=== PATIENT | female | born 1990 | race Hispanic/Latino ===

== ENCOUNTER 2022-08-09 07:15 | Outpatient (CLI) | payer OTHER, SELFPAY ==
[2022-08-09 07:44] VITALS: BP 117/74; PULSE 68; O2SAT 98
[2022-08-09 07:45] VITALS: TEMP 36.6; O2SAT 100
[2022-08-09 07:46] VITALS: O2SAT 82
[2022-08-09 08:20] VITALS: BMI 25.5
--- NOTE | 2022-08-13 15:00 | OB.TRI.HP_ITS ---
HPI - General General Date of Service: 08/09/22 HPI Narrative ROSENDO NOYOLA, is a 32 F who presents with decreased movement PFSH PFSH Home Medications Levothroid 08/09/22 [History Last Taken 08/08/22] 08/09/22 [History Last Taken 08/08/22] Allergy/AdvReac Type Severity Reaction Status Date / Time No Known Allergies Allergy Verified 08/09/22 08:24 NST FHR Rate Baby A Baseline: 120 Variability:: Moderate Accelerations:: 15 x 15 Decelerations:: None NST Reactive:: Yes Uterine Activity:: Few contractions Assessment & Plan (1) : PLAN: Called by nursing patient with care at [facility] [place] [place] with decreased movement. NST reactive. Okay to discharge home and follow-up at scheduled appointments
== END 2022-08-09 08:25 | disposition home or self-care (01) ==
LOC: WPOUT 07:35 → WP 07:36
PROVIDERS: Visit Provider Obstetrics & Gynecology
DX: O36.8190 Decreased fetal movements, unspecified trimester, not applicable or unspecified (principal); Z3A.00 Weeks of gestation of pregnancy not specified
CPT/HCPCS: 59025; 59050

== ENCOUNTER 2024-04-22 07:31 | Inpatient (IN) | payer OTHER, SELFPAY ==
[2024-04-22] VITALS (32 sets, daily range): BP systolic 91–126; BP diastolic 49–77; PULSE 62–84; RESP 14–16; TEMP 36.2–37.4; O2SAT 88–100; BMI 24.1
[2024-04-22] MEDS: Lactated Ringers 1,000 ML 999 ML IV (05:40)
[2024-04-22] MEDS: Ondansetron 4 MG/2 ML Vial IV (05:59)
[2024-04-22 06:12] LABS: Absolute Lymphocyte Count 1.47 X10^3/uL (0.83-4.51); Absolute Neutrophil Count 8.6 X10^3/uL (2.0-7.7); Basophil# 0.08 X10^3/uL; Basophil% 0.7 % (0-1); Eosinophil# 0.12 X10^3/uL; Eosinophils% 1.1 % (0-5); Hematocrit 33.9 % (37-47); Hemoglobin 12.5 g/dL (12.0-15.0); Lymphocyte # 1.47 X10^3/ul (0.83-4.51); Lymphocyte % 13.4 % (19-41); Mean Corp Hgb Conc 36.9 g/dL (32-36); Mean Corpuscular Hgb 33.2 pg (27.0-32.0); Mean Corpuscular Volume 89.9 fL (81-99); Mean Platelet Vol. 9.9 fl (6.2-12.0); Monocyte# 0.59 X10^3/uL; Monocyte% 5.4 % (0-10); NRBC Flagged by Analyzer 0 % (0-5); Neutrophil # 8.61 X10^3/uL (2.7-7.7); Neutrophil % 78.7 % (47-70); Platelet Count 231 K/mm3 (150-450); RBC Distribution Width SD 39.5 fl (35.1-43.9); Red Blood Count 3.77 M/mm3 (4.2-5.4)
[2024-04-22 06:48] LABS: ALB/GLOB Ratio 1.3 RATIO (0.9-2.4); AST(SGOT) 17 U/L (<=31); Alanine Aminotransfer ALT/SGPT 8 U/L (<=34); Albumin, Serum 3.6 g/dL (3.5-5.0); Alkaline Phosphatase 111 U/L (35-104); Anion Gap 10 (5-15); BUN 8 mg/dL (4-19); BUN/Creat Ratio 14.3 RATIO (10-20); Calcium 8.6 mg/dL (7.6-11.0); Carbon Dioxide 21.6 mmol/L (22.0-29.0); Chloride 106 mmol/L (96-108); Creatinine, Serum 0.54 mg/dL (0.70-1.20); EST Glomerular Filtration Rate 125 (>60); Estimated Creatinine Clearance 150.88 ml/min; Globulin 2.7 g/dL (2.2-4.2); Glucose 87 mg/dL (70-99); Potassium 3.2 mmol/L (3.3-5.1); Protein, Total 6.3 g/dL (5.9-8.4); Sodium Level 137 mmol/L (133-145); Syphilis Antibodies Nonreactive (Nonreactive); Total Bilirubin 0.31 mg/dL (0.00-1.30)
[2024-04-22 06:51] LABS: Record Kit Lot#, fFN D4035
[2024-04-22 06:52] LABS: Fetal Fibronectin POSITIVE
[2024-04-22] MEDS: Magnesium Sulfate 4gm/100mL 4 GM/100 ML IV.SOLN. IV (06:54)
[2024-04-22] MEDS: Betamethasone/Betamethasone 30 MG/5 ML Vial 12 MG IM (07:02)
--- NOTE | 2024-04-22 07:03 | HP.PCM.OB_ITS ---
HPI - General General Date of Admission: 04/22/24 Date of Service: 04/22/24 Chief Complaint: labor HPI Narrative ROSENDO NOYOLA, is a 33 F who presents with contractions. No vb or lof. Good FM. She has had nausea and vomiting as well. PFSH PFSH Home Medications ?Medication ?Instructions ?Recorded ?Last Taken ?Type levothyroxine 50 mcg tablet 50 mcg PO DAILY 04/22/24 0 04/21/24 History (Euthyrox) vits,calcium 91-iron 28 pkg PO DAILY pregnanc y 04/22/24 04/21/24 History mg-folic 975 mcg-dha 200 mg oral pack ( + DHA) sertraline 25 mg tablet (Zoloft) 25 mg PO DAILY 04/21/24 History Allergy/AdvReac Type Severity Reaction Status Date / Time No Known Allergies Allergy Verified 04/22/24 06:03 History Addt'l History: History 3rd degree laceration with first . This has been complicated by single umbilical artery, velamentous cord insertion and double bubble appearance on ultrasound of the abdomen. She was referred to the care center and was planning delivery at tertiary care center. NST FHR Rate Baby A Baseline: 130 Variability:: Moderate Vital Signs Vital Signs Vital Signs: 04/22/24 05:10 04/22/24 05:10 04/22/24 05:14 Pulse Rate 80 Blood Pressure 111/71 BP Systolic 111 BP Diastolic 71 Pulse Ox 100 04/22/24 05:14 Pulse Rate 77 Blood Pressure BP Systolic BP Diastolic Pulse Ox Weight Weight: 159 lb Body Mass Index (BMI) 24.1 Labs Labs Labs: Blood Type Pending Hct 33.9 % (37-47) L Hgb 12.5 g/dL (12.0-15.0) Syphilis Total Ab Nonreactive (Nonreactive) Assessment & Plan (1) 30 weeks gestation of : (2) labor: PLAN: Patient made cervical change from 1.5/50/-3 to 5/80/-3 with BBOW in 1 hour after IVF hydration. GBS and FFN were collected on admission. Mag gtt and PCN started. BMZ x 1 given. Bedside TAUS performed confirming baby is vertex. Vertex on exam as well. Epidural PRN pain control. (3) Single umbilical artery: (4) Velamentous insertion of umbilical cord: (5) Abnormal ultrasound: PLAN: Prominent CSP and double bubble sign. Patient was planning delivery at tertiary care center. Unable to safely transport patient given fast progression of labor. Telecommunications Officer aware and planning transport. (6) History of third degree perineal laceration:
[2024-04-22] MEDS: Magnesium Sulfate 4gm/100mL 2 GM/50 ML IV.SOLN. IV (07:15)
[2024-04-22 07:18] LABS: Color, Urine Yellow (Yellow); Glucose, Dipstick Normal (Normal); Ketone-Dipstick Negative (Negative); Leukocyte Esterase-Dipstick 25 /ul (Negative); Nitrite-Dipstick Negative (Negative); Occult Blood-Urine 25 /ul (Negative); Protein-Dipstick 30 mg/dl (Negative); Urine Bilirubin Dipstick Negative (Negative); Urine Clarity Sl. Cloudy (Clear); Urine Urobilinogen Normal (Normal); Urine pH 6.5 (5.0 - 8.0)
[2024-04-22] MEDS: Penicillin G Pot 5,000,000 UNITS in 0.9% Normal Saline (100mL MB+) 100 ML 150 UNITS IV (07:21)
--- NOTE | 2024-04-22 07:26 | PCM.PN.BLA ---
Progress Note Patient still uncomfortable with contractions. Assessment & Plan Assessment/Plan (1) History of third degree perineal laceration: (2) Abnormal ultrasound: (3) Velamentous insertion of umbilical cord: (4) Single umbilical artery: (5) labor: PLAN: Cervix re examined and /-3 BBOW, vertex presentation. Discussed with patient baby is not engaged in the pelvis. Vertex presentation. There is no funic presentation at this time. However encouraged patient to get an epidural for pain control in case there is an emergency such as a prolapsed cord with rupture of membranes, or baby turns to a non vertex presentation. Will deliver in OR. Discussed possible section but since still vertex planning vaginal delivery at this time. (6) 30 weeks gestation of :
[2024-04-22] MEDS: Lactated Ringers 1,000 ML 200 ML IV (07:30)
[2024-04-22 07:31] LABS: Bacteria 1+ /hpf (None Seen); Mucous, Urine 2+ /hpf (<or=2+); Red Blood Cells-Urine 0-5 SEEN /hpf (0-5); Squamous Epithelial Cells - UA 0-5 SEEN /hpf (5-10); White Blood Cells 0-5 SEEN /hpf (0-5)
[2024-04-22] MEDS: Magnesium Sulfate 20 GM/500 ML BAG 50 GM CONT INF (07:34)
--- NOTE | 2024-04-22 08:04 | PCM.PN.BLA ---
Progress Note Patient sitting up for epidural and I was called to bedside as RN concern for SROM. Assessment & Plan Assessment/Plan (1) History of third degree perineal laceration: (2) Abnormal ultrasound: (3) Velamentous insertion of umbilical cord: (4) Single umbilical artery: (5) labor: PLAN: Cvx difficult to exam given BBOW. head still palpated/vertex presentation. Intact membranes or a Forebag present. Cvx palpated anterior and along left and right sides. Patient will get epidural and then we will move to OR. (6) 30 weeks gestation of :
[2024-04-22] MEDS: fentaNYL-bupivacaine (epidural) 100 ML BAG EPIDURAL (08:15)
[2024-04-22] MEDS: Oxytocin 15 Units/NS 250ml 15 UNITS/250 ML IV.SOLN 999 UNITS IV (09:00)
[2024-04-22] MEDS: miSOPROStol 200 MCG Tablet 1000 MCG RC (09:35)
--- NOTE | 2024-04-22 09:57 | EX.PCM.OBVAG ---
Assessment & Plan (1) History of third degree perineal laceration: (2) Abnormal ultrasound: (3) Velamentous insertion of umbilical cord: (4) Single umbilical artery: (5) labor: (6) 30 weeks gestation of : Vaginal Delivery Maternal Presentation Maternal Presentation: Active Labor Type of Induction: Amniotomy Vaginal Delivery Information Procedure Performed: Spontaneous Vaginal Delivery Surgeon/Practitioner: Corinna Pichardo Date of Procedure: 04/22/24 Pre-Procedure Diagnosis: 30 week gestation, labor, anomaly on ultrasound, velamentous cord insertion, single umbilical artery Post-Procedure Diagnosis: As above Type of anesthesia: Epidural Special Medications: None Estimated Blood Loss: 75 mL Fluids Replaced: N/A Findings Description of procedure: Once the patient received her epidural she was taken back to the OR. Cvx 890/-2, vertex with a BBOW. Bedside TAUS performed showing vertex presentation as well and no funic presentation. Mint Wafer Depositor had requested to wait for rupture until transport team had arrived. However on bedside ultrasound FHT 40-50 bpm. Patient placed back on monitoring and FHT 50's bpm. Given this, AROM was performed for mostly clear fluid with some blood present. Cervix re examined and 990/-1. FHT was still in the 50's. The decision was made to start preparing the patient for a section. The FHT then started to recover to 90 bpm and the patient felt pressure. Cvx 10/100/0 station. Patient was placed in dorsal lithotomy position for a vaginal delivery. With one contraction and maternal pushing, the head and body delivered without traction, force or delay. The cord was clamped and cut immediately and the infant was handed off to the awaiting nursery staff. The placenta delivered spontaneously and was noted to be intact. There was a velamentous cord insertion and a 2 VC. The placenta was sent to pathology for review. A periurethral tear was noted to be bleeding. Pressure was applied for several minutes, however it continued to bleeding. The urethra was cleaned with betadine, and a straight catheter was inserted. The bladder was drained for 200 mL urine. The catheter was left in place during the repair. Two interrupted stitches were placed using 3-0 Vicryl to achieve hemostasis of the periurethral tear. No other lacerations were noted upon inspection. The catheter was removed. The patient then had several gushes of blood. The uterus was explored and no retained POC's were noted. The fundus was then firm and bleeding scant. Pitocin and rectal cytotec were given. A vaginal sweep was performed. Sponge and needle counts were correct. Procedure findings: VMI in vertex presentation. Clear - bloody fluid. Velamentous cord insertion of placenta with 2 VC Presentation: Vertex Amniotic Membrane Rupture Type: Artificial Amniotic Fluid Description: Clear and Bloody Placental Delivery Description: Spontaneous Placenta Disposition: Sent to Pathology Specimen collected: Yes Description of specimen(s) removed: Placenta Cord Vessel Description: 2 Vessels Cord Entanglement: None Cord Gases: ABG (RN attempted) and VBG (RN attempted) Infant A Gender: Male Delayed Cord Clamping: No Student Finance Advisor cushion assembler: No Post Vaginal Deli Medications given after delivery: IV Pitocin and Other (Cytotec) Laceration: Periurethral Extnsion/lac Complication Complications: No
[2024-04-22] MEDS: Sertraline 50 MG Tablet 25 MG PO (13:29)
[2024-04-22] MEDS: Levothyroxine 50 MCG Tablet PO (16:38)
== END 2024-04-22 16:45 | disposition home or self-care (01) | DRG 807 ==
PROVIDERS: Admitting Provider Obstetrics & Gynecology; Referring Provider Obstetrics & Gynecology; Visit Provider Obstetrics & Gynecology
DX: O60.14X0 Preterm labor third trimester with preterm delivery third trimester, not applicable or unspecified (principal); Z37.0 Single live birth; Z3A.30 30 weeks gestation of pregnancy; O43.123 Velamentous insertion of umbilical cord, third trimester; O71.82 Other specified trauma to perineum and vulva
CPT/HCPCS: 59025; 59050; 80053; 81001; 82731; 85025; 86780; 86850; 86900; 86901; 87081; 87653; J0702; J2405

== ENCOUNTER 2025-02-03 19:06 | Emergency (ER) | payer OTHER, SELFPAY ==
[2025-02-03 19:06] VITALS: BP 124/73; PULSE 91; RESP 18; TEMP 36.1; O2SAT 97; BMI 22.9
--- NOTE | 2025-02-03 19:23 | ED.VIS.GI ---
HPI HPI - GI History of Present Illness Chief Complaint: Abd Pain Informant: patient and spouse/S.O. Narrative Narrative: 34-year-old female presenting to the emergency room with a chief complaint of vomiting diarrhea. Patient states that this morning around 11:00 she began to experience vomiting. She states it has persisted throughout the day and is now included diarrhea. No fever. She notes abdominal cramping. She states that last night she felt well she was out with her sister who is feeling well. She does not believe she had any bad food. No rashes. No prior abdominal surgeries. No one else sick at home. She states she had a viral URI last week that she has basically recovered from. Patient states that she had spoke with phone nurse for her doctor's office. She states that it was recommended that if she had continued symptoms past 8 hours to come to emergency. She states that she was diagnosed with IBS in her 20s but states that she does not take any medicines for that and has been doing well from an IBS standpoint [facility] Medical History Depression Anxiety IBS (irritable bowel syndrome) Asthma depression Hypothyroid Home Medications ?Medication ?Instructions ?Recorded ?Last Taken ?Type sertraline 25 mg tablet (Zoloft) 50 mg PO DAILY depression 04/22/24 04/21/24 History levothyroxine 88 mcg tablet 88 mcg PO DAILY 02/03/25 Unknown History norethindrone (contraceptive) 0.35 0.35 mg PO DAILY 02/03/25 Unknown History mg tablet (Incassia) ondansetron 4 mg disintegrating 4 mg PO Q6H PRN PRN Nausea #15 tabs 02/03/25 Unknown Rx tablet Allergy/AdvReac Type Severity Reaction Status Date / Time No Known Allergies Allergy Verified 02/03/25 19:09 Family History Brother Heart murmur Mother Heart murmur Surgical History H/O breast augmentation History of tonsillectomy and adenoidectomy Social History Smoking Status: Never smoker ROS ROS ED Constitutional Constitutional ED: Reports sweats; Denies chills, fever(s) or weight loss Eyes Eyes: Denies change in vision or diplopia ENT ENT ED: Denies ear pain, rhinorrhea or sore throat Cardiovascular Cardiovascular: Denies chest pain, orthopnea, palpitations or racing heartbeat Respiratory/Chest Respiratory/Chest: Denies cough, dyspnea or orthopnea Gastrointestinal Gastrointestinal: Reports abdominal pain, diarrhea, nausea and vomiting Genitourinary Genitourinary ED: Denies dysuria, hematuria or urinary frequency Musculoskeletal Musculoskeletal: Denies arthralgias or myalgias Integumentary Denies abscess or rash Neurologic Neurologic: Denies headache(s) or weakness Psychiatric Psychiatric: Denies anxiety, depression, suicidal ideation or suicidal thoughts Endocrine Endocrinology: Denies polydipsia, polyphagia or polyuria Allergic/Immunologic Allergic/Immunologic ED: Denies mouth swelling, tongue swelling or urticaria EXAM Physical Exam Const Vital Signs: 02/03/25 19:06 Temperature 97 F L Temperature Source Temporal Pulse Rate 91 Respiratory Rate 18 Blood Pressure 124/73 H Blood Pressure Mean 90 Pulse Ox 97 Oxygen Delivery Method Room Air Positive well nourished and well developed General Appearance ED: well developed and NAD HEENT Reports normocephalic, head/scalp atraumatic and dry mucous membranes HEENT Narrative: Dry lips Mouth ED: Yes dry mucous membranes Mouth: dry mucous membranes Eyes PERRL and EOMs intact bilaterally Neck no lymphadenopathy, supple and no JVD Resp normal respiratory effort and clear to auscultation bilaterally Cardio regular rate, regular rhythm and no murmurs GI no masses Inspection: Negative for abdominal distention Auscultation: normoactive bowel sounds Palpation: soft and tender RLQ; Negative for guarding or rebound tenderness present Back/Spine no CVA tenderness and normal ROM Extremity normal to inspection General Extremety ED: Negative for edema General Extremity: Negative for edema Neuro oriented x3 and CN's II-XII intact bilaterally Sensorium / Orientation: alert Motor Exam: strength 5/5 throughout Psych mental status grossly normal Mood & Affect: Negative for depressed or tearful Skin no rashes or lesions noted and no wounds MDM MDM MDM Narrative Medical decision making narrative: Differential diagnosis includes but not limited to gastroenteritis colitis appendicitis mesenteric adenitis epiploic appendagitis dehydration electrolyte abnormalities Basic blood work obtained shows white count 12.9 there is 94.6 neutrophils lymphocytes 1.7. BMP shows a glucose of 112 normal creatinine CO2 of 21.4 anion gap is 12. Liver enzymes are normal lipase is normal at 14 test is negative. Patient received IV fluids as well as Zofran. She has been able to tolerate p.o. She states that she is feeling better. She continues to have some mild tenderness in the right lower quadrant. I spoke with her and her regarding the above results and whether or not to perform CT imaging. They are comfortable getting a CT. CT returned with no evidence of appendicitis. There is changes consistent with more of a diarrheal illness. I will write for the patient of Zofran at home. Imodium as needed. Monitor for changes return if worsening or concerns. Patient is comfortable with this plan History & Record Review Discussion w/independent historian: Patient and Significant other Additional record(s) reviewed:: Prior labs Lab Data Attestation: I reviewed the patient's lab results. Labs: Laboratory Results - last 24 hr 02/03/25 19:31 WBC 12.9 H RBC 4.52 Hgb 14.4 Hct 41.7 MCV 92.3 MCH 31.9 MCHC 34.5 RDW Std Deviation 38.9 RDW Coeff of Sanjay 11.5 L Plt Count 226 MPV 9.6 Immature Gran % (Auto) 0.300 Neut % (Auto) 94.6 H Lymph % (Auto) 1.7 L Dare % (Auto) 2.8 Eos % (Auto) 0.4 Baso % (Auto) 0.2 Absolute Neuts (auto) 12.2 H Absolute Lymphs (auto) 0.22 L Nucleated RBC % 0 Sodium 139 Potassium 3.9 Chloride 106 Carbon Dioxide 21.4 Anion Gap 12 BUN 15 Creatinine 0.66 L Estim Creat Clear Calc 122.30 Est GFR (MDRD) Non-Af 119 BUN/Creatinine Ratio 22.4 H Glucose 112 H Calcium 8.9 Total Bilirubin 0.87 Direct Bilirubin 0.36 H AST 18 ALT 13 Alkaline Phosphatase 57 Total Protein 7.1 Albumin 4.3 Globulin 2.8 Lipase 14 Serum , Qual NEGATIVE Radiography Diagnostic Testing: Clinical Impression(s) from Imaging Studies Abdomen/Pelvis CT 02/03/25 20:13 IMPRESSION: Mildly thickened loops of jejunum within the left upper quadrant, suggestive of mild jejunitis. Fluid within the endocervical canal. Please correlate with the patient's menstrual cycle. Reading Location: [id number] Discharge Plan Triage Chief Complaint: Abd Pain ED Provider: Kenneth Pepper Dx/Rx/DC Orders Clinical Impression: Vomiting and diarrhea, Abdominal pain Instructions: ED Gastroenteritis, Viral (Adult) Prescriptions: New ondansetron 4 mg tablet,disintegrating 4 mg PO Q6H PRN PRN (Reason: Nausea) Qty: 15 0RF No Action sertraline [Zoloft] 25 mg tablet 50 mg PO DAILY levothyroxine 88 mcg tablet 88 mcg PO DAILY norethindrone (contraceptive) [Incassia] 0.35 mg tablet 0.35 mg PO DAILY Primary Care Provider: Joseph Sotelo Referrals: Care Physician,No Primary [Non-Staff, Medical] Print Language: Danish Disposition Disposition: Home, Self Care
[2025-02-03] MEDS: 0.9% Normal Saline (1000mL) 1,000 ML 999 ML IV (19:29)
--- OUTSIDE RECORDS SUMMARY | 2025-02-03 19:34 | XMS RPT_ITS | CCD ---
Author Organization [facility] Care Team Providers Care Casing Builder Name Role Phone Mariaelena Lr Unavailable Unavailable Unknown, Referring Provider Unavailable Unav ailable John Barrett Unavailable Unavailable Unavailable Unavailable Unavailable Unavailable Unavailable Unavailable Bridget Abdul Unavailable Bridget Abdul Unavailable Ashlyn Grajeda Unavailable Unavailable Melissa Fang Unavailable Unavailable Unavailable Unavailable Unavailable Unavailable MD MELISSA FANG Attending Elizabeth MD MELISSA Espinoza Referring Elizabeth vaNamita Jara Attending Unavailable Dr. Bridget Abdul Primary Care Unavailable Osmin MsAilin Mohra Malik Attending MD MELISSA Sarabia Attending Elizabeth Dr. Bridget Ruff Primary Care Unavailable MD MELISSA FANG Attending Elizabeth Dr. Bridget Ruff Primary Care Unavailable MD MELISSA FANG Attending Elizabeth verónicailaDr. Bridget Burleson Primary Care Unavailable MD MELISSA FANG Referring Elizabeth MD MELISSA Espinoza Attending Elizabeth MD MELISSA Espinoza Referring Elizabeth MD MELISSA Espinoza Attending Elizabeth vailable Markell Phillip Attending Unavailable MD MELISSA FANG Attending Elizabeth vailable Cindy Deal Attending Unavailable Dr. Bridget Abdul Primary Care Unavailable MD MELISSA FANG Attending Elizabeth verónicailaDr. Bridget Burleson Primary Care Unavailable LEONCIO, MD MELISSA RAYMUNDO Referring Elizabeth vailable LEONCIO, MD MELISSA RAYMUNDO Referring Elizabeth vailable LEONCIO, MD MELISSA RAYMUNDO Attending Elizabeth vailable LEONCIO, MD MELISSA RAYMUNDO Referring Elizabeth vailable LEONCIO, MD MELISSA RAYMUNDO Attending Elizabeth vailable LEONCIO, MD MELISSA RAYMUNDO Referring Elizabeth vailable LEONCIO, MD MELISSA RAYMUNDO Attending Elizabeth vailable LEONCIO, MD MELISSA RAYMUNDO Attending Elizabeth vailable Carroccio, Dr. Gill Primary Care Unavailable LEONCIO, MD MELISSA RAYMUNDO Referring Elizabeth vailable LEONCIO, MD MELISSA RAYMUNDO Referring Elizabeth vailable LEONCIO, MD MELISSA RAYMUNDO Attending Elizabeth vailable Spoden, Ailin Susannahlia Khan Attending Unavai lable Spoden, Ms. Susannah Khan Referring Unavai labsantana FANG, MD MELISSA RAYMUNDO Referring Elizabeth vailable LEONCIO, MD MELISSA RAYMUNDO Attending Elizabeth vailable LEONCIO, MD MELISSA RAYMUNDO Attending Elizabeth vailable Giraud, Dr. Jayro Pulido Referring Unavailable LEONCIO, MD MELISSA RAYMUNDO Attending Elizabeth vailable LEONCIO, MD MELISSA RAYMUNDO Attending Elizabeth vailable BETTIEMARIAA SAUCEDO Attending Unavailable Chantell, Dr. Gill Primary Care Unavailable MD MELISSA FANG Referring Elizabeth vailable Sandra Courtney Attending Unavailabl e Sandra Courtney Admitting Unavailrahul e MD MELISSA FANG Referring Elizabeth vailable LEONCIO, MD MELISSA RAYMUNDO Attending Elizabeth vailable MD MELISSA FANG Attending Elizabeth vailable Chantell, Dr. Gill Primary Care Unavailable MD MELISSA FANG Referring Elizabeth vailable Carolyn, Dr. Namita Bishop Attending Unava ilable Chantell, Dr. Gill Primary Care Unavailable Chantell, Dr. Gill Referring Unavailable Bridget Adbul DO Primary Care Provider NAMITA DYE Attending Unavailable NAMITA DYE Referring Unavailable BRIDGET ABDUL Primary Care Unavailable BRIDGET ABDUL Attending Unavailable BRIDGET ABDUL Primary Care Unavailable Lena COFFEY, Tomas Gan Primary Care Provider Unavailable Primary Care Provider Unavailrahul Candelaria MD, Joseph Mckinney Primary Care Provider Carline RN, Esmer Unavailable Unavailable SAULO PANIAGUA Attending Unavailable CORDELL, CORDELL Referring Unavailable Carline RN, Esmer Unavailable Unavailable Care Physician, No Primary Primary Care Unava ilable WisDarek holliday Referring Unavailable WisDarek holliday Attending Unavailable Wiswell, Darek Admitting Unavailable Bridenthal CLIENT CONSULTANT - COSMETICIAN, Rosette Unavailable Bridenthal CLIENT CONSULTANT - COSMETICIAN, Rosette Unavailable ARLEN DURAN Referring Unavailable Center Comment on above: Performed By: #### C BCDF ####[id number] [place] [address] Monocytes (Bld) [#/Vol] 0.40 10*3/uL Normal 0.10 - 1.00 [facility] Comment on above: Performed By: #### C BCDF ####[id number] [place] [address] Monocytes/100 WBC (Bld) 7.9 % Normal 2.0 - 10.0 [facility] Comment on above: Performed By: #### C BCDF ####[id number] [place] [address] Neutrophils (Bld) [#/Vol] 2.19 10*3/uL Normal 1.20 - 7.70 [facility] Comment on above: Performed By: #### C BCDF ####[id number] [place] [address] Neutrophils/100 WBC (Bld) 43.1 % Normal 40.0 - 80.0 [facility] Comment on above: Performed By: #### C BCDF ####[id number] [place] [address] NUCLEATED RBC 0.0 /100 WBC Normal 0.0-0.0 [facility] Comment on above: Performed By: #### C BCDF ####[id number] [place] [address] Platelets (Bld) [#/Vol] 251 10*3/uL Normal 150 - 450 [facility] Comment on above: Performed By: #### C BCDF ####[id number] [place] [address] RBC 4.02 x10E12/L Normal 4.00 - 5.20 [facility] Comment on above: Performed By: #### C BCDF ####[id number] [place] [address] WBC (Bld) [#/Vol] 5.1 10*3/uL Normal 4.4 - 11.3 [facility] Comment on above: Performed By: #### C BCDF ####[id number] [place] [address] COMPREHENSIVE PANELon 2021 Albumin [Mass/Vol] 4.0 g/dL Normal 3.4 - 5.0 [facility] Comment on above: Performed By: #### G CCHA #### [facility] [address] [place] [address] ALP [Catalytic activity/Vol] 46 U/L Normal 33 - 110 [facility] Comment on above: Performed By: #### G CCHA #### [facility] [address] [place] [address] ALT [Catalytic activity/Vol] 13 U/L Normal 7 - 45 [facility] Comment on above: Result Comment: Hyacinth ents treated with Sulfasalazine may generate falsely decreased results for ALT. Performed By: #### G CCHA #### [facility] [address] [place] [address] Anion gap [Moles/Vol] 10 mmol/L Normal 10 - 20 [facility] Comment on above: Performed By: #### G CCHA #### [facility] [address] [place] [address] AST [Catalytic activity/Vol] 14 U/L Normal 9 - 39 [facility] Comment on above: Performed By: #### G CCHA #### [facility] [address] [place] [address] Bilirubin [Mass/Vol] 0.6 mg/dL Normal 0.0 - 1.2 [facility] Comment on above: Performed By: #### G [facility] #### [facility] [address] [place] [address] Calcium [Mass/Vol] 9.2 mg/dL Normal 8.6 - 10.6 [facility] Comment on above: Performed By: #### G [facility] #### [facility] [address] [place] [address] Chloride [Moles/Vol] 108 mmol/L High 98 - 107 [facility] Comment on above: Performed By: #### G [facility] #### [facility] [address] [place] [address] Creatinine [Mass/Vol] 0.81 mg/dL Normal 0.50 - 1.05 [facility] Comment on above: Performed By: #### G [facility] #### [facility] [address] [place] [address] eGFR FEMALE >90 Normal >90 [facility] Comment on above: Result Comment: CALC ULATIONS OF ESTIMATED GFR ARE PERFORMED USING THE 2020 CKD-EPI STUDY REFIT EQUATION WITHOUT THE RACE VARIABLE FOR THE IDMS-TRACEABLE CREATININE METHODS. https://jasn.asnjournals.org/content//ASN.442802985 8 Performed By: #### G [facility] #### [facility] [address] [place] [address] Glucose [Mass/Vol] 82 mg/dL Normal 74 - 99 [facility] Comment on above: Performed By: #### G [facility] #### [facility] [address] [place] [address] HCO3 (Bld) [Moles/Vol] 27 mmol/L Normal 21 - 32 [facility] Comment on above: Performed By: #### G [facility] #### [facility] [address] [place] [address] Potassium [Moles/Vol] 4.3 mmol/L Normal 3.5 - 5.3 [facility] Comment on above: Performed By: #### G CCHA #### [facility] [address] [place] [address] Protein [Mass/Vol] 6.4 g/dL Normal 6.4 - 8.2 [facility] Comment on above: Performed By: #### G CCHA #### [facility] [address] [place] [address] Sodium [Moles/Vol] 141 mmol/L Normal 136 - 145 [facility] Comment on above: Performed By: #### G CCHA #### [facility] [address] [place] [address] Urea nitrogen [Mass/Vol] 10 mg/dL Normal 6 - 23 [facility] Comment on above: Performed By: #### G CCHA #### [facility] [address] [place] [address] Complete Blood Count + Diffe rentialon 10-10-2021 Basophils/100 WBC (Bld) 2.4 % 0.0 - 2.0 [place] [address] Work Phone: Erythrocyte distribution width (RBC) [Ratio] 12.3 % See Below [place] [address] Work Phone: Comment on above: Reference Range: 11. 5 - 14.5 Hematocrit (Bld) [Volume fraction] 38.6 % See Below [place] [address] Work Phone: Comment on above: Reference Range: 36. 0 - 46.0 Hemoglobin (Bld) [Mass/Vol] 13.4 g/dL See Below [place] [address] Work Phone: Comment on above: Reference Range: 12. 0 - 16.0 Lymphocytes/100 WBC (Bld) 37.5 % See Below [place] [address] Work Phone: Comment on above: Reference Range: 13. 0 - 44.0 MCHC (RBC) [Mass/Vol] 34.7 g/dL See Below [place] [id number] Work Phone: Comment on above: Reference Range: 32. 0 - 36.0 MCV (RBC) [Entitic vol] 96 fL 80 - 100 [place] [address] Work Phone: Monocytes/100 WBC (Bld) 7.9 % 2.0 - 10.0 [place] [address] Work Phone: Neutrophils/100 WBC (Bld) 43.1 % See Below [place] [address] Work Phone: Comment on above: Reference Range: 40. 0 - 80.0 Platelets (Bld) [#/Vol] 251 10*3/uL 150 - 450 [place] [address] Work Phone: RBC (Bld) [#/Vol] 4.02 {x10E12/L} See Below [place] [address] Work Phone: Comment on above: Reference Range: 4.0 0 - 5.20 WBC (Bld) [#/Vol] 5.1 10*3/uL 4.4 - 11.3 [place] [address] Work Phone: Complete Blood Count + Differential 0.12 {x10E9/L} above high threshold See Below [place] [address] Work Phone: Comment on above: Reference Range: 0.0 0 - 0.10 Complete Blood Count + Differential 0.45 {x10E9/L} See Below [place] [address] Work Phone: Comment on above: Reference Range: 0.0 0 - 0.70 Complete Blood Count + Differential 0.40 {x10E9/L} See Below [place] [address] Work Phone: Comment on above: Reference Range: 0.1 0 - 1.00 Complete Blood Count + Differential 1.90 {x10E9/L} See Below [place] [address] Work Phone: Comment on above: Reference Range: 1.2 0 - 4.80 Complete Blood Count + Differential 2.19 {x10E9/L} See Below [place] [address] Work Phone: Comment on above: Reference Range: 1.2 0 - 7.70 Complete Blood Count + Differential 8.9 % 0.0 - 6.0 [place] [address] Work Phone: Complete Blood Count + Differential 0.2 % 0.0 - 0.9 [place] [address] Work Phone: Comment on above: Immature Granulocyte Count (IG) includes promyelocytes, myelocytes and metamyelocytes but does not include bands. Percent differential counts (%) should be interpreted in the context of the absolute cell counts (cells/L). Complete Blood Count + Differential 0.0 {/100_WBC} 0.0-0.0 [place] [address] Work Phone: LIPID PANEL (CORONARY RISK 2 )on 10-10-2021 Cholesterol [Mass/Vol] 143 mg/dL Normal 0 - 199 [facility] Comment on above: Result Comment: . AGE DESIRABLE BORDERLINE HIGH HIGH 0-19 Y 0 - 169 170 - 199 >/= 200 20-24 Y 0 - 189 190 - 224 >/= 225 >24 Y 0 - 199 200 - 239 >/= 240 All ranges are based on fasting samples. Specific therapeutic targets will vary based on patient-specific cardiac risk. . Pediatric guidelines reference:Pediatrics 2011, 128(S5). Adult guidelines reference: NCEP ATPIII Guidelines, [place] 2001, 258:2486-97 . Venipuncture immediately after or during the administration of Metamizole may lead to falsely low results. Testing should be performed immediately prior to Metamizole dosing. Performed By: #### L IPID ####[id number] [place] [address] Cholesterol in HDL [Mass/Vol] 63.4 mg/dL Normal [facility] Comment on above: Result Comment: . AGE VERY LOW LOW NORMAL HIGH 0-19 Y < 35 < 40 40-45 ---- 20-24 Y ---- < 40 >45 ---- >24 Y ---- < 40 40-60 >60 . Performed By: #### L IPID ####[id number] [place] [address] Cholesterol in LDL [Mass/Vol] 69 mg/dL Normal 0 - 99 [facility] Comment on above: Result Comment: . NEAR BORD AGE DESIRABLE OPTIMAL HIGH HIGH VERY HIGH 0-19 Y 0 - 109 --- 110-129 >/= 130 ---- 20-24 Y 0 - 119 --- 120-159 >/= 160 ---- >24 Y 0 - 99 100-129 130-159 160-189 >/=190 . Performed By: #### L IPID ####[id number] [place] [address] Cholesterol in VLDL [Mass/Vol] 11 mg/dL Normal 0 - 40 [facility] Comment on above: Performed By: #### L IPID ####[id number] [place] [address] Cholesterol.total/ Cholesterol in HDL [Mass ratio] 2.3 {ratio} Normal [facility] Comment on above: Result Comment: REF VALUES DESIRABLE < 3.4 HIGH RISK > 5.0 Performed By: #### L IPID ####[id number] [place] [address] Triglyceride [Mass/Vol] 54 mg/dL Normal 0 - 149 [facility] Comment on above: Result Comment: . AGE DESIRABLE BORDERLINE HIGH HIGH VERY HIGH 0 D-90 D 19 - 174 ---- ---- ---- 91 D- 9 Y 0 - 74 75 - 99 >/= 100 ---- 10-19 Y 0 - 89 90 - 129 >/= 130 ---- 20-24 Y 0 - 114 115 - 149 >/= 150 ---- >24 Y 0 - 149 150 - 199 200- 499 >/= 500 . Venipuncture immediately after or during the administration of Metamizole may lead to falsely low results. Testing should be performed immediately prior to Metamizole dosing. Performed By: #### L IPID ####[id number] [place] [address] Laboratory - Chemistry and C hemistry - challengeon 10-10-2021 Albumin BCP dye [Mass/Vol] 4.0 g/dL 3.4 - 5.0 [place] [address] Work Phone: [phone] ALP [Catalytic activity/Vol] 46 U/L 33 - 110 [place] [address] Work Phone: [phone] ALT With P-5'-P [Catalytic activity/Vol] 13 U/L 7 - 45 [place] [address] Work Phone: Comment on above: Patients treated wit h Sulfasalazine may generate falsely decreased results for ALT. Anion gap [Moles/Vol] 10 mmol/L 10 - 20 [place] [address] Work Phone: [phone] AST With P-5'-P [Catalytic activity/Vol] 14 U/L 9 - 39 [place] [address] Work Phone: Bilirubin [Mass/Vol] 0.6 mg/dL 0.0 - 1.2 [place] [address] Work Phone: [phone] Calcium [Mass/Vol] 9.2 mg/dL 8.6 - 10.6 [place] [address] Work Phone: [phone] Chloride [Moles/Vol] 108 mmol/L above high threshold 98 - 107 [place] [address] Work Phone: [phone] CO2 [Moles/Vol] 27 mmol/L 21 - 32 [place] [address] Work Phone: [phone] Creatinine [Mass/Vol] 0.81 mg/dL See Below [place] [address] Work Phone: Comment on above: Reference Range: 0.5 0 - 1.05 Glucose [Mass/Vol] 82 mg/dL 74 - 99 [place] [address] Work Phone: Potassium [Moles/Vol] 4.3 mmol/L 3.5 - 5.3 [place] [address] Work Phone: Protein [Mass/Vol] 6.4 g/dL 6.4 - 8.2 [place] [address] Work Phone: Sodium [Moles/Vol] 141 mmol/L 136 - 145 [place] [address] Work Phone: TSH Qn 5.81 m[IU]/L above high threshold See Below [place] [address] Work Phone: Comment on above: Reference Range: 0.4 4 - 3.98 TSH testing is performed using different testing methodology at [facility] than at other [facility]. Direct result comparisons should only be made within the same method. Urea nitrogen [Mass/Vol] 10 mg/dL 6 - 23 [place] [address] Work Phone: Lipid Panelon 10-10-2021 Cholesterol [Mass/Vol] 143 mg/dL 0 - 199 [place] [address] Work Phone: Comment on above: . AGE DESIRABLE BORD DONG HIGH HIGH 0-19 Y 0 - 169 170 - 199 >/= 200 20-24 Y 0 - 189 190 - 224 >/= 225 >24 Y 0 - 199 200 - 239 >/= 240 All ranges are based on fasting samples. Specific therapeutic targets will vary based on patient-specific cardiac risk.. Pediatric guidelines reference:Pediatrics 2011, 128(S5). Adult guidelines reference: NCEP ATPIII Guidelines, [place] 2001, 258:2486-97. Venipuncture immediately after or during the administration of Metamizole may lead to falsely low results. Testing should be performed immediately prior to Metamizole dosing. Cholesterol in HDL [Mass/Vol] 63.4 mg/dL [place] [address] Work Phone: Comment on above: . AGE VERY LOW LOW N ORMAL HIGH 0-19 Y < 35 < 40 40-45 ---- 20- 24 Y ---- < 40 >45 ---- >24 Y ---- < 40 40-60 >60. Cholesterol in LDL [Mass/Vol] 69 mg/dL 0 - 99 [place] [address] Work Phone: Comment on above: . NEAR BORD AGE MANDO RABLE OPTIMAL HIGH HIGH VERY HIGH 0-19 Y 0 - 109 --- 110-129 >/= 130 ---- 20-24 Y 0 - 119 --- 120-159 >/= 160 ---- >24 Y 0 - 99 100-129 130-159 160-189 >/=190. Cholesterol.total/ Cholesterol in HDL [Mass ratio] 2.3 {ratio} [place] [address] Work Phone: Comment on above: REF VALUESDESIRABLE < 3.4HIGH RISK > 5.0 Triglyceride [Mass/Vol] 54 mg/dL 0 - 149 [place] [address] Work Phone: Comment on above: . AGE DESIRABLE BORD DONG HIGH HIGH VERY HIGH 0 D-90 D 19 - 174 ---- ---- ----91 D- 9 Y 0 - 74 75 - 99 >/= 100 ---- 10-19 Y 0 - 89 90 - 129 >/= 130 ---- 20-24 Y 0 - 114 115 - 149 >/= 150 ---- >24 Y 0 - 149 150 - 199 200- 499 >/= 500. Venipuncture immediately after or during the administration of Metamizole may lead to falsely low results. Testing should be performed immediately prior to Metamizole dosing. Lipid Panel 11 mg/dL 0 - 40 [place] [address] Work Phone: No Panel Informationon 10-10 >90 >90 [place] [address] Work Phone: Comment on above: CALCULATIONS OF DARIANA MATED GFR ARE PERFORMED USING THE 2020 CKD-EPI STUDY REFIT EQUATION WITHOUT THE RACE VARIABLE FOR THE IDMS-TRACEABLE CREATININE METHODS.https://jasn.asnjournals.org/content//ASN.2 396832189 T4 - Free Thyroxine, Serumon 10-10-2021 Free T4 [Mass/Vol] 1.01 ng/dL See Below -[facility] [place] [address] Work Phone: Comment on above: Reference Range: 0.7 8 - 1.48 Thyroxine Free testing is performed using different testing methodology at [facility] than at other [facility]. Direct result comparisons should only be made within the same method. THYROXINE,FREEon 10-10-2021 THYROXINE,FREE 1.01 ng/dL Normal 0.78 - 1.48 [facility] Comment on above: Result Comment: Thyr oxine Free testing is performed using different testing methodology at [facility] than at other [facility]. Direct result comparisons should only be made within the same method. Performed By: #### T 4FRE #### [facility] [address] [place] [address] TSH WITH REFLEX TO FREE T4 I F ABNORMALon 10-10-2021 TSH Qn 5.81 m[IU]/L High 0.44 - 3.98 [facility] Comment on above: Result Comment: TSH testing is performed using different testing methodology at [facility] than at other [facility]. Direct result comparisons should only be made within the same method. Performed By: #### T HYDS ####[id number] [place] [address] Cult, Urineon 02-17-2021 Bacteria identified Cx Nom (U) PATIENT: ROSENDO ROTH LOCATION: [facility] BILL#: [id number] : 89 AGE: SEX: F ORDERED BY: JOHN BARRETT SOURCE: URINE Abnormal [facility] Work Phone: IO UA (automated w/o microsc opy)on 02-17-2021 Protein (U) [Mass/Vol] Negative [facility] Work Phone: IO UA (automated w/o microscopy) (+)small - 15 [facility] Work Phone: IO UA (automated w/o microscopy) Negative [facility] Work Phone: IO UA (automated w/o microscopy) Normal (0.2-1.0 mg/dl) [facility] Work Phone: IO UA (automated w/o microscopy) 6.0 1 [facility] Work Phone: IO UA (automated w/o microscopy) 1.005 1 [facility] Work Phone: IO UA (automated w/o microscopy) Hazy [facility] Work Phone: IO UA (automated w/o microscopy) Yellow [facility] Work Phone: LMPon 02-17-2021 Last menstrual period start date [id number] [facility] Work Phone: IO Rapid Strepon 07-01-2018 S. pyogenes Ag Ql (Throat) Negative Negative [facility] Work Phone: IO Vision Screeningon 2018 IO Vision Screening 20/20-1 [facility] Work Phone: IO Vision Screening 20/20 [facility] Work Phone: Vital Signs Date Time Vital Sign Value Performing Clinician Facility 11-28-2024 11:02-0400 Body height 172.7 cm Joseph Candelaria MD Work Phone: [facility] 11-28-2024 11:02-0400 Body mass index (BMI) [Ratio] 23.39 kg/m2 Joseph Candelaria MD Work Phone: [facility] 11-28-2024 11:02-0400 Body weight 69.76 kg Joseph Candelaria MD Work Phone: [facility] 11-28-2024 11:02-0400 Diastolic blood pressure 59 mm[Hg] Joseph Candelaria MD Work Phone: [facility] 11-28-2024 11:02-0400 Heart rate 74 /min Joseph Candelaria MD Work Phone: [facility] 11-28-2024 11:02-0400 SaO2% (BldA) [Mass fraction] 96 % Joseph Candelaria MD Work Phone: [facility] 11-28-2024 11:02-0400 Systolic blood pressure 94 mm[Hg] Joseph Candelaria MD Work Phone: [facility] 11-07-2024 14:31-0400 Body mass index (BMI) [Ratio] 24.04 kg/m2 Arlene Forkland CLIENT CONSULTANT.COSMETICIAN Work Phone: [facility] 11-07-2024 14:31-0400 Body weight 70.67 kg Arlene Samy CLIENT CONSULTANT.COSMETICIAN Work Phone: [facility] 11-07-2024 14:31-0400 Diastolic blood pressure 68 mm[Hg] Arlene Forkland CLIENT CONSULTANT.COSMETICIAN Work Phone: [facility] 11-07-2024 14:31-0400 Systolic blood pressure 120 mm[Hg] Arlene Samy CLIENT CONSULTANT.COSMETICIAN Work Phone: [facility] 05-22-2024 08:56-0400 Body mass index (BMI) [Ratio] 23.61 kg/m2 David Melton MD Work Phone: [facility] 05-22-2024 08:56-0400 Body weight 69.4 kg David Melton MD Work Phone: [facility] 05-22-2024 08:56-0400 Diastolic blood pressure 62 mm[Hg] David Melton MD Work Phone: [facility] 05-22-2024 08:56-0400 Systolic blood pressure 114 mm[Hg] David Melton MD Work Phone: [facility] 04-17-2024 13:43-0500 Body mass index (BMI) [Ratio] 23.61 kg/m2 Darek Pichardo MD Work Phone: [facility] 04-17-2024 13:43-0500 Body weight 69.4 kg Darek Pichardo MD Work Phone: [facility] 04-17-2024 13:43-0500 Diastolic blood pressure 77 mm[Hg] Darek Pichardo MD Work Phone: [facility] 04-17-2024 13:43-0500 Systolic blood pressure 117 mm[Hg] Darek Pichardo MD Work Phone: [facility] 04-11-2024 14:28-0500 Body mass index (BMI) [Ratio] 24.75 kg/m2 Yajaira Serrano MD Work Phone: [facility] 04-11-2024 14:28-0500 Body weight 72.76 kg Yajaira Serrano MD Work Phone: [facility] 04-11-2024 14:28-0500 Diastolic blood pressure 60 mm[Hg] Yajaira Serrano MD Work Phone: [facility] 04-11-2024 14:28-0500 Systolic blood pressure 100 mm[Hg] Yajaira Serrano MD Work Phone: [facility] 03-17-2024 10:33-0500 Body mass index (BMI) [Ratio] 23.81 kg/m2 Cordell Landa MD Work Phone: [facility] 03-17-2024 10:33-0500 Body weight 70 kg Cordell Landa MD Work Phone: [facility] 03-17-2024 10:33-0500 Diastolic blood pressure 58 mm[Hg] Cordell Landa MD Work Phone: [facility] 03-17-2024 10:33-0500 Heart rate 83 /min Cordell Landa MD Work Phone: [facility] 03-17-2024 10:33-0500 Respiratory rate 18 /min Cordell Landa MD Work Phone: [facility] 03-17-2024 10:33-0500 SaO2% (BldA) [Mass fraction] 99 % Cordell Landa MD Work Phone: [facility] 03-17-2024 10:33-0500 Systolic blood pressure 96 mm[Hg] Crodell Landa MD Work Phone: [facility] 03-14-2024 10:53-0500 Body mass index (BMI) [Ratio] 23.46 kg/m2 Jameel Gill MD Work Phone: [facility] 03-14-2024 10:53-0500 Body weight 68.95 kg Jameel Gill MD Work Phone: [facility] 03-14-2024 10:53-0500 Diastolic blood pressure 60 mm[Hg] Jameel Gill MD Work Phone: [facility] 03-14-2024 10:53-0500 Systolic blood pressure 100 mm[Hg] Jameel Gill MD Work Phone: [facility] 02-15-2024 11:03-0500 Body mass index (BMI) [Ratio] 22.68 kg/m2 Eliana Simpson CLIENT CONSULTANT.CNM Work Phone: [facility] 02-15-2024 11:03-0500 Body weight 66.68 kg Eliana Simpson CLIENT CONSULTANT.CNM Work Phone: [facility] 02-15-2024 11:03-0500 Diastolic blood pressure 60 mm[Hg] Eliana Simpson CLIENT CONSULTANT.CNM Work Phone: [facility] 02-15-2024 11:03-0500 Systolic blood pressure 104 mm[Hg] Eliana Simpson CLIENT CONSULTANT.CNM Work Phone: [facility] 01-07-2024 13:35-0500 Body mass index (BMI) [Ratio] 21.6 kg/m2 Priscila Haury CLIENT CONSULTANT.COSMETICIAN Work Phone: [facility] 01-07-2024 13:35-0500 Body weight 63.5 kg Priscila Castro CLIENT CONSULTANT.COSMETICIAN Work Phone: [facility] 01-07-2024 13:35-0500 Diastolic blood pressure 60 mm[Hg] Priscila Castro CLIENT CONSULTANT.COSMETICIAN Work Phone: [facility] 01-07-2024 13:35-0500 Systolic blood pressure 100 mm[Hg] Priscila Castro CLIENT CONSULTANT.COSMETICIAN Work Phone: [facility] 12-10-2023 13:33-0400 Body mass index (BMI) [Ratio] 22.22 kg/m2 Yajaira Serrano MD Work Phone: [facility] 12-10-2023 13:33-0400 Body weight 65.32 kg Yajaira Serrano MD Work Phone: [facility] 12-10-2023 13:33-0400 Diastolic blood pressure 62 mm[Hg] Yajaira Serrano MD Work Phone: [facility] 12-10-2023 13:33-0400 Systolic blood pressure 100 mm[Hg] Yajaira Serrano MD Work Phone: [facility] 11-29-2023 10:01-0400 Body height 172.7 cm Rosette Bridenthal CLIENT CONSULTANT - COSMETICIAN Work Phone: [facility] [employer] 11-29-2023 10:01-0400 Body mass index (BMI) [Ratio] 22.11 kg/m2 Rosette Bridenthal CLIENT CONSULTANT - COSMETICIAN Work Phone: [facility] [employer] 11-29-2023 10:01-0400 Body temperature 98.49 [degF] Rosette Bridenthal CLIENT CONSULTANT - COSMETICIAN Work Phone: [facility] [employer] 11-29-2023 10:01-0400 Body weight 65.95 kg Rosette Bridenthal CLIENT CONSULTANT - COSMETICIAN Work Phone: [facility] [employer] 11-29-2023 10:01-0400 Diastolic blood pressure 65 mm[Hg] Rosette Bridenthal CLIENT CONSULTANT - COSMETICIAN Work Phone: [facility] [employer] 11-29-2023 10:01-0400 Heart rate 72 /min Rosette Bridenthal CLIENT CONSULTANT - COSMETICIAN Work Phone: [facility] [employer] 11-29-2023 10:01-0400 Respiratory rate 20 /min Rosette Bridenthal CLIENT CONSULTANT - COSMETICIAN Work Phone: [facility] [employer] 11-29-2023 10:01-0400 SaO2% (BldA) [Mass fraction] 98 % Rosette Bridenthal CLIENT CONSULTANT - COSMETICIAN Work Phone: [facility] [employer] 11-29-2023 10:01-0400 Systolic blood pressure 98 mm[Hg] Rosette Bridenthal CLIENT CONSULTANT - COSMETICIAN Work Phone: [facility] [employer] 11-12-2023 08:13-0400 Body height 171.5 cm Arlene Samy CLIENT CONSULTANT.COSMETICIAN Work Phone: [facility] 11-12-2023 08:13-0400 Body mass index (BMI) [Ratio] 22.07 kg/m2 Arlene Forkland CLIENT CONSULTANT.COSMETICIAN Work Phone: [facility] 11-12-2023 08:13-0400 Body weight 64.86 kg Arlene Forkland CLIENT CONSULTANT.COSMETICIAN Work Phone: [facility] 11-12-2023 08:13-0400 Diastolic blood pressure 62 mm[Hg] Arlene Samy CLIENT CONSULTANT.COSMETICIAN Work Phone: [facility] 11-12-2023 08:13-0400 Systolic blood pressure 108 mm[Hg] Arlene Samy CLIENT CONSULTANT.COSMETICIAN Work Phone: [facility] 03-11-2023 07:35-0500 Body height 172.7 cm Bridget Abdul DO Work Phone: [facility] 03-11-2023 07:35-0500 Body mass index (BMI) [Ratio] 23.72 kg/m2 Bridget Abdul DO Work Phone: [facility] 03-11-2023 07:35-0500 Body temperature 98.91 [degF] Bridget Abdul DO Work Phone: [facility] 03-11-2023 07:35-0500 Body weight 70.76 kg Bridget Abdul DO Work Phone: [facility] 03-11-2023 07:35-0500 Diastolic blood pressure 64 mm[Hg] Bridget Abdul DO Work Phone: [facility] 03-11-2023 07:35-0500 Heart rate 65 /min Bridget Abdul DO Work Phone: [facility] 03-11-2023 07:35-0500 Systolic blood pressure 110 mm[Hg] Bridget Abdul DO Work Phone: [facility] 02-04-2023 11:27-0500 Body height 162.6 cm Namita Dye MD MPH Work Phone: [facility] 02-04-2023 11:27-0500 Body mass index (BMI) [Ratio] 22.13 kg/m2 Namita Dye MD MPH Work Phone: [facility] 02-04-2023 11:27-0500 Body weight 58.51 kg Namita Dye MD MPH Work Phone: [facility] 02-04-2023 11:27-0500 Diastolic blood pressure 71 mm[Hg] Namita Dye MD MPH Work Phone: [facility] 02-04-2023 11:27-0500 Heart rate 65 /min Namita Dye MD MPH Work Phone: [facility] 02-04-2023 11:27-0500 Respiratory rate 18 /min Namita Dye MD MPH Work Phone: [facility] 02-04-2023 11:27-0500 Systolic blood pressure 113 mm[Hg] Namita Dye MD MPH Work Phone: [facility] 10-01-2022 13:31-0400 Body mass index (BMI) [Ratio] 23.57 kg/m2 Bridget Abdul Work Phone: [facility] Work Phone: 10-01-2022 13:31-0400 Body surface area Derived from formula 1.83 m2 Bridget Abdul Work Phone: RE[facility]NMJMA[facility]Kxpnvzuth Work Phone: 10-01-2022 13:31-0400 Body weight 70.31 kg Bridget Abdul Work Phone: SA[facility]VAIYU-Telqxpwax Work Phone: 10-01-2022 13:31-0400 Diastolic blood pressure 70 mm[Hg] Bridget Abdul Work Phone: OO[facility]VKVOG-Pifmbwhys Work Phone: 10-01-2022 13:31-0400 Heart rate 64 /min Bridget Abdul Work Phone: MT[facility]FNBYC-Uygsecveh Work Phone: 10-01-2022 13:31-0400 Respiratory rate 16 /min Bridget Abdul Work Phone: VX-GWERH-Oweyicalh Work Phone: 10-01-2022 13:31-0400 SaO2% (BldA) [Mass fraction] 97 % Bridget Abdul Work Phone: JF-QPAHP-Cinzfnyos Work Phone: 10-01-2022 13:31-0400 Systolic blood pressure 114 mm[Hg] Bridget Abdul Work Phone: SD-HZHNM-Jwwbvmnan Work Phone: 09-23-2022 15:45-0400 10 1 Bridget Abdul Work Phone: [facility] Work Phone: Comment on above: [employer] 09-21-2022 10:00-0400 Body height 172.72 cm Bridget Abdul Work Phone: [facility] DO Work Phone: 09-21-2022 10:00-0400 Body mass index (BMI) [Ratio] 23.61 kg/m2 Bridget Abdul Work Phone: [facility] DO Work Phone: 09-21-2022 10:00-0400 Body surface area Derived from formula 1.84 m2 Bridget Abdul Work Phone: [facility] DO Work Phone: 09-21-2022 10:00-0400 Body weight 70.42 kg Bridget Abdul Work Phone: [facility] DO Work Phone: 09-21-2022 10:00-0400 Diastolic blood pressure 62 mm[Hg] Bridget Abdul Work Phone: [facility] DO Work Phone: 09-21-2022 10:00-0400 Systolic blood pressure 112 mm[Hg] Bridget Abdul Work Phone: [facility] DO Work Phone: 09-21-2022 10:00-0400 0 1 Bridget Abdul Work Phone: [facility] DO Work Phone: Comment on above: [facility] 09-14-2022 13:44-0400 9 1 Bridget Abdul Work Phone: [facility] Work Phone: Comment on above: [employer] 09-10-2022 10:18-0400 Body mass index (BMI) [Ratio] 23.26 kg/m2 Bridget Abdul Work Phone: LT-KMNIM-Cnnirgo 2nd Fl Work Phone: 09-10-2022 10:18-0400 Body surface area Derived from formula 1.82 m2 Bridget Abdul Work Phone: VC-NZLFD-Eplbmgb 2nd Fl Work Phone: 09-10-2022 10:18-0400 Body weight 69.4 kg Bridget Abdul Work Phone: UI-EUCXN-Nhgvjcs 2nd Fl Work Phone: 09-10-2022 10:18-0400 Diastolic blood pressure 72 mm[Hg] Bridget Abdlu Work Phone: ZG-NEDLY-Jcyaycj 2nd Fl Work Phone: 09-10-2022 10:18-0400 Heart rate 67 /min Bridget Abdul Work Phone: RU-HKJPN-Ydsrsex 2nd Fl Work Phone: 09-10-2022 10:18-0400 Systolic blood pressure 104 mm[Hg] Bridget Abdul Work Phone: BU-FVJQP-Lywezqc 2nd Fl Work Phone: 09-10-2022 10:18-0400 0 1 Bridget Abdul Work Phone: MX-ACEIY-Jtxvryq 2nd Fl Work Phone: Comment on above: [facility] 09-08-2022 15:50-0400 9 1 Bridget Abdul Work Phone: [facility] Work Phone: Comment on above: [employer] 08-14-2022 10:08-0400 Body temperature 97.34 [degF] Bridget Abdul Other Phone: [facility] 08-14-2022 10:08-0400 Diastolic blood pressure 69 mm[Hg] Bridget Abdul Other Phone: [facility] 08-14-2022 10:08-0400 Heart rate 66 /min Bridget Abdul Other Phone: [facility] 08-14-2022 10:08-0400 Respiratory rate 18 /min Bridget Abdul Other Phone: [facility] 08-14-2022 10:08-0400 SaO2% (BldA) [Mass fraction] 97 % Bridget Abdul Other Phone: [facility] 08-14-2022 10:08-0400 Systolic blood pressure 109 mm[Hg] Bridget Abdul Other Phone: [facility] 08-10-2022 10:34-0400 Body height 172.72 cm Bridget Abdul Work Phone: QW-CUETM-Muwckbz 2nd Fl M[facility] Work Phone: 08-10-2022 10:34-0400 Body mass index (BMI) [Ratio] 25.87 kg/m2 Bridget Abdul Work Phone: ZY-JTYKM-Agfgigl 2nd Fl [facility] Work Phone: 08-10-2022 10:34-0400 Body surface area Derived from formula 1.91 m2 Bridget Abdul Work Phone: QD-NSVSD-Ljlbcwa 2nd Fl [facility] Work Phone: 08-10-2022 10:34-0400 Body weight 77.17 kg Bridget Abdul Work Phone: WR-LGVSI-Djuycbo 2nd Fl [facility] Work Phone: 08-10-2022 10:34-0400 Diastolic blood pressure 62 mm[Hg] Bridget Abdul Work Phone: LJ-SRPZN-Epivbxf 2nd Fl [facility] Work Phone: 08-10-2022 10:34-0400 Systolic blood pressure 108 mm[Hg] Bridget Abdul Work Phone: TE-ORYKO-Xoxsnfx 2nd Fl [facility] Work Phone: 08-10-2022 10:34-0400 0 1 Bridget Abdul Work Phone: QF-ROJPM-Mzisnnq 2nd Fl [facility] Work Phone: Comment on above: [facility] 08-09-2022 08:20-0400 Body height 172.72 cm [facility] 08-09-2022 08:20-0400 Body mass index (BMI) [Ratio] 25.5 kg/m2 [facility] 08-09-2022 08:20-0400 Body weight 76.2 kg [facility] 08-09-2022 07:46-0400 SaO2% (BldA) [Mass fraction] 82 % [facility] 08-09-2022 07:44-0400 Diastolic blood pressure 74 mm[Hg] [facility] 08-09-2022 07:44-0400 Heart rate 68 /min [facility] 08-09-2022 07:44-0400 Systolic blood pressure 117 mm[Hg] [facility] 07-31-2022 10:11-0400 Body mass index (BMI) [Ratio] 25.38 kg/m2 Bridget Abdul Work Phone: QN-XKIHZ-Metdqmq 2nd Fl [facility] Work Phone: 07-31-2022 10:11-0400 Body surface area Derived from formula 1.89 m2 Bridget Abdul Work Phone: PF-TSYOA-Ajneclq 2nd Fl [facility] Work Phone: 07-31-2022 10:11-0400 Body weight 75.71 kg Bridget Moodyarmida Work Phone: NT-LIKIY-Kvshezn 2nd Fl [facility] Work Phone: 07-31-2022 10:11-0400 Diastolic blood pressure 68 mm[Hg] Bridget Abdul Work Phone: AR-LDCHU-Kzgzmiy 2nd Fl [facility] Work Phone: 07-31-2022 10:11-0400 Heart rate 74 /min Bridget Abdul Work Phone: JZ-MWBFP-Snqcert 2nd Fl [facility] Work Phone: 07-31-2022 10:11-0400 Systolic blood pressure 114 mm[Hg] Bridget Abdul Work Phone: ZW-CQNUN-Qklywbm 2nd Fl [facility] Work Phone: 07-31-2022 10:11-0400 0 1 Bridget Abdul Work Phone: TN-MZUHF-Qtzvknl 2nd Fl [facility] Work Phone: Comment on above: [facility] 07-24-2022 11:08-0400 Body height 172.72 cm Melissa Fang MD Work Phone: [facility] DO Work Phone: 07-24-2022 11:08-0400 Body mass index (BMI) [Ratio] 25.24 kg/m2 Melissa Fang MD Work Phone: [facility] DO Work Phone: 07-24-2022 11:08-0400 Body surface area Derived from formula 1.89 m2 Melissa Fang MD Work Phone: [facility] DO Work Phone: 07-24-2022 11:08-0400 Body weight 75.3 kg Melissa Fang MD Work Phone: [facility] DO Work Phone: 07-24-2022 11:08-0400 Diastolic blood pressure 70 mm[Hg] Melissa Fang MD Work Phone: [facility] DO Work Phone: 07-24-2022 11:08-0400 Systolic blood pressure 118 mm[Hg] Melissa Fang MD Work Phone: [facility] DO Work Phone: 07-08-2022 11:11-0400 Body height 172.72 cm Melissa Fang MD Work Phone: [facility] DO Work Phone: 07-08-2022 11:11-0400 Body mass index (BMI) [Ratio] 24.94 kg/m2 Melissa Fang MD Work Phone: [facility] DO Work Phone: 07-08-2022 11:11-0400 Body surface area Derived from formula 1.88 m2 Melissa Fang MD Work Phone: [facility] DO Work Phone: 07-08-2022 11:11-0400 Body weight 74.39 kg Melissa Fang MD Work Phone: [facility] DO Work Phone: 07-08-2022 11:11-0400 Diastolic blood pressure 70 mm[Hg] Melissa Fang MD Work Phone: [facility] DO Work Phone: 07-08-2022 11:11-0400 Systolic blood pressure 110 mm[Hg] Melissa Fang MD Work Phone: [facility] DO Work Phone: 07-08-2022 11:11-0400 0 1 Melissa Fang MD Work Phone: [facility] DO Work Phone: Comment on above: [facility] 06-26-2022 15:31-0400 Body height 172.72 cm Melissa Fang MD Work Phone: [facility] DO Work Phone: 06-26-2022 15:31-0400 Body mass index (BMI) [Ratio] 25.24 kg/m2 Melissa Fang MD Work Phone: [facility] DO Work Phone: 06-26-2022 15:31-0400 Body surface area Derived from formula 1.89 m2 Melissa Fang MD Work Phone: [facility] DO Work Phone: 06-26-2022 15:31-0400 Body weight 75.3 kg Melissa Fang MD Work Phone: [facility] DO Work Phone: 06-26-2022 15:31-0400 Diastolic blood pressure 62 mm[Hg] Melissa Fang MD Work Phone: [facility] DO Work Phone: 06-26-2022 15:31-0400 Systolic blood pressure 106 mm[Hg] Melissa Fang MD Work Phone: [facility] DO Work Phone: 06-26-2022 15:31-0400 0 1 Melissa Fang MD Work Phone: [facility] DO Work Phone: Comment on above: [facility] 2022 14:59-0400 Body height 172.72 cm Melissa Fang MD Work Phone: [facility] DO Work Phone: 2022 14:59-0400 Body mass index (BMI) [Ratio] 24.78 kg/m2 Melissa Fang MD Work Phone: [facility] DO Work Phone: 2022 14:59-0400 Body surface area Derived from formula 1.87 m2 Melissa Fang MD Work Phone: [facility] DO Work Phone: 2022 14:59-0400 Body weight 73.94 kg Melissa Fang MD Work Phone: [facility] DO Work Phone: 2022 14:59-0400 Diastolic blood pressure 60 mm[Hg] Melissa Fang MD Work Phone: [facility] DO Work Phone: 2022 14:59-0400 Systolic blood pressure 118 mm[Hg] Melissa Fang MD Work Phone: [facility] DO Work Phone: 05-26-2022 15:26-0400 Body height 172.72 cm Melissa Fang MD Work Phone: [facility] DO Work Phone: 05-26-2022 15:26-0400 Body mass index (BMI) [Ratio] 24.18 kg/m2 Melissa Fang MD Work Phone: [facility] DO Work Phone: 05-26-2022 15:26-0400 Body surface area Derived from formula 1.85 m2 Melissa Fang MD Work Phone: [facility] DO Work Phone: 05-26-2022 15:26-0400 Body weight 72.12 kg Melissa Fang MD Work Phone: [facility] DO Work Phone: 05-26-2022 15:26-0400 Diastolic blood pressure 58 mm[Hg] Melissa Fang MD Work Phone: [facility] DO Work Phone: 05-26-2022 15:26-0400 Systolic blood pressure 116 mm[Hg] Melissa Fang MD Work Phone: [facility] DO Work Phone: 04-28-2022 14:50-0500 Body height 172.72 cm Melissa Fang MD Work Phone: [facility] DO Work Phone: 04-28-2022 14:50-0500 Body mass index (BMI) [Ratio] 24.02 kg/m2 Melissa Fang MD Work Phone: [facility] DO Work Phone: 04-28-2022 14:50-0500 Body surface area Derived from formula 1.85 m2 Melissa Fang MD Work Phone: [facility] DO Work Phone: 04-28-2022 14:50-0500 Body weight 71.67 kg Melissa Fang MD Work Phone: [facility] DO Work Phone: 04-28-2022 14:50-0500 Diastolic blood pressure 78 mm[Hg] Melissa Fang MD Work Phone: [facility] DO Work Phone: 04-28-2022 14:50-0500 Systolic blood pressure 110 mm[Hg] Melissa Fang MD Work Phone: [facility] DO Work Phone: 03-31-2022 15:32-0500 Body height 172.72 cm Melissa Fang MD Work Phone: [facility] DO Work Phone: 03-31-2022 15:32-0500 Body mass index (BMI) [Ratio] 23.11 kg/m2 Melissa Fang MD Work Phone: [facility] DO Work Phone: 03-31-2022 15:32-0500 Body surface area Derived from formula 1.82 m2 Melissa Fang MD Work Phone: [facility] DO Work Phone: 03-31-2022 15:32-0500 Body weight 68.95 kg Melissa Fang MD Work Phone: [facility] DO Work Phone: 03-31-2022 15:32-0500 Diastolic blood pressure 60 mm[Hg] Melissa Fang MD Work Phone: [facility] DO Work Phone: 03-31-2022 15:32-0500 Systolic blood pressure 108 mm[Hg] Melissa Fang MD Work Phone: [facility] DO Work Phone: 03-31-2022 15:32-0500 0 1 Melissa Fang MD Work Phone: [facility] DO Work Phone: Comment on above: [facility] 01-23-2022 15:17-0500 Body height 172.72 cm Melissa Fang MD Work Phone: [facility] DO Work Phone: 01-23-2022 15:17-0500 Body mass index (BMI) [Ratio] 22.2 kg/m2 Melissa Fang MD Work Phone: [facility] DO Work Phone: 01-23-2022 15:17-0500 Body surface area Derived from formula 1.79 m2 Melissa Fang MD Work Phone: [facility] DO Work Phone: 01-23-2022 15:17-0500 Body weight 66.23 kg Melissa Fang MD Work Phone: [facility] DO Work Phone: 01-23-2022 15:17-0500 Diastolic blood pressure 62 mm[Hg] Melissa Fang MD Work Phone: [facility] DO Work Phone: 01-23-2022 15:17-0500 Systolic blood pressure 110 mm[Hg] Melissa Fang MD Work Phone: [facility] DO Work Phone: 01-14-2022 08:30-0500 Body height 172.72 cm Melissa Fang MD Work Phone: [facility] DO Work Phone: 01-14-2022 08:30-0500 Body mass index (BMI) [Ratio] 22.28 kg/m2 Melissa Fang MD Work Phone: [facility] DO Work Phone: 01-14-2022 08:30-0500 Body surface area Derived from formula 1.79 m2 Melissa Fang MD Work Phone: [facility] DO Work Phone: 01-14-2022 08:30-0500 Body temperature 98.5 [degF] Melissa Fang MD Work Phone: [facility] DO Work Phone: 01-14-2022 08:30-0500 Body weight 66.45 kg Melissa Fang MD Work Phone: [facility] DO Work Phone: 01-14-2022 08:30-0500 Diastolic blood pressure 60 mm[Hg] Melissa Fang MD Work Phone: [facility] DO Work Phone: 01-14-2022 08:30-0500 Heart rate 72 /min Melissa Fang MD Work Phone: [facility] DO Work Phone: 01-14-2022 08:30-0500 SaO2% (BldA) [Mass fraction] 98 % Melissa Fang MD Work Phone: [facility] DO Work Phone: 01-14-2022 08:30-0500 Systolic blood pressure 112 mm[Hg] Melissa Fang MD Work Phone: [facility] DO Work Phone: 02-17-2021 12:25-0500 Body height 172.72 cm John Barrett MD Work Phone: [facility] Work Phone: 02-17-2021 12:25-0500 Body mass index (BMI) [Ratio] 21.29 kg/m2 John Barrett MD Work Phone: [facility] Work Phone: 02-17-2021 12:25-0500 Body surface area Derived from formula 1.76 m2 John Barrett MD Work Phone: [facility] Work Phone: 02-17-2021 12:25-0500 Body temperature 97.8 [degF] John Barrett MD Work Phone: [facility] Work Phone: 02-17-2021 12:25-0500 Body weight 63.5 kg John Barrett MD Work Phone: [facility] Work Phone: 02-17-2021 12:25-0500 Diastolic blood pressure 84 mm[Hg] John Barrett MD Work Phone: [facility] Work Phone: 02-17-2021 12:25-0500 Heart rate 57 /min John Barrett MD Work Phone: [facility] Work Phone: 02-17-2021 12:25-0500 Respiratory rate 15 /min John Barrett MD Work Phone: [facility] Work Phone: 02-17-2021 12:25-0500 SaO2% (BldA) [Mass fraction] 98 % John Barrett MD Work Phone: [facility] Work Phone: 02-17-2021 12:25-0500 Systolic blood pressure 125 mm[Hg] John Barrett MD Work Phone: [facility] Work Phone: 02-17-2021 12:25-0500 3 1 John Barrett MD Work Phone: [facility] Work Phone: Comment on above: [facility] 07-01-2018 11:35-0400 Body Temperature 98.5 [degF] John Barrett [facility] Work Phone: 07-01-2018 11:35-0400 BP Diastolic 68 mm[Hg] John Barrett [facility] Work Phone: 07-01-2018 11:35-0400 BP Systolic 116 mm[Hg] John Barrett [facility] Work Phone: 07-01-2018 11:35-0400 Pulse (Heart Rate) 72 /min John Barrett [facility] Work Phone: 07-01-2018 11:35-0400 Pulse Oximetry 97 % John Barrett [facility] Work Phone: 07-01-2018 11:35-0400 Respiratory Rate 16 /min John Barrett [facility] Work Phone: 07-01-2018 11:35-0400 1.125 1 John Barrett [facility] Work Phone: Comment on above: Pain Scale 06-28-2018 19:04-0400 Body Temperature 98.1 [degF] Mariaelena Lr [facility] Work Phone: Comment on above: Method: Oral 06-28-2018 19:04-0400 BP Diastolic 69 mm[Hg] Mariaelena Lr [facility] Work Phone: 06-28-2018 19:04-0400 BP Systolic 103 mm[Hg] Mariaelena Lr [facility] Work Phone: 06-28-2018 19:04-0400 Pulse (Heart Rate) 79 /min Mariaelena Lr [facility] Work Phone: 06-28-2018 19:04-0400 Pulse Oximetry 97 % Mariaelena Lr [facility] Work Phone: Comment on above: Source: RA 06-28-2018 19:04-0400 Respiratory Rate 16 /min Mariaelena Lr [facility] Work Phone: 06-28-2018 19:04-0400 1 1 Mariaelena Lr [facility] Work Phone: Comment on above: Pain Scale Encounters Encounter Date Encounter Type Care Provider Facility Start: 01-01-2025 End: 01-01-2025 ambulatory JOSEPH CANDELARIA [facility] Start: 11-29-2024 End: 11-29-2024 Follow-up encounter Joseph Candelaria MD Work Phone: [facility] Comment on above: TSH Start: 11-28-2024 End: 11-28-2024 Patient encounter procedure Joseph Candelaria MD Work Phone: [facility] Work Phone: Start: 11-28-2024 End: 11-28-2024 Periodic preventive med est patient 18-39 yrs Joseph Candelaria MD Work Phone: [facility] Comment on above: Annual physical exam (Primary Dx); Acquired hypothyroidism; Anxiety and depression; Screening for lipid disorders; Screening for diabetes mellitus; Influenza vaccine refused Start: 11-28-2024 End: 11-28-2024 ambulatory JOSEPH CANDELARIA [facility] Start: 11-28-2024 End: 11-28-2024 Encounter for general adult medical examination without abnormal findings JOSEPH CANDELARIA [facility] Start: 11-07-2024 End: 11-07-2024 Patient encounter procedure Arlene Pablo APRN.COSMETICIAN Work Phone: OB/Gynecology Comment on above: Irregular intermenst rual bleeding (Primary Dx) Start: 11-07-2024 End: 11-07-2024 ambulatory SELF Facility:[facility] Start: 11-06-2024 End: 11-06-2024 ambulatory [facility] Start: 10-27-2024 End: 10-27-2024 ambulatory David Melton MD Work Phone: OB/Gynecology Comment on above: Bleeding during the middle of my control pack Start: 09-14-2024 End: 09-14-2024 Refill Rosette Bridenthal CLIENT CONSULTANT - COSMETICIAN [facility] Comment on above: Hypothyroidism, unsp ecified type Start: 07-15-2024 End: 07-18-2024 Refill Rosette Bridenthal CLIENT CONSULTANT - COSMETICIAN [facility] Phone: [facility] [facility] Comment on above: Hypothyroidism, unsp ecified type Start: 06-23-2024 End: 06-23-2024 ambulatory [facility] Start: 06-21-2024 End: 06-26-2024 Telephone encounter Rosette Bridenthal CLIENT CONSULTANT - COSMETICIAN Work Phone: [facility] Comment on above: Results; Lab Orders (TSH due beginning december) Start: 06-20-2024 End: 06-20-2024 ambulatory [facility] Start: 05-31-2024 End: 07-31-2024 Follow-up encounter David Melotn MD Work Phone: OB/Gynecology Start: 05-23-2024 End: 05-23-2024 ambulatory [facility] Start: 05-22-2024 End: 05-22-2024 ambulatory DAVID MELTON Facility:[facility] Start: 05-22-2024 End: 05-22-2024 Patient encounter procedure David Melton MD Work Phone: OB/Gynecology Comment on above: care and examination (Primary Dx); Screening for cervical cancer; Encounter for screening for human papillomavirus (HPV) Start: 04-23-2024 End: 04-26-2024 Nurse Triage Yoon Lyles RN [facility] Clinical Communication Comment on above: CHRISTOPHER (generalized anx iety disorder); Recurrent major depressive disorder, in full remission (HCC) Start: 04-22-2024 End: 04-24-2024 Orders Only Nilda Waters APRN.COSMETICIAN Work Phone: Pediatrics [facility] Comment on above: Need for observation and evaluation of for sepsis (Primary Dx) Ob Delivery Note Start: 04-22-2024 End: 04-22-2024 Evaluation and management of inpatient No Primary Care Physician Facility:[facility] Start: 04-17-2024 End: 04-17-2024 ambulatory [facility] Facility:[facility] Start: 04-17-2024 End: 04-17-2024 Patient encounter procedure Darek Pichardo MD Work Phone: OB/Gynecology Comment on above: High-risk in third trimester (Primary Dx); Hypothyroidism, unspecified type; Abnormal ultrasonic finding on screening of mother; 30 weeks gestation of Start: 04-13-2024 End: 06-13-2024 Follow-up encounter Priscila Castro APRN.COSMETICIAN Work Phone: OB/Gynecology Start: 04-11-2024 End: 04-11-2024 Patient encounter procedure Yajaira Serrano MD Work Phone: OB/Gynecology Comment on above: 29 weeks gestation o f (Primary Dx); Supervision of high risk in second trimester; Need for vaccination Start: 04-11-2024 End: 04-11-2024 ambulatory YAJAIRA SERRANO Facility:[facility] Start: 04-10-2024 End: 04-10-2024 Patient encounter procedure Us [facility] Director Ag Mfm Work Phone: [facility] [place] General Maternal [facility] Comment on above: Abnormal ultra sound (Primary Dx); Supervision of high risk in third trimester Start: 04-10-2024 End: 04-10-2024 ambulatory CORDELL LANDA Facility:[facility] Comment on above: Supervision of high risk in third trimester (Primary Dx) Start: 03-21-2024 End: 03-22-2024 [facility] Comment on above: Hypothyroidism, unsp ecified type Start: 03-17-2024 End: 03-17-2024 Patient encounter procedure Marcelo Cervantes MD Work Phone: Pediatric Surgery Comment on above: abnormality in antepartum , single or unspecified fetus (Primary Dx) Care Plan (Car e Coordination) Suspected anom mia, antepartum, single or unspecified fetus (Primary Dx) Start: 03-17-2024 End: 03-17-2024 ambulatory Esmer Crowley RN [facility] General Maternal Medicine Start: 03-14-2024 End: 03-14-2024 ambulatory JAMEEL GILL Facility:[facility] Start: 03-14-2024 End: 03-14-2024 Patient encounter procedure Jameel Gill MD Work Phone: OB/Gynecology Comment on above: Supervision of high risk in second trimester (Primary Dx); Screening for diabetes mellitus; 25 weeks gestation of Start: 03-02-2024 End: 03-02-2024 [facility] Start: 03-01-2024 End: 03-01-2024 ambulatory Kelsy Ochoa [facility] Work Phone: [facility] Comment on above: Maternal care for ot her (suspected) abnormality and damage, fetus 1 (Primary Dx) Start: 03-01-2024 End: 03-01-2024 Telemedicine consultation with patient Kelsy Ochoa [facility] Work Phone: [facility] Start: 02-29-2024 End: 02-29-2024 Patient encounter procedure Saulo Paniagua MD Work Phone: Pediatric Cardiology Start: 02-29-2024 End: 02-29-2024 ambulatory Saulo Paniagua MD Work Phone: Pediatric Cardiology Start: 02-22-2024 End: 02-22-2024 E-mail encounter from caregiver Esmer Crowley RN [facility] General Maternal Medicine Start: 02-22-2024 End: 02-22-2024 Patient encounter procedure Esmer Crowley RN [facility]aternal [facility] Comment on above: Directions Start: 02-22-2024 End: 02-22-2024 Telephone encounter Esmer Crowley RN [facility] on General Maternal Medicine Comment on above: Results Start: 02-21-2024 End: 02-21-2024 ambulatory [facility] Start: 02-18-2024 End: 02-18-2024 Refill Rosette Joe CLIENT CONSULTANT - COSMETICIAN Work Phone: [facility] Comment on above: Hypothyroidism, unsp ecified type Start: 02-17-2024 End: 02-17-2024 Telephone encounter Esmer Crowley RN [facility] on General Maternal Medicine Comment on above: Pastrycook'S Assistant - O ther ( Care) Start: 02-15-2024 End: 02-15-2024 ambulatory ELIANA SIMPSON Facility:[facility] Start: 02-15-2024 End: 02-15-2024 Patient encounter procedure Eliana Simpson CLIENT CONSULTANT.CNM Work Phone: OB/Gynecology Comment on above: 21 weeks gestation o f (Primary Dx); Supervision of high risk in second trimester; Hypothyroidism, unspecified type Encounter for anatomic survey (Primary Dx); Suspected anomaly, antepartum, single or unspecified fetus; 21 weeks gestation of ; Single umbilical artery Start: 02-14-2024 End: 02-14-2024 Refill Joseph Candelaria MD Work Phone: [facility] Comment on above: Hypothyroidism, unsp ecified type Start: 01-07-2024 End: 01-07-2024 ambulatory LASHAE RICHARD Facility:[facility] Start: 01-07-2024 End: 01-07-2024 Patient encounter procedure Priscila Castro APRN.COSMETICIAN Work Phone: OB/Gynecology Comment on above: Supervision of high risk in second trimester (Primary Dx); 16 weeks gestation of ; Third degree perineal laceration; Hypothyroidism, unspecified type; Nausea and vomiting during Start: 12-31-2023 End: 12-31-2023 Telephone encounter Josehp Candelaria MD Work Phone: [facility] Comment on above: Results Start: 12-13-2023 End: 12-13-2023 Telephone encounter Darek Pichardo MD Work Phone: OB/Gynecology Comment on above: Orders Start: 12-10-2023 End: 12-10-2023 ambulatory ARLENE SAMY Facility:[facility] Start: 12-10-2023 End: 12-10-2023 Patient encounter procedure Yajaira Serrano MD Work Phone: OB/Gynecology Comment on above: 11 weeks gestation o f (Primary Dx); Encounter for supervision of normal in multigravida in first trimester Start: 11-30-2023 End: 12-01-2023 Telephone encounter Rosette Joe CLIENT CONSULTANT - COSMETICIAN Work Phone: [facility] Comment on above: Results Start: 11-29-2023 End: 11-29-2023 Office outpatient new 45 minutes Rosette Joe CLIENT CONSULTANT - COSMETICIAN Work Phone: [facility] Comment on above: Hypothyroidism, unsp ecified type (Primary Dx); Less than 8 weeks gestation of ; Exercise-induced asthma; Anxiety and depression; Screening for cholesterol level Start: 11-12-2023 End: 11-12-2023 ambulatory ARLENE PABLO Facility:[facility] Start: 11-12-2023 End: 11-12-2023 Patient encounter procedure Arlene Samy CLIENT CONSULTANT.COSMETICIAN Work Phone: OB/Gynecology Comment on above: Encounter for superv ision of normal in multigravida in first trimester (Primary Dx); Hypothyroidism, unspecified type; Third degree perineal laceration; History of depression; 7 weeks gestation of Start: 11-05-2023 End: 11-11-2023 Telephone encounter Arlene Pablo APRN.COSMETICIAN Work Phone: OB/Gynecology Comment on above: Appointment Start: 10-26-2023 End: 10-26-2023 Telephone encounter Rosette Joe CLIENT CONSULTANT - COSMETICIAN Work Phone: [facility] Family Medicine Comment on above: New Patient Start: 03-11-2023 End: 03-11-2023 ambulatory [facility] Start: 03-11-2023 End: 03-11-2023 Encounter for general adult medical examination without abnormal findings [facility] Start: 03-10-2023 End: 03-10-2023 Periodic preventive med est patient 18-39 yrs Bridget Abdul DO Work Phone: [facility] Family Medicine Comment on above: Routine general medi lottie examination at a health care facility (Primary Dx); Subclinical hypothyroidism; Rash; Tinea Start: 03-10-2023 End: 03-10-2023 Patient encounter status Bridget Abdul DO Work Phone: [facility] Work Phone: Start: 03-10-2023 Encounter for genera l adult medical examination without abnormal findings [facility] Start: 02-04-2023 End: 02-04-2023 ambulatory NAMITA G [facility] Start: 02-04-2023 End: 02-04-2023 Office outpatient visit 15 minutes Namita Dye MD MPH Work Phone: [facility] Comment on above: Type 3a perineal lac eration (Primary Dx) Start: 10-01-[address] Namita Dye Facility:[id number] Start: 10-01-2022 Office outpatient vi sit 15 minutes Bridget Abdul Work Phone: [facility] Work Phone: Start: 09-28-2022 Telephone encounter Bridget corona Work Phone: -[facility] Work Phone: Start: 09-25-2022 Telephone encounter Bridget corona Work Phone: -[facility] Work Phone: Start: 09-23-2022 COUNSELING, Provider : JOHNNIE RAMIREZ NURSE, Status: Pen, Time: 3:00 PM Bridget Abdul Work Phone: [facility] [facility] DO Work Phone: Start: 09-23-2022 ambulatory MD MELISSA FANG Facility:[id number] Start: 09-22-2022 Chart Update Bridget mike Work Phone: [facility] DO Work Phone: Start: 09-21-2022 Patient encounter procedure Bridget Abdul Work Phone: [facility] DO Work Phone: Start: 09-21-2022 ambulatory MD MELISSA FANG Facility:[id number] Start: 09-16-2022 Telephone encounter Bridget corona Work Phone: -[facility] Work Phone: Start: 09-14-2022 ambulatory MD MELISSA FANG Facility:[id number] Start: 09-10-2022 ambulatory Namita Dye Facility: [id number] Start: 09-10-2022 Current tobacco non- user cad cap copd pv dm Bridget Abdul Work Phone: EE-MKROF-[facility] 2nd Fl Work Phone: Start: 09-10-2022 FUV, Provider: Namita Dye, Status: Pen, Time: 10:00 AM Bridget Abdul Work Phone: -[facility] Work Phone: Start: 09-09-2022 Telephone encounter Bridget corona Work Phone: -[facility] Work Phone: Start: 09-08-2022 ambulatory MD MELISSA HOFFMANNOWELL Facility:[id number] Start: 08-20-2022 AUDIT Bridget Uriosteguii o Work Phone: [facility] [facility] DO Work Phone: Start: 08-18-2022 [facility], Provider: Jesse Redd, Status: Pen, Time: 9:00 AM Bridget Abdul Work Phone: LT-IAUCA-Hqiottz 2nd Fl MFM Work Phone: Start: 08-17-2022 [facility], Provider: Alissa Lucio, Status: Pen, Time: 9:00 AM Bridget Abdul Work Phone: KV-AXZZP-Dvxsdwi 2nd Fl MFM Work Phone: Start: 08-16-2022 Telephone encounter Bridget corona Work Phone: TF-OJFOB-Fixulsl 2nd Fl MFM Work Phone: Start: 08-12-2022 End: 08-14-2022 Evaluation and management of inpatient Dr. Bridget Abdul Facility:[facility] Start: 08-12-2022 End: 08-14-2022 Evaluation and management of inpatient Ashlyn Grajeda [facility] [place]m [id number] Start: 08-10-2022 ambulatory MD MELISSA FANG Facility: Start: 08-09-2022 End: 08-09-2022 ambulatory [facility] Work Phone: Start: 08-09-2022 End: 08-09-2022 Patient encounter procedure [facility] Start: 07-31-2022 ambulatory MD MELISSA FANG Facility:[id number] Start: 07-29-2022 ULTRASDFUV, Provider : [facility]IA[facility] ROOM [facility], Status: Pen, Time: 3:30 PM Bridget Abdul Work Phone: [facility] [facility] DO Work Phone: Start: 07-29-2022 ambulatory Cindy Deal Facility:1 [id number] Start: 07-27-2022 Chart Update Bridget mike Work Phone: [facility] [facility] DO Work Phone: Start: 07-24-2022 AUDIT Melissa holliday MD Work Phone: [facility] DO Work Phone: Start: 07-24-2022 ambulatory MD MELISSA FANG Facility: Start: 07-08-2022 ambulatory MD MELISSA FANG Facility: Start: 06-26-2022 ambulatory MD MELISSA FANG Facility: Start: 06-26-2022 Office outpatient vi sit 15 minutes Melissa Fang MD Work Phone: [facility] DO Work Phone: Start: 2022 ambulatory MD MELISSA FANG Facility: Start: 2022 Office outpatient vi sit 15 minutes Melissa Fang MD Work Phone: [facility] DO Work Phone: Start: 05-27-2022 Chart Update Melissa holliday MD Work Phone: [facility] DO Work Phone: Start: 05-26-2022 Office outpatient vi sit 15 minutes Melissa Fang MD Work Phone: [facility] DO Work Phone: Start: 05-26-2022 ambulatory MD MELISSA FANG Facility: Start: 04-28-2022 ambulatory MD MELISSA FANG Facility: Start: 04-28-2022 Office outpatient vi sit 15 minutes Melissa Fang MD Work Phone: [facility] DO Work Phone: Start: 04-16-2022 Chart Update Susannah Jorge CLIENT CONSULTANT-COSMETICIAN Work Phone: [facility] [place] [address] Work Phone: Start: 04-13-2022 Chart Update Melissa holliday MD Work Phone: [facility] DO Work Phone: Start: 04-13-2022 ambulatory Ms. Caterina Solorio Facility:[id number] Start: 03-31-2022 ambulatory MD MELISSA FANG Facility:[id number] Start: 03-31-2022 Chart Update Melissa holliday MD Work Phone: [facility] DO Work Phone: Start: 03-30-2022 ambulatory MD MELISSA FANG Facility:[id number] Start: 03-02-2022 ambulatory MD MELISSA FANG Facility:[id number] Start: 12-19-2022 Chart Update Melissa holliday MD Work Phone: [facility] DO Work Phone: Start: 02-09-2022 ambulatory Markell Phillip Facility: [id number] Start: 01-23-2022 Office outpatient vi sit 15 minutes Melissa Fang MD Work Phone: [facility] DO Work Phone: Start: 01-23-2022 ambulatory MD MELISSA FANG Facility:[id number] Start: 01-14-2022 ambulatory Ms. Davalos Ad ams Dariuszmarga Facility:[id number] Start: 01-14-2022 FUV, Provider: Susannah Patel, Status: Pen, Time: 8:00 AM Melissa Fang MD Work Phone: [facility] DO Work Phone: Start: 01-12-2022 Chart Update Melissa holliday MD Work Phone: [facility] DO Work Phone: Start: 01-06-2022 Chart Update Melissa holliday MD Work Phone: [facility] DO Work Phone: Start: 01-05-2022 ambulatory MARIAA ALEXANDRE Facility[facility] Start: 01-02-2022 Chart Update Melissa holliday MD Work Phone: [facility] DO Work Phone: Start: 12-31-2021 Chart Update Melissa holliday MD Work Phone: [facility] DO Work Phone: Start: 12-31-2021 ambulatory MD MELISSA FANG Facility:[id number] Start: 12-26-2021 Office outpatient ne w 45 minutes Melissa Fang MD Work Phone: [facility] [facility] DO Work Phone: Start: 12-26-2021 ambulatory MD MELISSA FANG Facility:[facility] Start: 11-10-2021 Rx Renewal Susannah Patel CLIENT CONSULTANT-COSMETICIAN Work Phone: [facility] 6163 Work Phone: Start: 10-13-2021 Chart Update Susannah Patel CLIENT CONSULTANT-COSMETICIAN Work Phone: [facility] 6115 Work Phone: Start: 07-23-2021 AUDIT Susannah Patel CLIENT CONSULTANT-COSMETICIAN Work Phone: [facility] 6129 Work Phone: Start: 07-15-2021 Initial preventive medicine new pt age 18-39yrs Susannah Patel CLIENT CONSULTANT-COSMETICIAN Work Phone: [facility] 6143 Work Phone: Start: 02-20-2021 Chart Update Johnna Singletary CLIENT CONSULTANT-COSMETICIAN Work Phone: [facility] Work Phone: Start: 02-17-2021 Office outpatient vi sit 15 minutes John Barrett MD Work Phone: [facility] Work Phone: Start: 07-01-2018 Patient encounter procedure John Barrett [facility] Work Phone: Start: 06-28-2018 Patient encounter procedure Mariaelena Lr [facility] Work Phone: Start: 05-20-2017 Patient encounter procedure Mariaelena Adeline [facility] Work Phone: Patient encounter status Bridget herring Work Phone: ZT-HHMKS-Rryeaxl 2nd Fl MF Work Phone: Procedures Date Procedure Procedure Detail Performing Clinician Start: 11-28-2024 Thyrotropin [Units/v olume] in Serum or Plasma Joseph Candelaria MD Work Phone: Start: 06-20-2024 Thyrotropin [Units/v olume] in Serum or Plasma Rosette Joe CLIENT CONSULTANT - COSMETICIAN Work Phone: Start: 05-22-2024 Microscopic observat ion [Identifier] in Cervix by Cyto stain Rosette Joe CLIENT CONSULTANT - COSMETICIAN Work Phone: Start: 04-10-2024 Us preg uterus after 1st trimest 02/22 gestation Cordell Landa MD Work Phone: Start: 03-21-2024 Thyrotropin [Units/v olume] in Serum or Plasma Prachi D'Arabella Start: 03-17-2024 Us preg uterus after 1st trimest 02/22 gestation Arlen Duran MD Work Phone: Start: 02-15-2024 Us preg uterus after 1st trimest 02/22 gestation Priscila Castro CLIENT CONSULTANT.COSMETICIAN Work Phone: Start: 12-30-2023 Thyrotropin [Units/v olume] in Serum or Plasma Joseph Candelaria MD Work Phone: Start: 12-10-2023 Antibody screen ARLEN STEVENS Comment on above: Order Comment: Speci men Type: BLOOD SPECIMENOrdering Facility: [facility] Address: [address] [place] [address] Performed By: #### T SPN ####CC [facility] BLOOD BANKCLIA [id number] [place] [address] [place] Start: 11-29-2023 Assay of free thyroxine Rosette Joe CLIENT CONSULTANT - COSMETICIAN Work Phone: Start: 11-29-2023 Lipid panel Rosette ramírez CLIENT CONSULTANT - COSMETICIAN Work Phone: Start: 11-29-2023 End: 11-29-2023 Thyrotropin [Units/volume] in Serum or Plasma Rosette Joe CLIENT CONSULTANT - COSMETICIAN Work Phone: Start: 11-12-2023 Us uterus l imited 1/> fetuses Arlene Pablo CLIENT CONSULTANT.COSMETICIAN Work Phone: Start: 09-21-2022 Thyrotropin [Units/v olume] in Serum or Plasma Namita Dye MD MPH Work Phone: Start: 08-12-2022 Antibody screen MD YOBANI FANG Comment on above: Performed By: #### G CCHA #### [facility] [address] [place] [address] Start: 01-05-2022 Antibody screen MD YOBANI FANG Comment on above: Performed By: #### T +S ####[id number] [place] [address] Start: 12-26-2021 Microscopic observat ion [Identifier] in Cervix by Cyto stain Namita Dye MD MPH Work Phone: Start: 10-10-2021 Lipid 1996 panel - S lola or Plasma Namita Dye MD MPH Work Phone: Plan of Treatment Date Care Activity Detail Author Start: 06-11-2066 RSV Immunization for Adults (1 - 1-dose 75+ series) RSV Immunization for Adults (1 - 1-dose 75+ series) [facility] Start: 2051 RSV Immunization age d 60 or older (1 - 1-dose 60+ series) RSV Immunization aged 60 or older (1 - 1-dose 60+ series) [facility] Start: 2051 RSV Vaccine (1 - 1-d ose 60+ series) RSV Vaccine (1 - 1-dose 60+ series) [facility] Start: 06-11-2041 Zoster Vaccines (1 o f 2) Zoster Vaccines (1 of 2) [facility] Start: 04-11-2034 DTaP/Tdap/Td Vaccine s (3 - Td or Tdap) DTaP/Tdap/Td Vaccines (3 - Td or Tdap) [facility] Start: 04-11-2034 Urine microalbumin profile DTaP,Tdap,Td Vaccine (3 - Td or Tdap) [facility] Start: 05-26-2032 DTaP/Tdap/Td Vaccine s (2 - Td or Tdap) DTaP/Tdap/Td Vaccines (2 - Td or Tdap) [facility] Start: 05-26-2032 Urine microalbumin profile DTaP,Tdap,Td Vaccine (2 - Td or Tdap) [facility] Start: 05-22-2029 Screening for malign ant neoplasm of cervix Cervical Cancer Screening [facility] Start: 05-23-2027 Screening for malign ant neoplasm of cervix [facility] Start: 10-10-2026 Lipid panel Lipid Panel [facility] Start: 11-28-2025 Thyroid stimulating hormone measurement TSH Level [facility] Start: 08-21-2025 Influenza vaccination Influenza Vacc ine (#1) [facility] Comment on above: Postponed from 10/23 (Patient Refused) Start: 06-20-2025 Thyroid stimulating hormone measurement TSH Level [facility] Start: 06-06-2025 End: 06-06-2025 Patient encounter procedure 06/06/2025 9:30 AM EDT Office Visit [facility] [address] [place] [address] Joseph Candelaria MD [address] [place] [address] [facility] Start: 05-29-2025 Depression Monitoring Depression [facility] Start: 05-28-2025 End: 05-28-2025 Patient encounter procedure 05/28/2025 9:30 AM EDT Office Visit OB/Gynecology [address] [place] [id number] David Melton MD [address] [place] [address] annual OB/Gynecology Comment on above: annual Start: 03-21-2025 Thyroid stimulating hormone measurement TSH Level [facility] Start: 12-29-2024 Thyroid stimulating hormone measurement TSH Level [facility] Start: 12-26-2024 Screening for malign ant neoplasm of [facility] Start: 12-25-2024 End: 10-24-2025 Thyrotropin [Units/volume] in Serum or Plasma TSH Lab Routine Hypothyroidism, unspecified type Expected: 12/25/2024 (Approximate), Expires: 10/24/2025 [facility] Work Phone: Comment on above: Expected: 12/25/2024 (Approximate), Expires: 10/24/2025 Start: 11-28-2024 End: 11-28-2025 Comprehensive metabolic 1998 panel - Serum or Plasma Comprehensive metabolic panel Lab Routine Screening for diabetes mellitus Expected: 11/28/2024 (Approximate), Expires: 11/28/2025 [facility] Work Phone: Comment on above: Expected: 11/28/2024 (Approximate), Expires: 11/28/2025 Start: 11-28-2024 End: 11-28-2025 Lipid 1996 panel - Serum or Plasma Lipid panel Lab Routine Screening for lipid disorders Expected: 11/28/2024 (Approximate), Expires: 11/28/2025 [facility] Comment on above: Expected: 11/28/2024 (Approximate), Expires: 11/28/2025 Start: 11-28-2024 Thyroid stimulating hormone measurement TSH Level [facility] Start: 11-28-2024 End: 11-28-2024 Patient encounter procedure 11/28/2024 11:00 AM EDT Office Visit [place] [address] [facility] [place] [address] Joseph Candelaria [place] [address] [facility] Start: 11-02-2024 End: 11-02-2024 Patient encounter procedure 11/02/2024 11:00 AM EDT Office Visit OB/Gynecology [address] [place] [address] Lashae Petersen MD [address] [place] [place] [address] break through bleeding OB/Gynecology Comment on above: break through bleedi ng Start: 10-23-2024 Influenza vaccination [facility] Start: 08-21-2024 Influenza vaccination Influenza Vacc ine (#1) [facility] Comment on above: Postponed from 10/23 (Patient Refused) Start: 05-29-2024 Depression Monitoring Depression [facility] Start: 05-12-2024 End: 05-12-2024 Patient encounter procedure 05/12/2024 2:00 PM EDT Routine Office Visit [facility] Maternal Medicine [address] [place] [address] GROWTH, pt requests this day [facility] Maternal Medicine Comment on above: GROWTH, pt requests this day Start: 05-10-2024 End: 05-10-2024 ambulatory 05/10/2024 11:00 AM EDT [facility] [address] [place] [address] Nilda Waters APRN.COSMETICIAN [address] [place] [address] [facility] Comment on above: Care Start: 04-25-2024 End: 04-25-2024 Patient encounter procedure OB/Gynecology Comment on above: OB NST NST/OB Start: 04-24-2024 End: 04-24-2024 Clinical Support 04/24/2024 8:30 AM EST Clinical Support [facility] [address] [place] [address] [place] [address] [facility] Start: 04-11-2024 End: 04-11-2024 Patient encounter procedure 04/11/2024 2:30 PM EST Routine Office Visit OB/Gynecology [address] [place], [place] [id number] Yajaira Serrano MD [address] [place] [address] OB OB/Gynecology Comment on above: OB Start: 04-11-2024 End: 04-11-2024 ambulatory 04/11/2024 2:15 PM EST Results Only [place] [facility] [address] [place] [address] Glucose Test [facility] Comment on above: Glucose Test Start: 04-10-2024 End: 04-10-2024 Patient encounter procedure 04/10/2024 3:00 PM EST Routine Office Visit [facility] Maternal Medicine [address] [facility] [address] [place], [place] [id number] Growth [facility]aternal Medicine Comment on above: Growth Start: 04-10-2024 End: 04-10-2025 OBSTETRIC ULTRASOUND WHI OBSTETRIC ULTRASOUND WHI Anc Imaging Routine Supervision of high risk in third trimester Expected: 04/10/2024, Expires: 04/10/2025 [facility] Work Phone: Comment on above: Expected: 04/10/2024 , Expires: 04/10/2025 Start: 04-04-2024 End: 07-04-2024 ANEMIA REFLEX PANEL ANEMIA REFLEX PANEL Lab Routine 25 weeks gestation of Supervision of high risk in second trimester Expected: 04/04/2024 (Approximate), Expires: 07/04/2024 [facility] Comment on above: Expected: 04/04/2024 (Approximate), Expires: 07/04/2024 Start: 04-04-2024 End: 03-14-2025 GESTATIONAL GLUCOSE SCREEN, 1-HOUR, 50 GRAM, NON-FASTING GESTATIONAL GLUCOSE SCREEN, 1-HOUR, 50 GRAM, NON-FASTING Lab Routine Screening for diabetes mellitus Supervision of high risk in second trimester Expected: 04/04/2024 (Approximate), Expires: 03/14/2025 [facility] Work Phone: Comment on above: Expected: 04/04/2024 (Approximate), Expires: 03/14/2025 Start: 04-04-2024 End: 01-21-2026 SYPHILIS TREPONEMAL W/REFLEX SYPHILIS TREPONEMAL W/REFLEX Lab Routine Supervision of high risk in second trimester Expected: 04/04/2024 (Approximate), Expires: 03/14/2025 [facility] Comment on above: Expected: 04/04/2024 (Approximate), Expires: 03/14/2025 Start: 03-17-2024 End: 03-17-2024 Patient encounter procedure Maternal Medicine Comment on above: growth est mfm new consult Start: 03-14-2024 End: 03-14-2024 Patient encounter procedure 03/14/2024 10:50 AM EST Routine Office Visit OB/Gynecology [address] [place], [place] [id number] Jameel Gill MD [address] [place], [place] [address] OB OB/Gynecology Comment on above: OB Start: 03-01-2024 End: 03-01-2024 Patient encounter procedure 03/01/2024 12:00 PM EST [facility] [address] [facility] [address] [place] [address] Kelsy Ochoa, [facility] [address] [place] [address] consult, double [facility] Comment on above: consult, double ubbl e Start: 02-29-2024 End: 02-29-2024 ambulatory 02/29/2024 3:00 PM EST Procedure Pediatric Cardiology 1 [place] [address] Saulo Paniagua MD [address] [place], [place] [id number] suspected anormaly Pediatric Cardiology Comment on above: suspected anor dana Start: 02-29-2024 End: 02-29-2024 Patient encounter procedure 02/29/2024 3:00 PM EST Office Visit Pediatric Cardiology 1 [place] [address] suspected anormaly Pediatric Cardiology Comment on above: suspected anor dana Start: 02-21-2024 End: 02-17-2025 Thyrotropin [Units/volume] in Serum or Plasma TSH Lab Routine Hypothyroidism, unspecified type Expected: 02/21/2024 (Approximate), Expires: 02/17/2025 [facility] Work Phone: Comment on above: Expected: 02/21/2024 (Approximate), Expires: 02/17/2025 Start: 02-21-2024 End: 02-21-2024 Clinical Support 02/21/2024 8:30 AM EST Clinical Support [facility] [address] [facility] [place] [address] [facility] Start: 02-15-2024 End: 05-16-2024 Chromosome 21 trisomy [Presence] in Blood or Tissue by Cytogenetics [facility] Work Phone: Comment on above: Expected: 02/15/2024 , Expires: 05/16/2024 Start: 02-15-2024 End: 02-14-2025 OBSTETRIC ULTRASOUND WHI OBSTETRIC ULTRASOUND WHI Anc Imaging Routine Suspected anomaly, antepartum, single or unspecified fetus Expected: 02/15/2024, Expires: 02/14/2025 [facility] Comment on above: Expected: 02/15/2024 , Expires: 02/14/2025 Start: 02-15-2024 End: 02-15-2024 Patient encounter procedure Maternal Medicine Comment on above: Anatomy Scan OB Routine Start: 01-07-2024 End: 01-06-2025 OBSTETRIC ULTRASOUND WHI OBSTETRIC ULTRASOUND WHI Anc Imaging Routine Supervision of high risk in second trimester 16 weeks gestation of Expected: 01/07/2024, Expires: 01/06/2025 [facility] Work Phone: Comment on above: Expected: 01/07/2024 , Expires: 01/06/2025 Start: 01-07-2024 End: 01-07-2024 Patient encounter procedure 01/07/2024 1:40 PM EST Routine Office Visit OB/Gynecology [address] [place] [address] Lashae Petersen MD [address] [place] [address] OB Routine OB/Gynecology Comment on above: OB Routine Start: 01-01-2024 End: 11-30-2024 Thyrotropin [Units/volume] in Serum or Plasma TSH Lab Routine Hypothyroidism, unspecified type Expected: 01/01/2024 (Approximate), Expires: 11/30/2024 [facility] Work Phone: Comment on above: Expected: 01/01/2024 (Approximate), Expires: 11/30/2024 Start: 01-01-2024 End: 11-30-2024 Thyroxine (T4) free [Mass/volume] in Serum or Plasma T4, free Lab Routine Hypothyroidism, unspecified type Expected: 01/01/2024 (Approximate), Expires: 11/30/2024 [facility] Comment on above: Expected: 01/01/2024 (Approximate), Expires: 11/30/2024 Start: 12-30-2023 End: 12-30-2023 Clinical Support 12/30/2023 10:00 AM EST Clinical Support [address] [place] [address] [facility] Start: 12-13-2023 End: 03-13-2024 Thyrotropin [Units/volume] in Serum or Plasma THYROID STIMULATING HORMONE Lab Routine Hypothyroidism, unspecified type Expected: 12/13/2023, Expires: 03/13/2024 [facility] Work Phone: Comment on above: Expected: 12/13/2023 , Expires: 03/13/2024 Start: 12-10-2023 End: 12-10-2023 Patient encounter procedure 12/10/2023 1:30 PM EDT Routine Office Visit OB/Gynecology [address] [place] [id number] Yajaira Serrano MD [address] [place] [id number] OB Routine OB/Gynecology Comment on above: OB Routine Start: 11-29-2023 End: 11-28-2024 Lipid 1996 panel - Serum or Plasma Lipid panel Lab Routine Screening for cholesterol level Expected: 11/29/2023 (Approximate), Expires: 11/28/2024 [facility] Comment on above: Expected: 11/29/2023 (Approximate), Expires: 11/28/2024 Start: 11-29-2023 End: 11-28-2024 Thyrotropin [Units/volume] in Serum or Plasma TSH Lab Routine Hypothyroidism, unspecified type Expected: 11/29/2023 (Approximate), Expires: 11/28/2024 [facility] Work Phone: Comment on above: Expected: 11/29/2023 (Approximate), Expires: 11/28/2024 Start: 11-29-2023 End: 11-28-2024 Thyroxine (T4) free [Mass/volume] in Serum or Plasma T4, free Lab Routine Hypothyroidism, unspecified type Expected: 11/29/2023 (Approximate), Expires: 11/28/2024 [facility] Comment on above: Expected: 11/29/2023 (Approximate), Expires: 11/28/2024 Start: 11-29-2023 End: 11-29-2023 Patient encounter procedure 11/29/2023 10:20 AM EDT Office Visit [facility] [address] [place] [address] Rosette Joe, CLIENT CONSULTANT - COSMETICIAN [address] [place] [address] [facility] Start: 11-12-2023 End: 02-11-2024 CBC panel - Blood by Automated count COMPLETE BLOOD COUNT Lab Routine Encounter for supervision of normal in multigravida in first trimester Expected: 11/12/2023, Expires: 02/11/2024 [facility] Comment on above: Expected: 11/12/2023 , Expires: 02/11/2024 Start: 11-12-2023 End: 02-11-2024 Hemoglobin A1c in Blood HEMOGLOBIN A1C Lab Routine Encounter for supervision of normal in multigravida in first trimester Expected: 11/12/2023, Expires: 02/11/2024 [facility] Comment on above: Expected: 11/12/2023 , Expires: 02/11/2024 Start: 11-12-2023 End: 02-11-2024 Hepatitis B virus surface Ag [Presence] in Serum HEPATITIS B SURFACE ANTIGEN Lab Routine Encounter for supervision of normal in multigravida in first trimester Expected: 11/12/2023, Expires: 02/11/2024 [facility] Comment on above: Expected: 11/12/2023 , Expires: 02/11/2024 Start: 11-12-2023 End: 02-11-2024 Hepatitis C virus Ab [Presence] in Serum HEPATITIS C ANTIBODY IA WITH CONFIRMATION Lab Routine Encounter for supervision of normal in multigravida in first trimester Expected: 11/12/2023, Expires: 02/11/2024 [facility] Comment on above: Expected: 11/12/2023 , Expires: 02/11/2024 Start: 11-12-2023 End: 02-11-2024 HIV 1+2 Ab [Presence] in Serum or Plasma by Immunoassay HIV 1/2 COMBO WITH REFLEX TO DIFFERENTIATION Lab Routine Encounter for supervision of normal in multigravida in first trimester Expected: 11/12/2023, Expires: 02/11/2024 [facility] Comment on above: Expected: 11/12/2023 , Expires: 02/11/2024 Start: 11-12-2023 End: 02-11-2024 RUBELLA IGG ANTIBODY RUBELLA IGG ANTIBODY Lab Routine Encounter for supervision of normal in multigravida in first trimester Expected: 11/12/2023, Expires: 02/11/2024 [facility] Comment on above: Expected: 11/12/2023 , Expires: 02/11/2024 Start: 11-12-2023 End: 02-11-2024 SYPHILIS TOTAL W/REFLEX SYPHILIS TOTAL W/REFLEX Lab Routine Encounter for supervision of normal in multigravida in first trimester Expected: 11/12/2023, Expires: 02/11/2024 [facility] Comment on above: Expected: 11/12/2023 , Expires: 02/11/2024 Start: 11-12-2023 End: 02-11-2024 Thyrotropin [Units/volume] in Serum or Plasma THYROID STIMULATING HORMONE Lab Routine Encounter for supervision of normal in multigravida in first trimester Expected: 11/12/2023, Expires: 02/11/2024 [facility] Work Phone: Comment on above: Expected: 11/12/2023 , Expires: 02/11/2024 Start: 11-12-2023 End: 02-11-2024 TYPE + SCREEN TYPE + SCREEN Blood Bank Routine Encounter for supervision of normal in multigravida in first trimester Expected: 11/12/2023, Expires: 02/11/2024 [facility] Comment on above: Expected: 11/12/2023 , Expires: 02/11/2024 Start: 11-12-2023 End: 11-12-2023 Patient encounter procedure 11/12/2023 8:15 AM EDT Initial Office Visit OB/Gynecology [address] [place], [place] [id number] Arlene Pablo APRN.COSMETICIAN [address] [place] [address] OB/Gynecology Start: 10-24-2023 COVID-19 Vaccine ( season) COVID-19 Vaccine ( season) [facility] Start: 10-24-2023 Covid-19 Vaccine ( season) Covid-19 Vaccine ( season) [facility] Start: 10-24-2023 Influenza vaccination Influenza Vacc ine (#1) [facility] Start: 09-22-2023 Thyroid stimulating hormone measurement TSH Level [facility] Start: 09-20-2023 End: 09-20-2023 Patient encounter procedure [facility] Start: 02-04-2023 FUV, Provider: Namita Dye, Status: Pen, Time: 11:15 AM FUV, Provider: Namita Dye, Status: Pen, Time: 11:15 AM [id number] Work Phone: Start: 10-23-2022 Influenza vaccination Influenza Vacc ine (#1) [facility] Start: 10-01-2022 FUV, Provider: Namita Dye, Status: Pen, Time: 1:15 PM FUV, Provider: Namita Dye, Status: Pen, Time: 1:15 PM -[place] Work Phone: Start: 09-21-2022 COUNSELING, Provider : JOHNNIE RAMIREZ NURSE, Status: Pen, Time: 12:00 PM COUNSELING, Provider: JOHNNIE RAMIREZ NURSE, Status: Pen, Time: 12:00 PM -[place] Work Phone: Start: 09-21-2022 Patient encounter procedure [facility] [place] Start: 09-21-2022 PPV, Provider: Melissa Fang, Status: Pen, Time: 9:45 AM PPV, Provider: Melissa Fang, Status: Pen, Time: 9:45 AM [id number] 2nd Fl [facility] Work Phone: Start: 08-18-2022 Evaluation and management of inpatient [facility] Preadmit Start: 08-13-2022 End: 08-14-2023 Albuterol 90 micrograms/ Inhalation MDI 2 inhalation Every 6 Hours PRN ; (PROVENTIL, VENTOLIN)DOSE = 2 inhalation Every 6 Hours via MDI, PRN Shortness of BreathNotes from Pharmacy: JOHN Start: 13-Aug-2022 End: 13-Aug-2023 Ordered: 13-Aug-2022 Jeniffer Colvin Intent [facility] Start: 08-12-2022 End: 08-13-2023 [facility] Comment on above: Consult provider lakia or to administration. Push over more than 2 minutes. Systolic greater than or equal to 160 OR Diastolic greater than or equal to 110. Contraindications: active asthma, heart disease, heart failure, maternal bradycardia < 60. Consult provider lakia or to administration. Push over more than 2 minutes. Systolic greater than or equal to 160 OR Diastolic greater than or equal to 110. Contraindication: coronary artery disease (CAD); Caution in suspected CAD. Consult provider lakia or to administration. Systolic greater than or equal to 160 OR Diastolic greater than or equal to 110. Capsules administered orally and swallowed whole; Do not puncture or crush; Do not administer sublingually. administer if patien t screen is non- immune or equivocal After and PRN Before Discharge Consult provider lakia or to administration. Conditional order. C onsult Provider prior to administration. Max dose of 16mg / 2 4 hours Conditional order. 6 00 milliunits/min x 30 mins., then 60 milliunits/min for the remainder of the bag. Consult Provider prior to administration. Start: 08-12-2022 Oxytocin 30 un its/ NaCL 0.9% 500 mL Infusion with Bolus from Bag . ; IntraVenous (PITOCIN)INITIAL Bolus = 600 milliunits/min infused over 30 minutesDose Rate: 60 milliunits/minAdmin Rate = 60 mL/hrStop After 1 DosesClinician Notes: Conditional order. 600 milliunits/min x 30 mins., then 60 milliunits/min for the remainder of the bag. Consult Provider prior to administration.Notes from Pharmacy: DOSE Rate = 60 milliunits/min = 60 mL/hr. Start: 12-Aug-2022 Ordered: 12-Aug-2022 Francy Batres Intent Comments: Conditional order. 600 milliunits/min x 30 mins., then 60 milliunits/min for the remainder of the bag. Consult Provider prior to administration. [facility] Comment on above: Conditional order. 6 00 milliunits/min x 30 mins., then 60 milliunits/min for the remainder of the bag. Consult Provider prior to administration. Start: 08-09-2022 Nonstress test [facility] Start: 08-09-2022 Obstetric monitoring [facility] Start: 08-09-2022 [facility] Start: 08-09-2022 Patient discharge [facility] Start: 08-09-2022 Vital signs measurements [facility] Start: 07-31-2022 EPVOB, Provider: Melissa Fang, Status: Pen, Time: 10:00 AM EPVOB, Provider: Melissa Fang, Status: Pen, Time: 10:00 AM [facility] [address] DO Work Phone: Start: 07-29-2022 ULTRASDFUV, Provider : [facility], Status: Pen, Time: 3:30 PM ULTRASDFUV, Provider: [facility], Status: Pen, Time: 3:30 PM [facility] [address] DO Work Phone: Start: 07-08-2022 EPVOB, Provider: Melissa Fang, Status: Pen, Time: 11:00 AM EPVOB, Provider: Melissa Fang, Status: Pen, Time: 11:00 AM [facility] [address] DO Work Phone: Start: 06-26-2022 EPVOB, Provider: Melissa Fang, Status: Pen, Time: 3:15 PM EPVOB, Provider: Melissa Fang, Status: Pen, Time: 3:15 PM [facility] [address] DO Work Phone: Start: 2022 EPVOB, Provider: Melissa Fang, Status: Pen, Time: 2:45 PM EPVOB, Provider: Melissa Fang, Status: Pen, Time: 2:45 PM [facility] [address] DO Work Phone: Start: 05-26-2022 EPVOB, Provider: Melissa Fang, Status: Pen, Time: 3:30 PM EPVOB, Provider: Melissa Fang, Status: Pen, Time: 3:30 PM [facility] [address] DO Work Phone: Start: 04-28-2022 EPVOB, Provider: Melissa Fang, Status: Pen, Time: 2:30 PM EPVOB, Provider: Melissa Fang, Status: Pen, Time: 2:30 PM [facility] [address] DO Work Phone: Start: 04-13-2022 ULTRASDANT, Provider : [facility], Status: Pen, Time: 8:30 AM ULTRASDANT, Provider: [facility], Status: Pen, Time: 8:30 AM [facility] [address] DO Work Phone: Start: 03-30-2022 ULTRASDANT, Provider : [facility], Status: Pen, Time: 3:15 PM ULTRASDANT, Provider: [facility], Status: Pen, Time: 3:15 PM [facility] [address] DO Work Phone: Start: 03-02-2022 EPVOB, Provider: Melissa Fang, Status: Pen, Time: 3:45 PM EPVOB, Provider: Melissa Fang, Status: Pen, Time: 3:45 PM [facility] [address] DO Work Phone: Start: 01-23-2022 EPVOB, Provider: Melissa Fang, Status: Pen, Time: 3:15 PM EPVOB, Provider: Melissa Fang, Status: Pen, Time: 3:15 PM [facility] [address] DO Work Phone: Start: 01-14-2022 FUV, Provider: Susannah Patel, Status: Pen, Time: 8:00 AM FUV, Provider: Susannah Patel, Status: Pen, Time: 8:00 AM [facility] [id number] Work Phone: Start: 06-11-2021 Screening for malign ant neoplasm of cervix HPV/Cotest [facility] Start: 06-11-2018 HPV Vaccine (1 - 3-d ose SCDM series) HPV Vaccine (1 - 3-dose SCDM series) [facility] Start: 06-11-2012 Screening for malign ant neoplasm of cervix [facility] Start: 06-11-2010 Hepatitis B Vaccine (1 of 3 - 19+ 3-dose series) Hepatitis B Vaccine (1 of 3 - 19+ 3-dose series) [facility] Start: 06-11-2010 Hepatitis B Vaccines (1 of 3 - 19+ 3-dose series) Hepatitis B Vaccines (1 of 3 - 19+ 3-dose series) [facility] Start: 06-11-2009 Annual PCP Team [employer] kamilah Disease Visit Annual PCP Team Chronic Disease Visit [facility] Start: 06-11-2009 Anxiety Screening Anxiety Screening [facility] Start: 06-11-2009 Depression Screening Depression Scre [facility] Start: 06-11-2009 HIV screening HIV Screening [facility] Start: 06-11-2004 Varicella vaccination Varicell a Vaccines (1 of 2 - 13+ 2-dose series) [facility] Start: 2003 Depression Screening Depression Scre [facility] Start: 06-11-1997 Pneumococcal Vaccine : Pediatrics (0 to 5 Years) and At-Risk Patients (6 to 64 Years) (1 of 2 - PCV) Pneumococcal Vaccine: Pediatrics (0 to 5 Years) and At-Risk Patients (6 to 64 Years) (1 of 2 - PCV) [facility] Start: 06-11-1992 MMR Vaccines (1 of 1 - Standard series) MMR Vaccines (1 of 1 - Standard series) [facility] Start: 06-11-1992 Varicella vaccination Varicell a Vaccines (1 of 2 - 2-dose childhood series) [facility] Start: 1991 COVID-19 Vaccine (#1) COVID-19 Vacci ne (#1) [facility] Start: 1991 Hepatitis B Vaccines (1 of 3 - 3-dose series) Hepatitis B Vaccines (1 of 3 - 3-dose series) [facility] Start: 1991 Thyroid stimulating hormone measurement TSH Level [facility] Start: 1991 Yearly Adult Physical Yearly Adult P hysical [facility] Bacteria identified in Urine by Culture URINE CULTURE Microbiology Routine Encounter for supervision of normal in multigravida in first trimester 11/12/2023 9:10 AM EDT [facility] Chlamydia trachomatis+Neisseria gonorrhoeae DNA [Presence] in Unspecified specimen by JORDANA with probe detection GONORRHEA/CHLAMYDIA NAAT Lab Routine Encounter for supervision of normal in multigravida in first trimester 11/12/2023 9:10 AM EDT [facility] End: 02-14-2025 ECHO ECHO Cardiology Routine Suspected anomaly, antepartum, single or unspecified fetus 1 Occurrences starting 02/15/2024 until 02/14/2025 [facility] Work Phone: Comment on above: 1 Occurrences starti ng 02/15/2024 until 02/14/2025 PAP TEST PAP TEST Lab Lily mcintosh care and examination Screening for cervical cancer Encounter for screening for human papillomavirus (HPV) 05/22/2024 9:37 AM EDT [facility] Work Phone: Patient Education Kick Counts ED False Labor OB Triage: Return to Hospital or Notify Physician if you Experience: [facility] Work Phone: Patient referral [facility] Work Phone: Tissue Pathology bio psy report SURGICAL PATHOLOGY Lab Routine Need for observation and evaluation of for sepsis Ordered: 04/22/2024 [facility] Work Phone: Comment on above: Ordered: 04/22/2024 Immunizations Immunization Date Immunization Notes Care Provider [facility] 04-11-2024 tetanus toxoid, redu tang diphtheria toxoid, and acellular pertussis vaccine, adsorbed Yajaira Serrano MD Work Phone: [facility] 05-26-2022 tetanus toxoid, redu tang diphtheria toxoid, and acellular pertussis vaccine, adsorbed; Translations: [Tdap (Boostrix)] Melissa Fang MD Work Phone: [facility] DO Work Phone: Comment on above: Series: 01-14-2022 influenza, injectabl e, quadrivalent, preservative free; Translations: [Flulaval Quadrivalent 0.5 ML Intramuscular Suspension Prefilled Syringe] Melissa Fang MD Work Phone: [facility] Comment on above: Series: 01-14-2022 influenza virus vaccine, unspecified formulation Namita Dye MD MPH Work Phone: [facility] Work Phone: Payers Date Payer Category Payer Self-pay 2023 Commercial Managed C are - O [facility] [id number] 2023 Private Health Insurance [id number] 2023 Unknown [id number] 2022 Unknown 2022 Unknown [id number] 1991 Unknown [id number] 2.0.1.558750.3.579.2. 356 1991 Unknown [id number] 2.0.1.783202.3.579.2. 356 1991 Unknown [id number] 2.0.1.943408.3.579.2. 356 1991 Unknown [id number] 2.0.1.510919.3.579.2. 356 1991 Unknown [id number] 2.0.1.994542.3.579.2. 356 1991 Unknown [id number] 2.840.1.568563.3.579.2. 356 1991 Unknown [id number] 2.0.1.953634.3.579.2. 356 1991 Unknown [id number] 2.16.840.1.909385.3.579.2. 1991 Unknown [id number] 2.16840.1.084062.3.579.2. 1991 Unknown [id number] 2.16.840.1.897173.3.579.2. 1991 Unknown [id number] 2.840.1.702709.3.579.2. 1991 Unknown [id number] 2.840.1.190768.3.579.2. 1991 Unknown [id number] 2.840.1.701232.3.579.2. 1991 Unknown [id number] 2.840.1.561358.3.579.2. 1991 Unknown [id number] 2.840.1.964136.3.579.2. 1991 Unknown [id number] 2.840.1.118074.3.579.2. 1991 Unknown [id number] 2.840.1.364509.3.579.2. 1991 Unknown [id number] 2.840.1.910469.3.579.2. 1991 Unknown [id number] 2.840.1.146511.3.579.2. 1991 Unknown [id number] 2.840.1.928134.3.579.2. 1991 Unknown [id number] 2.840.1.082308.3.579.2. 1991 Unknown [id number] 2.840.1.165539.3.579.2. 1991 Unknown [id number] 2.840.1.090095.3.579.2. 1991 Unknown [id number] 2.16.840.1.128412.3.579.2. 356 1991 Unknown [id number] 2.16.840.1.384121.3.579.2. 356 1991 Unknown [id number] 2.16.840.1.925412.3.579.2. 356 1991 Unknown [id number] 2.16.840.1.157935.3.579.2. 1069 1991 Unknown [id number] 2.16.840.1.685939.3.579.2. 1243 1991 Unknown [id number] 2.16.840.1.349698.3.579.2. 1244 Unknown [id number] Unknown [id number] 2.16.840.1.268740.3.579.2. 462 Social History Date Type Detail Facility Start: 10-22-2023 End: 11-28-2024 Never smoker Never smoker [facility] Work Phone: Start: 1990 Sex Assigned At Female [facility] Tobacco smoking consumption unknown [facility] Start: 1990 Sex Assigned At Not on file [facility] Work Phone: Start: 10-22-2023 End: 11-28-2024 Gender identity Not on file [facility] Work Phone: Start: 01-25-2023 End: 02-04-2023 Exposure to SARS-CoV-2 (event) Not sure [facility] Start: 03-01-2023 End: 03-11-2023 Exposure to SARS-CoV-2 (event) Unable to assess [facility] Start: 11-11-2023 End: 03-17-2024 Tobacco smoking status ORIS Never smoked tobacco [facility] Start: 10-22-2023 End: 11-28-2024 Alcoholic beverage intake Current drinker of alcohol (finding) [facility] Start: 11-11-2023 End: 03-17-2024 Tobacco use and exposure Smokeless tobacco non-user [facility] Start: 11-12-2023 End: 11-07-2024 Alcoholic beverage intake Ex-drinker (finding) [facility] Start: 11-11-2023 End: 11-29-2023 Education 18 [facility] Start: 10-02-2023 [facility] Start: 01-03-2021 Adolescent depressio n screening assessment 3 [facility] Start: 09-22-2021 Sex Female (finding) [facility] How often do you nee d to have someone help you when you read instructions, pamphlets, or other written material from your doctor or pharmacy [SILS] Never [facility] Has the [employer], or [employer] threatened to shut off services in your home in past 12Mo No [facility] Do you belong to any clubs or organizations such as mandaeism groups, unions, fraternal or athletic groups, or school groups? Yes [facility] Are you now , , , , never or living with a partner? [facility] How often to you hav e a drink containing alcohol? 2-4 times a month [facility] How many standard drinks containing alcohol do you have on a typical day? 1 or 2 [facility] Do you feel stress - tense, restless, nervous, or anxious, or unable to sleep at night because your mind is troubled all the time - these days [OSQ] Only a little [facility] (I/We) worried wheth er (my/our) food would run out before (I/we) got money to buy more. Never true [facility] NEGATED: Highlighted row - Never smoker [facility] Work Phone: NEGATED: Highlighted rowStart: ENRIQUEF History of tobacco use Passive smoker [facility] Functional Status Date Assessment Result Facility 11-28-2024 Total score [AUDIT-C] 2 11/29/19 25 11:30 AM EDT Bert Galindo MA [facility] 11-28-2024 Patient Health Questionnaire 2 item (PHQ-2) [Reported] [facility] 11-28-2024 PHQ-9 quick depressi on assessment panel [Reported.PHQ] [facility] 11-28-2024 Generalized anxiety disorder 7 item (CHRISTOPHER-7) [facility] Functional observable [facility] NEGATED: Highlighted row Functional performance Functional status health issues are not documented Disease [facility] Work Phone: Mental Status Date Assessment Result Facility 08-12-2022 Cognitive functi ons [id number] [facility] NEGATED: Highlighted row Cognitive function [Interpretation] Cognitive status health issues are not documented Disease [facility] Work Phone: Clinical Notes 12-26-2021 to 12-01-2024 Addendum Note - Joseph Candelaria MD - 12/01/2024 8:10 AM EDTAddendum Note - Joseph Candelaria MD - 12/01/2024 8:10 AM EDTTelephone Encounter - Ronit Chavez - 11/29/2024 12:23 PM EDT Note Date & Type Note Facility 12-01-2024 Note Addended by: JOSEPH CANDELARIA on: 12/01/2024 08:10 AM Modules accepted: Orders [facility] 12-01-2024 Miscellaneous Notes Addended by: JOSEPH CANDELARIA on: 12/01/2024 08:10 AM Modules accepted: Orders Rx sent Message released to patient as written. Yes Patient's further questions if applicable: The patient is asking if a new prescription will be sent to her pharmacy for the 75 MCG daily as per the Te from Dr. Candelaria. Please advise. Were all questions from office addressed or relayed to the patient from encounter: Yes documented in this encounter [facility] 12-01-2024 Telephone encounter Note Rx sent [facility] 11-29-2024 Telephone encounter Note Message released to patient as written. Yes Patient's further questions if applicable: The patient is asking if a new prescription will be sent to her pharmacy for the 75 MCG daily as per the Te from Dr. Candelaria. Please advise. Were all questions from office addressed or relayed to the patient from encounter: Yes [facility] 11-29-2024 Miscellaneous Notes Message released to patient as written. Yes Patient's further questions if applicable: The patient is asking if a new prescription will be sent to her pharmacy for the 75 MCG daily as per the Te from Dr. Candelaria. Please advise. Were all questions from office addressed or relayed to the patient from encounter: Yes documented in this encounter [facility] 11-28-2024 Evaluation + Plan note Associated Problem(s): Anxiety and depression In remission, continue sertraline 50 mg daily [facility] 11-28-2024 Evaluation + Plan note Associated Problem(s): Hypothyroidism Controlled, continue levothyroxine 25 mcg twice a week and 50 mcg 5 days a week. [facility] 11-28-2024 Miscellaneous Notes Associated Problem(s): Anxiety and depression In remission, continue sertraline 50 mg daily Associated Problem(s): Hypothyroidism Controlled, continue levothyroxine 25 mcg twice a week and 50 mcg 5 days a week. documented in this encounter [facility] 11-28-2024 History of Presen t illness Narrative Patient verified by last name and date of . Images from the original note were not included. 11/28/2024 Rosendo Roth (: 1990) is a 34 y.o. female , Established patient, here for evaluation of the following chief complaint(s): Annual Exam, Blood Work, and Health Maintenance (Flu vaccine- refuse) ASSESSMENT/PLAN: 1. Annual physical exam 2. Acquired hypothyroidism Assessment & Plan: Controlled, continue levothyroxine 25 mcg twice a week and 50 mcg 5 days a week. 3. Anxiety and depression Assessment & Plan: In remission, continue sertraline 50 mg daily 4. Screening for lipid disorders - Lipid panel 5. Screening for diabetes mellitus - Comprehensive metabolic panel 6. Influenza vaccine refused Follow up in about 6 months (around 05/29/2025). SUBJECTIVE/OBJECTIVE: MARIVEL Osman comes in today for an annual exam, she sees CLIENT RENEWAL SPECIALIST for her Pap test. She has a history of atopic dermatitis and exercise-induced asthma which seems to be stable at this time. She also has hypothyroidism which seems to be stable. She does need fasting lab work Review of Systems Constitutional: Negative for chills and fever. Respiratory: Negative for shortness of breath. Cardiovascular: Negative for chest pain and palpitations. Gastrointestinal: Negative for abdominal pain, blood in stool, constipation and diarrhea. Genitourinary: Negative for dyspareunia, dysuria, frequency, hematuria and urgency. Neurological: Negative for weakness and numbness. Psychiatric/Behavioral: Negative for dysphoric mood. The patient is not nervous/anxious. Vitals: 11/28/24 1102 BP: 94/59 Pulse: 74 SpO2: 96% Weight: 153 lb 12.8 oz (69.8 kg) Height: 5' 8 (1.727 m) Physical Exam Vitals and nursing note reviewed. Constitutional: General: She is not in acute distress. Appearance: Normal appearance. HENT: Head: Normocephalic. Right Ear: Tympanic membrane, ear canal and external ear normal. Left Ear: Tympanic membrane, ear canal and external ear normal. Mouth/Throat: Mouth: Mucous membranes are moist. Pharynx: Oropharynx is clear. Eyes: Extraocular Movements: Extraocular movements intact. Pupils: Pupils are equal, round, and reactive to light. Neck: Thyroid: No thyromegaly. Cardiovascular: Rate and Rhythm: Normal rate and regular rhythm. Heart sounds: Normal heart sounds. No murmur heard. Pulmonary: Effort: Pulmonary effort is normal. Breath sounds: Normal breath sounds. Abdominal: General: Bowel sounds are normal. Palpations: Abdomen is soft. Musculoskeletal: General: Normal range of motion. Cervical back: Normal range of motion. Lymphadenopathy: Cervical: No cervical adenopathy. Skin: General: Skin is warm and dry. Neurological: General: No focal deficit present. Mental Status: She is alert and oriented to person, place, and time. Deep Tendon Reflexes: Reflexes normal. Psychiatric: Mood and Affect: Mood normal. An electronic signature was used to authenticate this note. Joseph Candelaria MD 11/28/2024 11:26 AM documented in this encounter [facility] 11-07-2024 Note HNO ID: [id number] Author: ARLENE PABLO APRN.COSMETICIAN Service: ? Author Type: Nurse Practitioner Type: Progress Notes Filed: 11/07/2024 14:55 Note Text: Obstetrics and Gynecology [place] CLIENT RENEWAL SPECIALIST Visit Subjective Recording using [employer] software for draft documentation of the visit was discussed with the patient/authorized patient registration representative; all questions welcomed and answered. Patient/authorized patient registration representative agreed to proceed CHIEF COMPLAINT: The patient is a 34-year-old female with hypothyroidism, presenting for evaluation of breakthrough bleeding on progestin-only oral contraceptive (Slynd). HPI: Menstrual History - Currently on Slynd, reports experiencing irregular bleeding since starting the medication post-delivery approximately 5-6 months ago. - Bleeding occurs consistently in the middle of the pack, replacing the expected period days. - During the last cycle, experienced bleeding for several days, followed by a period onset after starting placebo pills. - Denies significant cramping or abnormal pain associated with the bleeding. Contraception Counseling AND Management - Considering alternative contraceptive methods due to irregular bleeding on Slynd. - Expresses interest in having more children but not planning to start trying until her son is at least a year old, possibly longer. - Open to trying a lower dose progesterone pill, which she has used before without issues. Past Medical History - Hypothyroidism Current Medications and Supplements - Slynd - Levothyroxine: 25 mcg five days a week, 50 mcg two days a week. HISTORY: OB History Gravida2 Para2 Term1 Preterm1 AB0 Living2 SAB0 IAB0 Ectopic0 Multiple0 Live Births2 Unionmelt Operator History LMP: 09/11/2023 (Approximate), Unknown Age at Menarche: Age at First : Age at Menopause: Unionmelt Operator History Comments: Sexual Activity: Yes; Male Contraception: No contraception data on record PAST MEDICAL HISTORY Diagnosis Date anxiety/depression Exercise-induced asthma (HCC) has not used an inhaler since 2021 Hypothyroidism IBS (irritable bowel syndrome) no issues since 2018 depression Third degree perineal laceration (HCC) PAST SURGICAL HISTORY Procedure Laterality Date ENLARGE BREAST WITH IMPLANT PAST SURGICAL HISTORY OF wisdom teeth PAST SURGICAL HISTORY OF mole excision x 2 TONSILLECTOMY AND ADENOIDECTOMY FAMILY HISTORY Problem Relation Age of Onset No Known Problems Mother No Known Problems Father No Known Problems Sister No Known Problems Brother No Known Problems Maternal Grandmother Dementia Maternal Grandfather Lung Cancer Paternal Grandmother Dementia Paternal Grandfather No Known Problems Son SOCIAL HISTORY[1] Current Outpatient Medications Medication Sig levothyroxine (SYNTHROID) 50 mcg tablet Take 1 tablet by mouth two times a week. levothyroxine (SYNTHROID) 25 mcg tablet Take 25 mcg by mouth five times a week. VIT 49-IRON FUM-FOLIC ORAL Take by mouth. sertraline (ZOLOFT) 50 mg tablet Take 50 mg by mouth once daily. Norethindrone, Contraceptive, (DANYELL) 0.35 mg tablet Take 1 tablet by mouth once daily. No current facility-administered medications for this visit. ALLERGIES Allergen Reactions Animal Dander Other: See Comments Grass Pollen Other: See Comments House Dust Other: See Comments REVIEW OF SYSTEMS: Genitourinary: (+) breakthrough bleeding, (-) pelvic cramping Objective SENSITIVE EXAM: Sensitive exam not performed. PHYSICAL EXAM: BP 120/68 Wt 155 lb 12.8 oz (70.7kg) LMP 09/11/2023 GENERAL: Pleasant; in no apparent distress PULMONARY: normal inspiratory effort NEURO: alert and oriented x3 EXTREMITIES: normal Assessment AND Plan ASSESSMENT AND PLAN: 1. Irregular intermenstrual bleeding (N92.1) - Persistent irregular bleeding while on Slynd, occurring mid-pack and during placebo week; no significant cramping or abnormal pain. - Discussed that irregular bleeding may be related to the type and dose of progestin in Slynd. - Discontinue Slynd; start norethindrone 0.35 mg PO daily. - Advised use of condoms as backup contraception for the first two weeks after switching to norethindrone. - Discussed alternative options, including Mirena IUD and higher-dose norethindrone 5 mg daily; patient prefers to try lower-dose norethindrone first. - Educated on expected bleeding patterns with progestin-only pills and IUDs, including potential for amenorrhea with Mirena. - Advised to monitor bleeding patterns over the next 1-2 months; if irregular bleeding persists, will consider alternative options. - Follow-up as needed if irregular bleeding continues or if patient wishes to discuss other contraceptive options. Arlene Pablo APRN.MOUNA Medical Decision Making: Problems: Moderate: New problem with uncertain prognosis Risk: Moderate: Drug management Medical Decision Making Level: 4 - Moderate [1] S (more content not included)... [facility] 11-07-2024 History of Presen t illness Narrative Images from the original note were not included. Obstetrics and Gynecology [place] [facility] RENEWAL SPECIALIST Visit Subjective Recording using [employer] software for draft documentation of the visit was discussed with the patient/authorized patient registration representative; all questions welcomed and answered. Patient/authorized patient registration representative agreed to proceed CHIEF COMPLAINT: The patient is a 34-year-old female with hypothyroidism, presenting for evaluation of breakthrough bleeding on progestin-only oral contraceptive (Slynd). HPI: Menstrual History - Currently on Slynd, reports experiencing irregular bleeding since starting the medication post-delivery approximately 5-6 months ago. - Bleeding occurs consistently in the middle of the pack, replacing the expected period days. - During the last cycle, experienced bleeding for several days, followed by a period onset after starting placebo pills. - Denies significant cramping or abnormal pain associated with the bleeding. Contraception Counseling & Management - Considering alternative contraceptive methods due to irregular bleeding on Slynd. - Expresses interest in having more children but not planning to start trying until her son is at least a year old, possibly longer. - Open to trying a lower dose progesterone pill, which she has used before without issues. Past Medical History - Hypothyroidism Current Medications and Supplements - Slynd - Levothyroxine: 25 mcg five days a week, 50 mcg two days a week. HISTORY: OB History Gravida2 Para2 Term1 Preterm1 AB0 Living2 SAB0 IAB0 Ectopic0 Multiple0 Live Births2 Unionmelt Operator History LMP: 09/11/2023 (Approximate), Unknown Age at Menarche: Age at First : Age at Menopause: Unionmelt Operator History Comments: Sexual Activity: Yes; Male Contraception: No contraception data on record PAST MEDICAL HISTORY Diagnosis Date anxiety/depression Exercise-induced asthma (HCC) has not used an inhaler since 2021 Hypothyroidism IBS (irritable bowel syndrome) no issues since 2018 depression Third degree perineal laceration (HCC) PAST SURGICAL HISTORY Procedure Laterality Date ENLARGE BREAST WITH IMPLANT PAST SURGICAL HISTORY OF wisdom teeth PAST SURGICAL HISTORY OF mole excision x 2 TONSILLECTOMY & ADENOIDECTOMY <AGE 13 FAMILY HISTORY Problem Relation Age of Onset No Known Problems Mother No Known Problems Father No Known Problems Sister No Known Problems Brother No Known Problems Maternal Grandmother Dementia Maternal Grandfather Lung Cancer Paternal Grandmother Dementia Paternal Grandfather No Known Problems Son SOCIAL HISTORY[1] Current Outpatient Medications Medication Sig levothyroxine (SYNTHROID) 50 mcg tablet Take 1 tablet by mouth two times a week. levothyroxine (SYNTHROID) 25 mcg tablet Take 25 mcg by mouth five times a week. VIT 49-IRON FUM-FOLIC ORAL Take by mouth. sertraline (ZOLOFT) 50 mg tablet Take 50 mg by mouth once daily. Norethindrone, Contraceptive, (DANYELL) 0.35 mg tablet Take 1 tablet by mouth once daily. No current facility-administered medications for this visit. ALLERGIES Allergen Reactions Animal Dander Other: See Comments Grass Pollen Other: See Comments House Dust Other: See Comments REVIEW OF SYSTEMS: Genitourinary: (+) breakthrough bleeding, (-) pelvic cramping Objective SENSITIVE EXAM: Sensitive exam not performed. PHYSICAL EXAM: BP 120/68 Wt 155 lb 12.8 oz (70.7kg) LMP 09/11/2023 GENERAL: Pleasant; in no apparent distress PULMONARY: normal inspiratory effort NEURO: alert and oriented x3 EXTREMITIES: normal Assessment & Plan ASSESSMENT AND PLAN: 1. Irregular intermenstrual bleeding (N92.1) - Persistent irregular bleeding while on Slynd, occurring mid-pack and during placebo week; no significant cramping or abnormal pain. - Discussed that irregular bleeding may be related to the type and dose of progestin in Slynd. - Discontinue Slynd; start norethindrone 0.35 mg PO daily. - Advised use of condoms as backup contraception for the first two weeks after switching to norethindrone. - Discussed alternative options, including Mirena IUD and higher-dose norethindrone 5 mg daily; patient prefers to try lower-dose norethindrone first. - Educated on expected bleeding patterns with progestin-only pills and IUDs, including potential for amenorrhea with Mirena. - Advised to monitor bleeding patterns over the next 1-2 months; if irregular bleeding persists, will consider alternative options. - Follow-up as needed if irregular bleeding continues or if patient wishes to discuss other contraceptive options. Arlene Pablo APRN.CNP Medical Decision Making: Problems: Moderate: New problem with uncertain prognosis Risk: Moderate: Drug management Medical Decision Making Level: 4 - Moderate [1] Social History Tobacco Use Smoking status: Never Passive exposure: Never Smokeless tobacco: Never Vaping Use Vaping status: Never Used Substance Use Topics Alcohol use: Not Currently Drug use: Not Currently Types: Marijuana Comment: no use since 06/2023 documented in this encounter [facility] 10-24-2024 Note Addended by: ROSETTE ABDUL on: 10/24/2024 04:21 PM Modules accepted: Orders [facility] 10-24-2024 Note Addended by: ROSETTE ABDUL on: 10/24/2024 04:21 PM Modules accepted: Orders [facility] 10-24-2024 Note Addended by: ROSETTE ABDUL on: 10/24/2024 04:21 PM Modules accepted: Orders [facility] 10-24-2024 Miscellaneous Notes Addended by: ROSETTE JOE on: 10/24/2024 04:21 PM Modules accepted: Orders Addended by: BERT GALINDO on: 10/24/2024 03:05 PM Modules accepted: Orders Order pended - please sign Patient's further questions if applicable: Patient is due to have her thyroid levels checked in early December (6 months from last check/result discussion). Please place order in [facility] so patient can have [facility] draw the labs in December. Lm to return call- also sent [facility] msg ----- Message from RUSLAN Richards CNP sent at 06/21/2024 6:16 AM EDT ----- TSH- normal level, continue current dosing of levothyroxine. Recheck TSH in 6 months Left a message to return call. documented in this encounter [facility] 10-24-2024 Note Addended by: Herberth GALINDO on: 10/24/2024 03:05 PM Modules accepted: Orders [facility] 10-24-2024 Note Addended by: Herberth GALINDO on: 10/24/2024 03:05 PM Modules accepted: Orders [facility] 10-24-2024 Note Addended by: Herberth GALINDO on: 10/24/2024 03:05 PM Modules accepted: Orders [facility] 10-24-2024 Telephone encounter Note Order pended - please sign [facility] 10-24-2024 Telephone encounter Note Patient's further questions if applicable: Patient is due to have her thyroid levels checked in early December (6 months from last check/result discussion). Please place order in [facility] so patient can have [facility] draw the labs in December. [facility] 09-14-2024 Telephone encounter Note Reviewed chart. Refill appropriate. RX sent. [facility] 09-14-2024 Miscellaneous Notes Reviewed chart. Refill appropriate. RX sent. Prescription Request: LEVOTHYROXINE 50 MCG TABLET Last medication check: none Last physical exam: 11/29/23 ( PATIENT REGISTRATION REPRESENTATIVE appt) Next scheduled appointment: 11/28/24 Last date of refill on this medication 07/18/24 ( qty 24 refill 9) documented in this encounter [facility] 09-14-2024 Telephone encounter Note Prescription Request: LEVOTHYROXINE 50 MCG TABLET Last medication check: none Last physical exam: 11/29/23 ( PATIENT REGISTRATION REPRESENTATIVE appt) Next scheduled appointment: 11/28/24 Last date of refill on this medication 07/18/24 ( qty 24 refill 9) [facility] 07-18-2024 Telephone encounter Note Reviewed chart. Refill appropriate. RX sent. [facility] 07-18-2024 Miscellaneous Notes Reviewed chart. Refill appropriate. RX sent. Prescription Request: LEVOTHYROXINE 25 MCG TABLET Last medication check: none Last physical exam: none Next scheduled appointment: 11/28/24 Last date of refill on this medication 03/22/24 ( qty 24 refill 0) 11/29/23 - PATIENT REGISTRATION REPRESENTATIVE documented in this encounter [facility] 07-18-2024 Telephone encounter Note Prescription Request: LEVOTHYROXINE 25 MCG TABLET Last medication check: none Last physical exam: none Next scheduled appointment: 11/28/24 Last date of refill on this medication 03/22/24 ( qty 24 refill 0) 11/29/23 - PATIENT REGISTRATION REPRESENTATIVE [facility] 06-23-2024 Telephone encounter Note Lm to return call- also sent mychart msg [facility] 06-21-2024 Telephone encounter Note ----- Message from Rosette Joe APRN - COSMETICIAN sent at 06/21/2024 6:16 AM EDT ----- TSH- normal level, continue current dosing of levothyroxine. Recheck TSH in 6 months Left a message to return call. [facility] 05-22-2024 Note HNO ID: [id number] Author: DAVID MELTON MD Service: ? Author Type: Physician Type: Progress Notes Filed: 05/22/2024 09:30 Note Text: Tugboat Captain offered: Patient accepts, visit chaperoned by Neelam Vazquez MA. VISIT Rosendo Roth is a 33 year old year old here for visit. 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 OB Depression and Anxiety Screening- This Encounter (since 05/21/2024) Over the past 2 weeks have you felt down, depressed, or hopeless? Negative Over the past two weeks, have you felt little interest or pleasure in doing things?? Negative Feeling nervous, anxious or on edge 0-Not at all Not being able to stop or control worrying 0-Not al all Anxiety Pre-Screening Total (If >/= 3 additional questions will be reviewed) 0 Emotional support: Yes Bowel symptoms: No nausea, vomiting, or diarrhea, No heartburn or reflux symptoms, Negative for abdominal discomfort, blood in stools or black stools, and change in bowel habits Abdomen: N/A Bladder symptoms: No dysuria, gross hematuria, urinary frequency, urinary urgency, or incontinence Other issues: Wants to be put on control. Last Pap: 2021 normal HPV: negative PAST MEDICAL HISTORY Diagnosis Date anxiety/depression Exercise-induced asthma has not used an inhaler since 2021 Hypothyroidism IBS (irritable bowel syndrome) no issues since 2018 depression Third degree perineal laceration PAST SURGICAL HISTORY Procedure Laterality Date ENLARGE BREAST WITH IMPLANT PAST SURGICAL HISTORY OF wisdom teeth PAST SURGICAL HISTORY OF mole excision x 2 TONSILLECTOMY AND ADENOIDECTOMY FAMILY HISTORY Problem Relation Age of Onset No Known Problems Mother No Known Problems Father No Known Problems Sister No Known Problems Brother No Known Problems Maternal Grandmother Dementia Maternal Grandfather Lung Cancer Paternal Grandmother Dementia Paternal Grandfather No Known Problems Son Social History Tobacco Use Smoking status: Never Passive exposure: Never Smokeless tobacco: Never Vaping Use Vaping status: Never Used Substance Use Topics Alcohol use: Not Currently Drug use: Not Currently Types: Marijuana Comment: no use since 06/2023 PHYSICAL EXAMINATION: SENSITIVE EXAM: The sensitive examination was discussed with the Patient or Patient's Authorized Senior Storage Administrator. As applicable, any other physician, advance practice provider, medical student, or other health professional student that will be observing or involved in the sensitive examination for educational or training purposes was discussed with the Patient or Authorized Senior Storage Administrator. The Patient or Authorized Senior Storage Administrator has agreed to proceed with the sensitive examination. (Sensitive examination includes inspection and/or palpation of the breasts, pelvis, prostate and anorectal regions). BP 114/62 Wt 153 lb (69.4kg) LMP 09/11/2023 GENERAL: pleasant, female in no apparent distress HEENT: Normocephalic, atraumatic, mucus membranes moist, and no lesions NECK: Supple, full range of motion, no adenopathy, and thyroid normal DERMATOLOGY: Normal, without lesions, non-icteric, and non-hirsute BREAST: soft, non-tender, symmetric, no dominant mass, normal nipple-areolar complex, no lymphadenopathy, and no nipple discharge CHEST: Normal inspiratory effort ABDOMEN: soft, non-tender, and no masses. INCISION: N/A PELVIC: external genitalia normal, normal Bartholin's glands, urethra, [place]'s glands, no vulvar lesions, no cervical lesions, good vaginal support, physiologic discharge present, normal appearing perineal body and perianal region BIMANUAL: uterus normal size, shape and consistency, no adnexal masses, and non-tender NEURO: alert and oriented x3,exam grossly non-focal EXTREMITIES: normal ASSESSMENT AND PLAN: 33 year old status post with normal course. Contraception plan: Oral contraceptives and condoms Follow up: Depression: On Zoloft and followed by her mental health worker Rx Ward Melton MD [facility] 05-22-2024 History of Presen t illness Narrative Tugboat Captain offered: Patient accepts, visit chaperoned by Neelam Vazquez MA. VISIT Rosendo Roth is a 33 year old year old here for visit. 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 OB Depression and Anxiety Screening- This Encounter (since 05/21/2024) Over the past 2 weeks have you felt down, depressed, or hopeless? Negative Over the past two weeks, have you felt little interest or pleasure in doing things? Negative Feeling nervous, anxious or on edge 0-Not at all Not being able to stop or control worrying 0-Not al all Anxiety Pre-Screening Total (If >/= 3 additional questions will be reviewed) 0 Emotional support: Yes Bowel symptoms: No nausea, vomiting, or diarrhea, No heartburn or reflux symptoms, Negative for abdominal discomfort, blood in stools or black stools, and change in bowel habits Abdomen: N/A Bladder symptoms: No dysuria, gross hematuria, urinary frequency, urinary urgency, or incontinence Other issues: Wants to be put on control. Last Pap: 2021 normal HPV: negative PAST MEDICAL HISTORY Diagnosis Date anxiety/depression Exercise-induced asthma has not used an inhaler since 2021 Hypothyroidism IBS (irritable bowel syndrome) no issues since 2018 depression Third degree perineal laceration PAST SURGICAL HISTORY Procedure Laterality Date ENLARGE BREAST WITH IMPLANT PAST SURGICAL HISTORY OF wisdom teeth PAST SURGICAL HISTORY OF mole excision x 2 TONSILLECTOMY & ADENOIDECTOMY <AGE 13 FAMILY HISTORY Problem Relation Age of Onset No Known Problems Mother No Known Problems Father No Known Problems Sister No Known Problems Brother No Known Problems Maternal Grandmother Dementia Maternal Grandfather Lung Cancer Paternal Grandmother Dementia Paternal Grandfather No Known Problems Son Social History Tobacco Use Smoking status: Never Passive exposure: Never Smokeless tobacco: Never Vaping Use Vaping status: Never Used Substance Use Topics Alcohol use: Not Currently Drug use: Not Currently Types: Marijuana Comment: no use since 06/2023 PHYSICAL EXAMINATION: SENSITIVE EXAM: The sensitive examination was discussed with the Patient or Patient's Authorized Senior Storage Administrator. As applicable, any other physician, advance practice provider, medical student, or other health professional student that will be observing or involved in the sensitive examination for educational or training purposes was discussed with the Patient or Authorized Senior Storage Administrator. The Patient or Authorized Senior Storage Administrator has agreed to proceed with the sensitive examination. (Sensitive examination includes inspection and/or palpation of the breasts, pelvis, prostate and anorectal regions). BP 114/62 Wt 153 lb (69.4kg) LMP 09/11/2023 GENERAL: pleasant, female in no apparent distress HEENT: Normocephalic, atraumatic, mucus membranes moist, and no lesions NECK: Supple, full range of motion, no adenopathy, and thyroid normal DERMATOLOGY: Normal, without lesions, non-icteric, and non-hirsute BREAST: soft, non-tender, symmetric, no dominant mass, normal nipple-areolar complex, no lymphadenopathy, and no nipple discharge CHEST: Normal inspiratory effort ABDOMEN: soft, non-tender, and no masses. INCISION: N/A PELVIC: external genitalia normal, normal Bartholin's glands, urethra, [place]'s glands, no vulvar lesions, no cervical lesions, good vaginal support, physiologic discharge present, normal appearing perineal body and perianal region BIMANUAL: uterus normal size, shape and consistency, no adnexal masses, and non-tender NEURO: alert and oriented x3,exam grossly non-focal EXTREMITIES: normal ASSESSMENT AND PLAN: 33 year old status post with normal course. Contraception plan: Oral contraceptives and condoms Follow up: Depression: On Zoloft and followed by her mental health worker Rx Ward Melton MD documented in this encounter [facility] 04-24-2024 Telephone encounter Note 90 day supply sent 03/02/24 [facility] 04-24-2024 Miscellaneous Notes 90 day supply sent 03/02/24 Spoke w pnt. Advised that on 03/02/24 her RX was sent in for a 90 day supply and to check with the pharmacy S: Patient spoke with CAC nurse regarding refill B: Onset of symptoms/concern today A: Pt calling to request refill of Zoloft 50 mg tablet. States is out or may have 1 dose left. R: Allergies and pharmacy verified. Pt advised refill request will be sent to provider to address and the office would be back in contact to discuss plan of care. Patient understands care advice. No further needs at this time. Patient instructed to call back with new or worsening symptoms. Reason for Disposition [1] Prescription refill request for NON-ESSENTIAL medicine (i.e., no harm to patient if med not taken) AND [2] triager unable to refill per department policy Protocols used: Medication Refill and Renewal [id number] documented in this encounter [facility] 04-24-2024 Telephone encounter Note Spoke w pnt. Advised that on 03/02/24 her RX was sent in for a 90 day supply and to check with the pharmacy [facility] 04-24-2024 Note HNO ID: [id number] Author: YAJAIRA AVILES RN Service: ? Author Type: Registered Nurse Type: Progress Notes Filed: 04/24/2024 09:06 Note Text: Patient delivered via at [facility] on 04/22/24 per Chel Branch See OB Outcome note. Yajaira Aviles RN [facility] 04-24-2024 History of Presen t illness Narrative Patient delivered via at [facility] on 04/22/24 per Chel Branch See OB Outcome note. Yajaira Aviles RN documented in this encounter [facility] 04-23-2024 Telephone encounter Note S: Patient spoke with CAC nurse regarding refill B: Onset of symptoms/concern today A: Pt calling to request refill of Zoloft 50 mg tablet. States is out or may have 1 dose left. R: Allergies and pharmacy verified. Pt advised refill request will be sent to provider to address and the office would be back in contact to discuss plan of care. Patient understands care advice. No further needs at this time. Patient instructed to call back with new or worsening symptoms. Reason for Disposition [1] Prescription refill request for NON-ESSENTIAL medicine (i.e., no harm to patient if med not taken) AND [2] triager unable to refill per department policy Protocols used: Medication Refill and Renewal [id number] [facility] 04-22-2024 Note HNO ID: [id number] Author: NILDA WATERS APRN.CNP Service: ? Author Type: Nurse Practitioner Type: Progress Notes Filed: 04/22/2024 14:21 Note Text: Order for placental pathology placed. Nilda Waters APRN.CNP [facility] 04-22-2024 History of Presen t illness Narrative Order for placental pathology placed. Nilda Waters APRN.CNP documented in this encounter [facility] 04-21-2024 Note HNO ID: [id number] Author: DAREK PICHARDO MD Service: ? Author Type: Physician Type: Progress Notes Filed: 04/21/2024 08:22 Note Text: NST SUMMARY PROVIDER ASSESSMENT AND INTERPRETATION Rosendo Roth is a 33 year old female, , who is at 30w5d with an YUSUF of 06/25/2024, by Ultrasound dating method. Indications for NST: Other: SUA Baseline: 120 Variability: Moderate Accelerations: Present 10 X 10 Decelerations: None Contractions: TOCO: None Interpretation: Reactive SIGNATURE: Darek Pichardo DO [facility] 04-21-2024 History of Presen t illness Narrative NST SUMMARY PROVIDER ASSESSMENT AND INTERPRETATION Rosendo Roth is a 33 year old female, , who is at 30w5d with an YUSUF of 06/25/2024, by Ultrasound dating method. Indications for NST: Other: SUA Baseline: 120 Variability: Moderate Accelerations: Present 10 X 10 Decelerations: None Contractions: TOCO: None Interpretation: Reactive SIGNATURE: Darek Pichardo DO documented in this encounter [facility] 04-20-2024 Progress note Formatting of t his note might be different from the original. SW- NST only. [facility] 04-20-2024 Miscellaneous Notes SW- NST only. documented in this encounter [facility] 04-17-2024 Instructions Stefanie Hooper MA - 04/17/2024 2:00 PM EST SEQUENTIAL SCREENINGS The [facility] offers sequential screenings for women who are interested in screenings for chromosomal abnormalities and certain defects during a . The sequential screen combines ultrasound and blood tests to determine the risk of chromosomal abnormalities, including Down's Syndrome (Trisomy 21) and Trisomy 18, as well as open neural tube defects including spina bifida. Ultrasound examination is performed between 11 weeks and 13 weeks gestational age. Blood tests are drawn after the ultrasound and again later in the between 15 and 21 weeks gestational age. Please let your physician know if you are interested in this testing. It will require an appointment with our wastewater technician. This is not an ultrasound performed by a physician in our office during a routine visit. SIGNS AND SYMPTOMS OF LABOR 1. Contractions every 10 minutes or more often 2. Clear, pink, or brownish fluid (water) leaking from vagina 3. Feeling that baby is pushing down, pressure 4. Low, dull backache 5. Cramps that feel like a period 6. Cramps with or without diarrhea If you notice any of the above symptoms, contact our office at [phone] and ask to speak with a nurse. After hours, you can call doctors registry at [phone] OR call [facility] at [phone] and ask to have the doctor workers' compensation hearings officer paged. If you consider this an emergency, dial 9--1 or go to your nearest emergency department. NEED HELP? Are you dealing with a violent or abusive relationship? Are you a victim of rape or sexual assult? Call [facility] ([place]) 24 hour Crisis Hotline: 873.558.7775 or 401-989-1003. MANUAL Your Guide to a Healthy manual is now on-line. Visit [email or web address] to download your free copy documented in this encounter [facility] 04-11-2024 Progress note Formatting of t his note might be different from the original. S: Rosendo Roth is a 33 year old female who presents at 06/25/2024, by Ultrasound for a routine visit. Denies headache, visual changes, chest pain, shortness of breath, vaginal bleeding, leakage of fluid, or dysuria. Feeling well, no complaints. Good movement, No contractions O: See flow sheet Gen: No apparent distress Abd: Gravid, nontender TDAP today Declined LARC GCT today Plan for delivery at [facility] ASSESSMENT/PLAN: 1. 29 weeks gestation of - ICD9: V22.2, ICD10: Z3A.29 (primary diagnosis) 2. Supervision of high risk in second trimester - ICD9: V23.9, ICD10: O09.92 3. Need for vaccination - ICD9: V05.9, ICD10: Z23 Yajaira Serrano MD [facility] 04-11-2024 Miscellaneous Notes S: Rosendo Roth is a 33 year old female who presents at 06/25/2024, by Ultrasound for a routine visit. Denies headache, visual changes, chest pain, shortness of breath, vaginal bleeding, leakage of fluid, or dysuria. Feeling well, no complaints. Good movement, No contractions O: See flow sheet Gen: No apparent distress Abd: Gravid, nontender TDAP today Declined LARC GCT today Plan for delivery at SDU ASSESSMENT/PLAN: 1. 29 weeks gestation of - ICD9: V22.2, ICD10: Z3A.29 (primary diagnosis) 2. Supervision of high risk in second trimester - ICD9: V23.9, ICD10: O09.92 3. Need for vaccination - ICD9: V05.9, ICD10: Z23 Yajaira Serrano MD documented in this encounter [facility] 04-11-2024 Note HNO ID: [id number] Author: MARY LOPEZ MA Service: ? Author Type: Hospice Administrator Type: Progress Notes Filed: 04/11/2024 14:52 Note Text: Patient identified by name and date of . Rosendo Roth presents today for a vaccination of Tdap. Patient denies an allergy to latex: yes Patient denies a severe (life-threatening) allergy to a previous dose of Tdap, DTP, DTaP, DT or Td vaccine. Yes Patient denies history of epilepsy or neurological problems: Yes Patient is afebrile and denies being moderately or severely ill: Yes Patient denies history of Guillain-Raleigh Syndrome (a severe paralytic illness): Yes Tdap Adacel injection was given without incident. See immunizations for details of immunizations administered today. VIS sheet provided: Yes Provider Yajaira Serrano MD was present in office at time of injection. Mary Lopez MA [facility] 04-11-2024 History of Presen t illness Narrative Patient identified by name and date of . Rosendo Roth presents today for a vaccination of Tdap. Patient denies an allergy to latex: yes Patient denies a severe (life-threatening) allergy to a previous dose of Tdap, DTP, DTaP, DT or Td vaccine. Yes Patient denies history of epilepsy or neurological problems: Yes Patient is afebrile and denies being moderately or severely ill: Yes Patient denies history of Guillain-Raleigh Syndrome (a severe paralytic illness): Yes Tdap Adacel injection was given without incident. See immunizations for details of immunizations administered today. VIS sheet provided: Yes Provider Yajaira Serrano MD was present in office at time of injection. Mary Lopez MA documented in this encounter [facility] 04-11-2024 Instructions Mary Lopez MA - 04/11/2024 2:25 PM EST SEQUENTIAL SCREENINGS The [facility] offers sequential screenings for women who are interested in screenings for chromosomal abnormalities and certain defects during a . The sequential screen combines ultrasound and blood tests to determine the risk of chromosomal abnormalities, including Down's Syndrome (Trisomy 21) and Trisomy 18, as well as open neural tube defects including spina bifida. Ultrasound examination is performed between 11 weeks and 13 weeks gestational age. Blood tests are drawn after the ultrasound and again later in the between 15 and 21 weeks gestational age. Please let your physician know if you are interested in this testing. It will require an appointment with our wastewater technician. This is not an ultrasound performed by a physician in our office during a routine visit. SIGNS AND SYMPTOMS OF LABOR 1. Contractions every 10 minutes or more often 2. Clear, pink, or brownish fluid (water) leaking from vagina 3. Feeling that baby is pushing down, pressure 4. Low, dull backache 5. Cramps that feel like a period 6. Cramps with or without diarrhea If you notice any of the above symptoms, contact our office at [phone] and ask to speak with a nurse. After hours, you can call doctors registry at [phone] OR call [facility] at [phone] and ask to have the doctor workers' compensation hearings officer paged. If you consider this an emergency, dial 9-1-1 or go to your nearest emergency department. NEED HELP? Are you dealing with a violent or abusive relationship? Are you a victim of rape or sexual assult? Call [facility] ([place]) 24 hour Crisis Hotline: 912.160.2511 or 297-922-4880. MANUAL Your Guide to a Healthy manual is now on-line. Visit [email or web address] to download your free copy documented in this encounter [facility] 04-10-2024 Note Indication Evaluation of growth. Single umbilical artery; Suspected anomaly; Velamentous cord insertion Impression Follow-up assessment of growth in a complicated by hypothyroidism (synthroid), a velamentous placental cord insertion, and multiple anomalies (double bubble, single umbilical artery, prominent CSP; NIPS was risk-reducing for aneuploidy). - Single, live, intrauterine . - The biometry is consistent with the assigned gestational dating. - The EFW is 1318 g, at the 32%. AC is at the 35%. - A 22 x 8 mm hypoechoic interhemispheric cystic structure is visualized in the midline of the ASSESSMENT SPECIALIST superior to the thalami. The lesion is posterior to and continuous with the CSP. Blood flow within this structure was NOT visualized by color Doppler evaluation. Ventriculomegaly was NOT visualized. - Otherwise, no new malformations visualized on a limited survey as detailed below. - Amniotic fluid volume is normal amount with an MVP of 5 cm and ROSEANNA of 17.7 cm. - The placenta is anterior, fundal. BRIEF MFM CONSULT (with focal record review): The patient was counseled regarding the sonographic findings and the potential for non-visualized malformations. We reviewed that interhemispheric fluid collections may be developmental/physiologic (cavum septi pellucidi, cavum velum interpositum, or dilated cavum vergae) or pathologic (arachnoid cyst or other lesions). The sonographic findings today are most consistent with a dilated cavum vergae given the direct extension to the CSP; however an arachnoid cyst cannot be excluded. Serial assessment of growth (every 4 weeks) is planned - see prior note from Dr. Landa for complete details. Should this finding persist at~36 weeks, follow-up is recommended. All questions were addressed. Thank you for the referral. Recommendations As above Maternal Assessment Height 170 cm Height (ft) 5 ft Height (in) 7 in Physical Exam Initial weight (lb) 143 lb Initial BMI 22.40 kg/m Method Transabdominal ultrasound examination. View: Suboptimal view: limited by position Aly . Number of fetuses: 1 Dating GA by prior assessment 29 w + 1 d YUSUF by prior assessment: 06/25/2024 Ultrasound examination on: 04/10/2024 GA by U/S based upon: AC, BPD, Femur, HC GA by U/S 30 w + 0 d YUSUF by U/S: 06/19/2024 Assigned: based on stated YUSUF, selected on 03/17/2024 Assigned GA 29 w + 1 d Assigned YUSUF: 06/25/2024 General Evaluation Cardiac activity present. FHR 141 bpm. movements: present. Presentation: cephalic Placenta: Placental site: anterior, fundal Umbilical cord: Cord vessels: 2 vessel cord. Insertion site: velamentous insertion Amniotic fluid: Amount of AF: normal amount. MVP 5.0 cm. ROSEANNA 17.7 cm. Q1 4.0 cm, Q2 5.0 cm, Q3 4.9 cm, Q4 3.8 cm Growth Overview Exam date GA BPD (mm) HC (mm) AC (mm) FL (mm) HL (mm) EFW (g) 02/15/2024 21w 2d 55.4 95% 198.7 72% 172.6 73% 35.1 58% 33.2 44% 448 68% 03/17/2024 25w 5d 70.6 98% 252 81% 214.5 48% 45.9 47% 870 48% 04/10/2024 29w 1d 79.8 98% 289.6 87% 246.1 35% 52.1 18% 1318 32% Biometry Standard BPD 79.8 mm 32w 0d 98% Hadlock OFD 101.7 mm 29w 6d 82% Nicolaides HC 289.6 mm 31w 1d 87% Xiomy AC 246.1 mm 28w 6d 35% Hadlock Femur 52.1 mm 27w 6d 18% Xiomy EFW 1,318 g 28w 4d 32% Hadlock EFW (lb) 2 lb EFW (oz) 14 oz EFW by: Hadlock ([id number]) Extended Hedis Specialist 3.5 mm Extremities / Bony Struc FL / HC 0.18 Other Structures FHR 141 bpm Anatomy Lateral ventricles: normal Cavum septi pellucidi: normal Cerebellum: normal Cisterna magna: normal Head / Neck: Dilated cavum vergae as above Lips: normal Profile: normal Nose: normal 4-chamber view: normal RVOT view: normal LVOT view: normal 3-vessel view: normal Heart / Thorax Situs: situs solitus (normal) Diaphragm: normal Stomach: abnormal Kidneys: normal Bladder: normal Abdomen Stomach: double bubble sex: male Wants to know sex: yes Performed By: Cassy James RDMS Read By: Dante Melgar M.D. [facility] 03-26-2024 Note Indication Evaluation of growth; Single umbilical artery; Suspected anomaly; Velamentous cord insertion Impression - Single, live, intrauterine . - The biometry is consistent with the assigned gestational dating. - The EFW is 870 g, at the 48%. AC is at the 48%. - Amniotic fluid volume is normal amount with an MVP of 6.2 cm and ROSEANNA of 19.6 cm. - The placenta is anterior, fundal. - No malformations visualized on a limited survey as detailed below. Ultrasound findings - Double bubble sign with two anechoic communicating cystic intraabdominal structures. - Velamentous cord insertion near the superior edge of the placenta - Two vessel cord - Prominent CSP measuring at the upper limit of normal at 10 mm. - Normal intracranial structures Normal echocardiogram. Low risk NIPT with a fraction at 20%. Declined amniocentesis. Recommendations - Pediatric surgery consult was scheduled today - Monthly growth scan starting at 28 weeks - NICU consult at 28-32 weeks - Delivery at SDU at 39 weeks, earlier delivery is indicated for worsening maternal or conditions Maternal Assessment Height 170 cm Height (ft) 5 ft Height (in) 7 in Physical Exam Initial weight (lb) 143 lb Initial BMI 22.40 kg/m Method Transabdominal ultrasound examination Aly . Number of fetuses: 1 Dating GA by prior assessment 25 w + 5 d YUSUF by prior assessment: 06/25/2024 Ultrasound examination on: 03/17/2024 GA by U/S based upon: AC, BPD, Femur, HC GA by U/S 26 w + 5 d YUSUF by U/S: 06/18/2024 Assigned: based on stated YUSUF, selected on 03/17/2024 Assigned GA 25 w + 5 d Assigned YUSUF: 06/25/2024 General Evaluation Cardiac activity present. FHR 132 bpm. movements: present, present. Presentation: cephalic Placenta: Placental site: anterior, fundal Umbilical cord: Cord vessels: 2 vessel cord. Insertion site: velamentous insertion Amniotic fluid: Amount of AF: normal amount. MVP 6.2 cm. ROSEANNA 19.6 cm. Q1 4.1 cm, Q2 3.9 cm, Q3 5.4 cm, Q4 6.2 cm Growth Overview Exam date GA BPD (mm) HC (mm) AC (mm) FL (mm) HL (mm) EFW (g) 02/15/2024 21w 2d 55.4 95% 198.7 72% 172.6 73% 35.1 58% 33.2 44% 448 68% 03/17/2024 25w 5d 70.6 98% 252 81% 214.5 48% 45.9 47% 870 48% Biometry Standard BPD 70.6 mm 28w 2d 98% Hadlock OFD 88.3 mm 26w 2d 83% Nicolaides HC 252.0 mm 27w 0d 81% Xiomy AC 214.5 mm 26w 0d 48% Hadlock Femur 45.9 mm 25w 3d 47% Xiomy EFW 870 g 25w 5d 48% Hadlock EFW (lb) 1 lb EFW (oz) 15 oz EFW by: Hadlock ([id number]) Extended Hedis Specialist 6.0 mm Extremities / Bony Struc FL / HC 0.18 Other Structures FHR 132 bpm Anatomy Lateral ventricles: normal Cavum septi pellucidi: normal Cerebellum: normal Cisterna magna: normal 4-chamber view: normal RVOT view: normal LVOT view: normal 3-vessel view: normal Heart / Thorax Situs: situs solitus (normal) Diaphragm: normal Stomach: abnormal Kidneys: normal Bladder: normal Abdomen Stomach: double bubble sex: male Wants to know sex: yes Performed By: Emely Hare. RDMS Read By: Cordell Landa M.D. MATERNAL MEDICINE 03-21-2024 Telephone encounter Note Received fax from [employer]. Requesting 90 day supply of Levothyroxine 25 MCG and 50 MCG. Patient is coming in today for a lab draw. Do not sign refills until lab results come back. Pended 90 day supply---will wait till lab results come back to send into pharmacy. Noted in other TE for pended labs. [employer] 03-21-2024 Miscellaneous Notes Received fax from [employer]. Requesting 90 day supply of Levothyroxine 25 MCG and 50 MCG. Patient is coming in today for a lab draw. Do not sign refills until lab results come back. Pended 90 day supply---will wait till lab results come back to send into pharmacy. Noted in other TE for pended labs. documented in this encounter [facility] [employer] 03-17-2024 Note HNO ID: [id number] Author: CORDELL LANDA MD Service: ? Author Type: Physician Type: Progress Notes Filed: 03/26/2024 21:21 Note Text: [facility] OUTPATIENT VISIT DATE OUTPATIENT VISIT TYPE CONSULT REFERRING PROVIDER: Bridget Aguilar MD Recommendations from today's consultation will be conveyed through the electronic medical record. History of Present Illness: 33 year old at 25 weeks and 5 days with Estimated Date of Delivery: 06/25/24 presenting for consultation with Maternal- Medicine at the [facility] in the setting of double bubble sign and SUA. Her relevant histories have been updated and are reviewed below: US was performed today and revealed: - Single, live, intrauterine . - The biometry is consistent with the assigned gestational dating. - The EFW is 870 g, at the 48%. AC is at the 48%. - Amniotic fluid volume is normal amount with an MVP of 6.2 cm and ROSEANNA of 19.6 cm. - The placenta is anterior, fundal. - No malformations visualized on a limited survey as detailed below. Ultrasound findings - Double bubble sign with two anechoic communicating cystic intraabdominal structures. - Velamentous cord insertion near the superior edge of the placenta - Two vessel cord - Prominent CSP measuring at the upper limit of normal at 10 mm. - Normal intracranial structures Normal echocardiogram. Low risk NIPT with a fraction at 20%. Declined amniocentesis. Obstetric History: # 1 - Date: 08/12/22, Sex: Male, Weight: 7 lb 3 oz (3.26 kg), GA: 38w5d, Type: Vaginal, Spontaneous, Apgar1: None, Apgar5: None, Living: Living, Comments: 3rd degree laceration # 2 - Date: None, Sex: None, Weight: None, GA: None, Type: None, Apgar1: None, Apgar5: None, Living: None, Comments: None Past Medical History: PAST MEDICAL HISTORY Diagnosis Date anxiety/depression Exercise-induced asthma has not used an inhaler since 2021 Hypothyroidism IBS (irritable bowel syndrome) no issues since 2018 depression Third degree perineal laceration Past Surgical History: PAST SURGICAL HISTORY Procedure Laterality Date ENLARGE BREAST WITH IMPLANT PAST SURGICAL HISTORY OF wisdom teeth PAST SURGICAL HISTORY OF mole excision x 2 TONSILLECTOMY AND ADENOIDECTOMY Medications: Current Outpatient Medications on File Prior to Visit Medication Sig ondansetron orally disintegrating (ZOFRAN ODT) 4 mg disintegrating tablet Take 1 tablet by mouth every 8 hours as needed. levothyroxine (SYNTHROID) 50 mcg tablet Take 1 tablet by mouth two times a week. levothyroxine (SYNTHROID) 25 mcg tablet Take 25 mcg by mouth five times a week. VIT 49-IRON FUM-FOLIC ORAL Take by mouth. sertraline (ZOLOFT) 50 mg tablet Take 50 mg by mouth once daily. aspirin, enteric coated (ECOTRIN LOW STRENGTH) 81 mg EC tablet Take 1 tablet by mouth once daily. No current facility-administered medications on file prior to visit. Allergies: ALLERGIES Allergen Reactions Animal Dander Other: See Comments Grass Pollen Other: See Comments House Dust Other: See Comments Social History: Social History Tobacco Use Smoking status: Never Passive exposure: Never Smokeless tobacco: Never Vaping Use Vaping status: Never Used Substance Use Topics Alcohol use: Not Currently Drug use: Not Currently Types: Marijuana Comment: no use since 06/2023 Family History: FAMILY HISTORY Problem Relation Age of Onset No Known Problems Mother No Known Problems Father No Known Problems Sister No Known Problems Brother No Known Problems Maternal Grandmother Dementia Maternal Grandfather Lung Cancer Paternal Grandmother Dementia Paternal Grandfather No Known Problems Son Review of Systems: Negative other than as noted above. 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 Low risk NIPT. Declined amniocentesis. Discussion We reviewed that a ?double bubble? sign on ultrasound is a hallmark finding suggestive of duodenal atresia, a congenital obstruction of the duodenum that prevents normal passage of amniotic fluid through the gastrointestinal tract. However, the double bubble sign is not exclusive to duodenal atresia and can also be seen in other conditions, including duodenal stenosis or annular pancreas, where pancreatic tissue encircles and compresses the duodenum, leading to obstruction. Other potential causes include intestinal malrotation with volvulus, where abnormal rotation of (more content not included)... [facility] 03-17-2024 History of Presen t illness Narrative Images from the original note were not included. [facility] OUTPATIENT VISIT DATE OUTPATIENT VISIT TYPE CONSULT REFERRING PROVIDER: Bridget Aguilar MD Recommendations from today's consultation will be conveyed through the electronic medical record. History of Present Illness: 33 year old at 25 weeks and 5 days with Estimated Date of Delivery: 06/25/24 presenting for consultation with Maternal- Medicine at the [facility] in the setting of double bubble sign and SUA. Her relevant histories have been updated and are reviewed below: US was performed today and revealed: - Single, live, intrauterine . - The biometry is consistent with the assigned gestational dating. - The EFW is 870 g, at the 48%. AC is at the 48%. - Amniotic fluid volume is normal amount with an MVP of 6.2 cm and ROSEANNA of 19.6 cm. - The placenta is anterior, fundal. - No malformations visualized on a limited survey as detailed below. Ultrasound findings - Double bubble sign with two anechoic communicating cystic intraabdominal structures. - Velamentous cord insertion near the superior edge of the placenta - Two vessel cord - Prominent CSP measuring at the upper limit of normal at 10 mm. - Normal intracranial structures Normal echocardiogram. Low risk NIPT with a fraction at 20%. Declined amniocentesis. Obstetric History: # 1 - Date: 08/12/22, Sex: Male, Weight: 7 lb 3 oz (3.26 kg), GA: 38w5d, Type: Vaginal, Spontaneous, Apgar1: None, Apgar5: None, Living: Living, Comments: 3rd degree laceration # 2 - Date: None, Sex: None, Weight: None, GA: None, Type: None, Apgar1: None, Apgar5: None, Living: None, Comments: None Past Medical History: PAST MEDICAL HISTORY Diagnosis Date anxiety/depression Exercise-induced asthma has not used an inhaler since 2021 Hypothyroidism IBS (irritable bowel syndrome) no issues since 2018 depression Third degree perineal laceration Past Surgical History: PAST SURGICAL HISTORY Procedure Laterality Date ENLARGE BREAST WITH IMPLANT PAST SURGICAL HISTORY OF wisdom teeth PAST SURGICAL HISTORY OF mole excision x 2 TONSILLECTOMY & ADENOIDECTOMY <AGE 13 Medications: Current Outpatient Medications on File Prior to Visit Medication Sig ondansetron orally disintegrating (ZOFRAN ODT) 4 mg disintegrating tablet Take 1 tablet by mouth every 8 hours as needed. levothyroxine (SYNTHROID) 50 mcg tablet Take 1 tablet by mouth two times a week. levothyroxine (SYNTHROID) 25 mcg tablet Take 25 mcg by mouth five times a week. VIT 49-IRON FUM-FOLIC ORAL Take by mouth. sertraline (ZOLOFT) 50 mg tablet Take 50 mg by mouth once daily. aspirin, enteric coated (ECOTRIN LOW STRENGTH) 81 mg EC tablet Take 1 tablet by mouth once daily. No current facility-administered medications on file prior to visit. Allergies: ALLERGIES Allergen Reactions Animal Dander Other: See Comments Grass Pollen Other: See Comments House Dust Other: See Comments Social History: Social History Tobacco Use Smoking status: Never Passive exposure: Never Smokeless tobacco: Never Vaping Use Vaping status: Never Used Substance Use Topics Alcohol use: Not Currently Drug use: Not Currently Types: Marijuana Comment: no use since 06/2023 Family History: FAMILY HISTORY Problem Relation Age of Onset No Known Problems Mother No Known Problems Father No Known Problems Sister No Known Problems Brother No Known Problems Maternal Grandmother Dementia Maternal Grandfather Lung Cancer Paternal Grandmother Dementia Paternal Grandfather No Known Problems Son Review of Systems: Negative other than as noted above. 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 Low risk NIPT. Declined amniocentesis. Discussion We reviewed that a double bubble sign on ultrasound is a hallmark finding suggestive of duodenal atresia, a congenital obstruction of the duodenum that prevents normal passage of amniotic fluid through the gastrointestinal tract. However, the double bubble sign is not exclusive to duodenal atresia and can also be seen in other conditions, including duodenal stenosis or annular pancreas, where pancreatic tissue encircles and compresses the duodenum, leading to obstruction. Other potential causes include intestinal malrotation with volvulus, where abnormal rotation of the intestines causes a functional blockage, and duodenal webs or stenosis, which represent partial obstructions rather than complete atresia. While duodenal atresia is often an isolated finding, approximately 20-30% of cases are associated with Down syndrome (Trisomy 21), Low risk NIPT is reported. The increased risk of polyhydramnios and increased risk of PTL or pPROM was discussed. The presence of a single umbilical artery (SUA) further raises suspicion for an underlying genetic or structural anomaly, as SUA can be associated with congenital heart defects, renal abnormalities, or broader syndromic conditions. While SUA alone does not confirm a genetic syndrome, its presence alongside duodenal atresia warrants careful evaluation for trisomies (e.g., Trisomy 21, 18) and other chromosomal anomalies including CNVs. The increased risk of FGR in association with SUA was discussed; follow up serial growth scans will be scheduled. I discussed with the family that from a genetic standpoint, noninvasive testing (NIPT) is a screening test that primarily detects common aneuploidies, such as Trisomy 21, 18, and 13. However, NIPT cannot exclude all genetic syndromes, as it does not detect single-gene disorders, smaller chromosomal deletions/duplications, or other rare genetic syndromes that may be associated with gastrointestinal and vascular anomalies. While you have declined amniocentesis, which would allow for a definitive genetic diagnosis through chromosomal microarray (OPTIMIZATION MANAGER) or whole-exome sequencing if indicated, we can continue with detailed ultrasound monitoring to assess for additional structural abnormalities that may further suggest a syndromic association. Summary of Recommendations: - Pediatric surgery consult was scheduled today - Monthly growth scan starting at 28 weeks - NICU consult at 28-32 weeks - Delivery at SDU at 39 weeks, earlier delivery is indicated for worsening maternal or conditions - labor precautions were given Thank you for allowing us to participate in the care of this patient. Please do not hesitate to contact our office with any questions or concerns. I spent a total of 55 minutes on the date of the service which included preparing to see the patient, [id number] patient care, completing clinical documentation, obtaining and/or reviewing separately obtained history, performing a medically appropriate examination, and counseling and educating the patient/family/caregiver. SIGNATURE: Cordell Landa MD PATIENT NAME: Rosendo Roth DATE: March 26, 2024 TIME: 8:54 PM documented in this encounter [facility] 03-17-2024 Note HNO ID: [id number] Author: MARCELO CERVANTES MD Service: ? 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 We discussed the various potential diagnoses and scenarios, as well as the different surgical options and possible complications related to the double bubble. Past Medical History PAST MEDICAL HISTORY Diagnosis Date anxiety/depression Exercise-induced asthma has not used an inhaler since 2021 Hypothyroidism IBS (irritable bowel syndrome) no issues since 2018 depression Third degree perineal laceration Past Surgical History PAST SURGICAL HISTORY Procedure Laterality Date ENLARGE BREAST WITH IMPLANT PAST SURGICAL HISTORY OF wisdom teeth PAST SURGICAL HISTORY OF mole excision x 2 TONSILLECTOMY AND ADENOIDECTOMY Allergy ALLERGIES Allergen Reactions Animal Dander Other: See Comments Grass Pollen Other: See Comments House Dust Other: See Comments Medications: Current Outpatient Medications Medication Sig Dispense Refill ondansetron orally disintegrating (ZOFRAN ODT) 4 mg disintegrating tablet Take 1 tablet by mouth every 8 hours as needed. 20 tablet 1 levothyroxine (SYNTHROID) 50 mcg tablet Take 1 tablet by mouth two times a week. levothyroxine (SYNTHROID) 25 mcg tablet Take 25 mcg by mouth five times a week. aspirin, enteric coated (ECOTRIN LOW STRENGTH) 81 mg EC tablet Take 1 tablet by mouth once daily. 90 tablet 3 VIT 49-IRON FUM-FOLIC ORAL Take by mouth. sertraline (ZOLOFT) 50 mg tablet Take 50 mg by mouth once daily. No current facility-administered medications for this visit. (Not in a hospital admission) Social History Tobacco Use Smoking status: Never Passive exposure: Never Smokeless tobacco: Never Vaping Use Vaping status: Never Used Substance Use Topics Alcohol use: Not Currently Drug use: Not Currently Types: Marijuana Comment: no use since 06/2023 Family History: FAMILY HISTORY Problem Relation Age of Onset No Known Problems Mother No Known Problems Father No Known Problems Sister No Known Problems Brother No Known Problems Maternal Grandmother Dementia Maternal Grandfather Lung Cancer Paternal Grandmother Dementia Paternal Grandfather No Known Problems Son Anesthesia: Patient has never received anesthesia No family history of anesthesia complications. 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 Cervantes Signature: Marcelo Cervantes Date: 03/17/2024 Time: 12:39 PM Attending Note I evaluated the patient and personally participated in the singh components of the history and physical. I have edited the resident's note, and I agree with the resident's findings and plan as documented. I have discussed the case and management of the patient's care with the resident. The patient's PCP and/or the consulting physician will be contacted personally, via electronic or postal mail to notify them of this visit and any new recommendations. I spent xxx minutes reviewing the charts and with the patient Signature: Marcelo Cervantes MD Date: March 17, 2024 Time: 12:43 PM I spent a total of 40 minutes on the date of the service which included preparing to see the patient, [id number] patient care, completing clinical documentation, obtaining and/or reviewing separately obtained history, and counseling and educating the patient/family/caregiver. [facility] 03-17-2024 History of Presen t illness Narrative Images from the original note were not included. 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 We discussed the various potential diagnoses and scenarios, as well as the different surgical options and possible complications related to the double bubble. Past Medical History PAST MEDICAL HISTORY Diagnosis Date anxiety/depression Exercise-induced asthma has not used an inhaler since 2021 Hypothyroidism IBS (irritable bowel syndrome) no issues since 2018 depression Third degree perineal laceration Past Surgical History PAST SURGICAL HISTORY Procedure Laterality Date ENLARGE BREAST WITH IMPLANT PAST SURGICAL HISTORY OF wisdom teeth PAST SURGICAL HISTORY OF mole excision x 2 TONSILLECTOMY & ADENOIDECTOMY <AGE 13 Allergy ALLERGIES Allergen Reactions Animal Dander Other: See Comments Grass Pollen Other: See Comments House Dust Other: See Comments Medications: Current Outpatient Medications Medication Sig Dispense Refill ondansetron orally disintegrating (ZOFRAN ODT) 4 mg disintegrating tablet Take 1 tablet by mouth every 8 hours as needed. 20 tablet 1 levothyroxine (SYNTHROID) 50 mcg tablet Take 1 tablet by mouth two times a week. levothyroxine (SYNTHROID) 25 mcg tablet Take 25 mcg by mouth five times a week. aspirin, enteric coated (ECOTRIN LOW STRENGTH) 81 mg EC tablet Take 1 tablet by mouth once daily. 90 tablet 3 VIT 49-IRON FUM-FOLIC ORAL Take by mouth. sertraline (ZOLOFT) 50 mg tablet Take 50 mg by mouth once daily. No current facility-administered medications for this visit. (Not in a hospital admission) Social History Tobacco Use Smoking status: Never Passive exposure: Never Smokeless tobacco: Never Vaping Use Vaping status: Never Used Substance Use Topics Alcohol use: Not Currently Drug use: Not Currently Types: Marijuana Comment: no use since 06/2023 Family History: FAMILY HISTORY Problem Relation Age of Onset No Known Problems Mother No Known Problems Father No Known Problems Sister No Known Problems Brother No Known Problems Maternal Grandmother Dementia Maternal Grandfather Lung Cancer Paternal Grandmother Dementia Paternal Grandfather No Known Problems Son Anesthesia: Patient has never received anesthesia No family history of anesthesia complications. 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 Cervantes Signature: Marcelo Cervantes Date: 03/17/2024 Time: 12:39 PM Attending Note I evaluated the patient and personally participated in the singh components of the history and physical. I have edited the resident's note, and I agree with the resident's findings and plan as documented. I have discussed the case and management of the patient's care with the resident. The patient's PCP and/or the consulting physician will be contacted personally, via electronic or postal mail to notify them of this visit and any new recommendations. I spent xxx minutes reviewing the charts and with the patient Signature: Marcelo Cervantes MD Date: March 17, 2024 Time: 12:43 PM I spent a total of 40 minutes on the date of the service which included preparing to see the patient, [id number] patient care, completing clinical documentation, obtaining and/or reviewing separately obtained history, and counseling and educating the patient/family/caregiver. documented in this encounter [facility] 03-14-2024 Progress note Formatting of t his note might be different from the original. KJ - VB No. LOF No. CTXS No. Movement: present. Other c/o: No. Medication list reviewed. Physical Exam See Flow Sheet Gen: no accute distress, well appearing Abd: soft, nontender, gravid A/P 25w2d Estimated Date of Delivery: 06/25/24 Labs: 28 week labs ordered Suspected anomaly and single umbilical artery - MFM consult & US this week. Following with care team. Hypothyroid - followed by pcp FM & PTL precautions reviewed. Jameel iGll MD [facility] 03-14-2024 Miscellaneous Notes KJ - VB No. LOF No. CTXS No. Movement: present. Other c/o: No. Medication list reviewed. Physical Exam See Flow Sheet Gen: no accute distress, well appearing Abd: soft, nontender, gravid A/P 25w2d Estimated Date of Delivery: 06/25/24 Labs: 28 week labs ordered Suspected anomaly and single umbilical artery - MFM consult & US this week. Following with care team. Hypothyroid - followed by pcp FM & PTL precautions reviewed. Jameel Gill MD documented in this encounter [facility] 03-14-2024 Mary Shook MA - 03/14/2024 10:44 AM EST SEQUENTIAL SCREENINGS The [facility] offers sequential screenings for women who are interested in screenings for chromosomal abnormalities and certain defects during a . The sequential screen combines ultrasound and blood tests to determine the risk of chromosomal abnormalities, including Down's Syndrome (Trisomy 21) and Trisomy 18, as well as open neural tube defects including spina bifida. Ultrasound examination is performed between 11 weeks and 13 weeks gestational age. Blood tests are drawn after the ultrasound and again later in the between 15 and 21 weeks gestational age. Please let your physician know if you are interested in this testing. It will require an appointment with our wastewater technician. This is not an ultrasound performed by a physician in our office during a routine visit. SIGNS AND SYMPTOMS OF LABOR 1. Contractions every 10 minutes or more often 2. Clear, pink, or brownish fluid (water) leaking from vagina 3. Feeling that baby is pushing down, pressure 4. Low, dull backache 5. Cramps that feel like a period 6. Cramps with or without diarrhea If you notice any of the above symptoms, contact our office at [phone] and ask to speak with a nurse. After hours, you can call doctors registry at [phone] OR call [facility] at [phone] and ask to have the doctor workers' compensation hearings officer paged. If you consider this an emergency, dial 2-0-3 or go to your nearest emergency department. NEED HELP? Are you dealing with a violent or abusive relationship? Are you a victim of rape or sexual assult? Call [facility] ([facility] 24 hour Crisis Hotline: 481.598.1019 or 919-971-5415. MANUAL Your Guide to a Healthy manual is now on-line. Visit [email or web address] to download your free copy documented in this encounter [facility] 03-01-2024 History of Presen t illness Narrative Summary: Anomalies REPRODUCTIVE GENETIC COUNSELING INITIAL VISIT Rosendo Roth : 1990 Above identifiers confirmed by Kelsy Ochoa, MS, LGC Consultation requested by: Arlen Duran MD Date of clinic visit: March 01, 2024 Aluminizer offered/present: No Ms. Roth is seen via a virtual Distance Health visit today via [employer] platform per patient choice. The visit is conducted synchronously in real-time. I have communicated my name and active licensure. The patient's identity and physical location were verified at the time of this visit. Either the patient or their legal patient registration representative has been informed of the risks and benefits of -- and alternatives to -- treatment through a remote evaluation and consents to proceed with the evaluation remotely. 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 She attended today's visit alone. REPRODUCTIVE HISTORY: Currently : Yes / 23w3d (by US) LMP: 09/11/2023 YUSUF: 06/25/2024 history: . 07/2022: 38w5d vaginal delivery, male, 7 pounds 3 ounces.The couple's son is 1.5 years old and in good health with no developmental concerns. Of note, he did require a tongue/lip release as well as PE tube placement. 2. Current . Ms. Rosendo Roth's Carrier Screen Results: Not performed. Discussed today and declined at this time. exposures: - vitamins or other folate supplementation: Yes - Prescription medicines: Synthroid, Zoloft - OTC medicines, herbal medicines, other supplements: No - Tobacco, alcohol, or illicit drugs: No - Maternal infections or fevers: No - Other known/suspected human teratogens: No Aneuploidy screening: Completed. - Noninvasive screening is consistent with a negative result for trisomies 13, 18 and 21 as well as sex chromosome aneuploidy. sex is consistent with male. Ultrasounds: - Dating scan at 8w6d gestation by LMP (performed 11/12/2023): 7w5d by scan. New YUSUF 06/25/2024 established. - First trimester anatomy scan not performed. - Anatomy scan at 21w2d gestation (performed 02/15/2024): 22w1d by scan. - Single, live, intrauterine . - biometry is consistent with the established gestational age. - There is a 2-vessel umbilical cord (single umbilical artery) - There is a velamentous cord insertion - In the abdomen there are two adjacent fluid-filled echolucent structures, or a double bubble appearance - No other malformations were visualized on a detailed anatomic survey, although some anatomical structures were suboptimally seen as detailed below. CVS: Not Applicable Amniocentesis: Discussed today and declined. complications: - Maternal diabetes, hypertension, seizures, other illness: No - Vaginal bleeding, labor, other complications: No - Decreased movement: Unknown SIGNIFICANT PAST MEDICAL/SURGICAL HISTORIES: Ms. Roth reports a personal medical history notable for anxiety, depression, hypothyroidism, IBS, post- depression and exercise-induced asthma. Her surgical history is notable for breast augmentation, wisdom teeth extraction, mole excision x2 and tonsilloadenoidectomy. FAMILY HISTORY: A 3-generation pedigree was obtained for the patient and her partner and will be scanned into patient's EMR. Of note: - Genetic and/or Inherited Disease: None - Common Disorders: Brother, mother and maternal grandmother reported to have a heart murmur. Her mother may also have valve regurgitation and her grandmother had cardiac valve surgery later in life. Ms. Roth's father and paternal grandfather are reported to have depression and anxiety and a paternal uncle at 18 years in a motor vehicle accident. - Defects: None - Seizures: None - Recurrent Loss/Infertility: None - MR/DD/Autism: None - : None - Other:None Ms. Roth's partner, Mr. Cruzito Roth, is 31 years old, with possible high blood pressure. His family history is notable for his mother with a back/spine issue (possible growths?), father with high blood pressure and paternal female first cousin who had multiple losses including a second trimester demise. - Patient's ethnicity: [place]i, Albanian - Partner's ethnicity: [place]i, Northern - Patient and/or partner did not report -Macanese, , Mediterranean, Ashkenazi Christian and/or Croatian-Northern Irish/Cajun ancestries unless noted above. - Patient and partner are NOT consanguineous The remainder of the known family history is negative for infertility, recurrent loss, stillbirth, unexplained infant , defects, malformation syndromes, chromosomal abnormalities, metabolic disorders, developmental delay, intellectual disability, known or suspected genetic diseases, and consanguinity except as noted above and on the formal pedigree. GENETIC COUNSELING/DISCUSSION: Ms. 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 Each of these findings was reviewed today. DUODENAL ATRESIA Duodenal atresia is a defect where the first part of the baby's small intestine (duodenum) does not develop properly. The duodenum allows the contents from the stomach to pass into the small intestine for digestion. Babies that have duodenal atresia have an obstruction or blockage within the duodenum that prevents the contents of the stomach from passing. This can cause swelling of the baby's abdomen and excessive vomiting at . Surgery is performed immediately to correct the blockage and allow for normal digestion. Duodenal atresia is seen in approximately 1 in 10,000 babies at . Associated anomalies occur in approximately 50% of individuals with duodenal atresia, with trisomy 21 occurring in 30-40% of cases. Abnormalities can include skeletal defects (vertebral, rib, sacral agenesis, radial anomalies, clubfoot), gastrointestinal abnormalities (annular pancreas, esophageal atresia, TEF, intestinal malrotation, Meckel's diverticulum, anal atresia), cardiac malformations and renal defects. While duodenal atresia is typically sporadic there have been rare reports of autosomal dominant inheritance in the medical literature. Case reports of families with more than one child with duodenal atresia have been reported, although older literature notes that many of these cases included consanguineous parents, suggesting an autosomal recessive inheritance pattern. Copy number variants may also play role in some cases. Evin syndrome is characterized by microcephaly and limb malformations with one in three affected individuals demonstrating esophageal or duodenal atresia. Vertebral anomalies, cardiac malformations and deafness have been noted in some individuals. Mtdc-oy-eeqstnpi learning disabilities and dysmorphic features (short palpebral fissures, micrognathia) have also been reported. Evin syndrome type 1 is caused by pathogenic variants in the MYCN gene and follows an autosomal dominant pattern of inheritance. SINGLE UMBILICAL ARTERY (TWO-VESSEL UMBILICAL CORD) Typically, an umbilical cord is made up of 3 vessels; two arteries and one vein. A single umbilical artery (SUA) occurs when there is only one artery and one vein. Single umbilical artery pregnancies are reported in up to 1% of aly pregnancies and up to 5% of multiple pregnancies (twins, triplets or more) worldwide. Most babies with SUA are born healthy without any additional medical complications. Those with a SUA; however, do have a higher risk for other abnormalities on ultrasound including problems in the heart and kidneys, and in the presence of additional findings, are at an increased chance for an underlying chromosomal abnormality. When an SUA is an isolated finding, there does not appear to be an increased chance for a chromosome abnormality. In some studies, SUA has been associated with other complications such as growth restriction while others have shown there is no association. Given the conflicting evidence, current recommendations are to evaluate growth in the third triester with weekly surveillance beginning at 36 weeks gestation. SCREENING I discussed that the risk for chromosome abnormalities increases with maternal age. I reviewed the specific features of common chromosome abnormalities, including Down syndrome (trisomy 21), trisomy 18 and trisomy 13 and sex chromosome aneuploidy. Ms. Roth's age-related chance to have a baby with a chromosome abnormality at is 1:286 (0.3%%). I reviewed the benefits and limitations of screening and diagnostic tests. Screening tests can provide a risk assessment specific to the for certain chromosome abnormalities, but cannot definitively diagnose or exclude a chromosome abnormality. Ms. Roth previously had noninvasive screening (NIPS) performed with a ``negative result for trisomy 13, 18 and 21, as well as sex chromosome aneuploidy. The sex of the fetus was reported as male. asked if given her negative noninvasive screen (NIPS), if there would still be a concern for Down syndrome in this ? I reviewed the screening nature of NIPS and discussed that while the negative predictive value of the test is quite good, it is a screening test, and thus there would always be some residual risk remaining for a Down syndrome. I reviewed that diagnostic testing, such as amniocentesis, would be the only way to know for sure, before , if a baby has Down syndrome. Amniocentesis is an invasive procedure typically performed at 16 weeks or later, for which amniotic fluid is obtained for the purpose of chromosome analysis, microarray or other genetic conditions. The risk of loss associated with amniocentesis is generally estimated to be less than half a percent. Ms. Roth was offered diagnostic testing during today's appointment and she declined. She stated that if the baby had Down syndrome, it would not impact management. It is important to note that there is no screening or diagnostic testing that can detect all forms of defects or intellectual disability. CARRIER SCREENING Discussed the options of carrier screening for ACOG recommended conditions, expanded carrier screening for 267 conditions, or more comprehensive carrier screening through a 500+ gene panel, which is recommended for consanguineous couples and couples with a family history of specific conditions, but may be considered for information-seeking couples. Reviewed autosomal recessive and X-linked inheritance as well as the benefits, risks, and limitations of the screening. Discussed the associated costs and turn around times. Discussed the option of stepwise versus concurrent screening. Ms. Roth declined all carrier screening options at this time. 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 2) The association between duodenal atresia and SUA and chromosomal abnormalities, such as Down syndrome, was reviewed. 3) Noninvasive screening is consistent with a negative result. 4) echocardiogram, performed yesterday, is within normal limits. 5) Amniocentesis was declined. 6) Follow-up anatomy and consultation with [facility], is scheduled for 03/17/2024. 7) Carrier screening was declined. Thank you for allowing me to participate in Ms. Roth's care. Please feel free to contact me if either you or the family has questions, or concerns. The patient was seen for a total of 30 minutes, greater than 50% of which was spent [id number] counseling. This plan is being carried out under the oversight of Dr. Marcy Bhatt. This note will also be sent to the referring provider via the electronic medical record. Kelsy Ochoa MS, [facility] Licensed, Certified Genetic Counselor EPIC CC: AIDA Pickett and Referring Physician Esmer Crowley RN and Pastrycook'S Assistant Dr. Jameel Gill, OB Dr. Marcy Bhatt (Marketing Rep) documented in this encounter [facility] 03-01-2024 Note HNO ID: [id number] Author: KELSY OCHOA [facility] Service: ? Author Type: Genetic Counselor Type: Progress Notes Filed: 03/15/2024 11:24 Note Text: Summary: Anomalies REPRODUCTIVE GENETIC COUNSELING INITIAL VISIT Rosendo oRth : 1990 Above identifiers confirmed by Kelsy Ochoa MS, [facility] Consultation requested by: Arlen Duran MD Date of clinic visit: March 01, 2024 Aluminizer offered/present: No Ms. Roth is seen via a virtual Distance Health visit today via [employer] platform per patient choice. The visit is conducted synchronously in real-time. I have communicated my name and active licensure. The patient's identity and physical location were verified at the time of this visit. Either the patient or their legal patient registration representative has been informed of the risks and benefits of -- and alternatives to -- treatment through a remote evaluation and consents to proceed with the evaluation remotely. 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 She attended today's visit alone. REPRODUCTIVE HISTORY: Currently : Yes / 23w3d (by US) LMP: 09/11/2023 YUSUF: 06/25/2024 history: 07/2022: 38w5d vaginal delivery, male, 7 pounds 3 ounces.The couple's son is 1.5 years old and in good health with no developmental concerns. Of note, he did require a tongue/lip release as well as PE tube placement. 2. Current . Ms. Rosendo Roth's Carrier Screen Results: Not performed. Discussed today and declined at this time. exposures: - vitamins or other folate supplementation: Yes - Prescription medicines: Synthroid, Zoloft - OTC medicines, herbal medicines, other supplements: No - Tobacco, alcohol, or illicit drugs: No - Maternal infections or fevers: No - Other known/suspected human teratogens: No Aneuploidy screening: Completed. - Noninvasive screening is consistent with a negative result for trisomies 13, 18 and 21 as well as sex chromosome aneuploidy. sex is consistent with male. Ultrasounds: - Dating scan at 8w6d gestation by LMP (performed 11/12/2023): 7w5d by scan. New YUSUF 06/25/2024 established. - First trimester anatomy scan not performed. - Anatomy scan at 21w2d gestation (performed 02/15/2024): 22w1d by scan. - Single, live, intrauterine . - biometry is consistent with the established gestational age. - There is a 2-vessel umbilical cord (single umbilical artery) - There is a velamentous cord insertion - In the abdomen there are two adjacent fluid-filled echolucent structures, or a double bubble appearance - No other malformations were visualized on a detailed anatomic survey, although some anatomical structures were suboptimally seen as detailed below. CVS: Not Applicable Amniocentesis: Discussed today and declined. complications: - Maternal diabetes, hypertension, seizures, other illness: No - Vaginal bleeding, labor, other complications: No - Decreased movement: Unknown SIGNIFICANT PAST MEDICAL/SURGICAL HISTORIES: Ms. Roth reports a personal medical history notable for anxiety, depression, hypothyroidism, IBS, post- depression and exercise-induced asthma. Her surgical history is notable for breast augmentation, wisdom teeth extraction, mole excision x2 and tonsilloadenoidectomy. FAMILY HISTORY: A 3-generation pedigree was obtained for the patient and her partner and will be scanned into patient's EMR. Of note: - Genetic and/or Inherited Disease: None - Common Disorders: Brother, mother and maternal grandmother reported to have a heart murmur. Her mother may also have valve regurgitation and her grandmother had cardiac valve surgery later in life. Ms. Roth's father and paternal grandfather are reported to have depression and anxiety and a paternal uncle at 18 years in a motor vehicle accident. - Defects: None - Seizures: None - Recurrent Loss/Infertility: None - MR/DD/Autism: None - : None - Other:None Ms. Roth's partner, Mr. Cruzito Roth, is 31 years old, with possible high blood pressure. His family history is notable for his mother with a back/spine issue (possible growths?), father with high blood pressure and paternal female first cousin who had multiple losses including a second trimester demise. - Patient's ethnicity: Kuwaiti, Albanian - Partner's ethnicity: Kuwaiti, Northern - Patient and/or partner did not report -Macanese, , Mediterranean, Ashkenazi Christian and/or Fr (more content not included)... [facility] 02-29-2024 Note HNO ID: [id number] Author: SAULO PANIAGUA MD Service: ? Author Type: Physician Type: Progress Notes Filed: 03/01/2024 10:18 Note Text: Ms. Eliana Simpson CLIENT CONSULTANT COSMETICIAN NAME: Rosendo Roth [facility] Number.: [id number] Date of : 1990 Date of Visit: February 29, 2024 Dear Ms. Simpson: Ms. Rosendo Roth was seen for echocardiogram and pediatric cardiology consultation on February 29, 2024. She is a 33 year old woman, referred due to double bubble and single umbilical artery seen on ultrasound. She herself has no significant past medical history. There is no family history of congenital heart disease. echocardiogram on February 29, 2024 at 23 weeks 2 days gestation shows atrial situs solitus with levocardia. SVC and IVC return normally to the right atrium. One right and one left pulmonary vein were seen returning normally into the left atrium. The atria were normal in size and there was normal right to left shunting at the atrial level. The left and right ventricles were normal in size and shortening. No ventricular hypertrophy. The ventricular septum appeared intact. Normal mitral and tricuspid valves without significant regurgitation. The left and right ventricular outflow tracts were widely patent. The aortic and ductal arches were widely patent. Pulmonary arteries appear to be confluent but may be roberto/cross in origin (normal variant.) heart rate and rhythm were regular and no pericardial effusion was seen. Normal Doppler of umbilical artery, umbilical vein, ductus venosus. In summary, the echocardiogram today showed normal intracardiac anatomy with normal ventricular function and normal heart rate and rhythm. We discussed these findings with Ms. Rosendo Roth. In addition, the limitations of the echocardiogram and echocardiography in general, including the inability to exclude ASDs, some VSDs, minor valvar abnormalities, partial anomalous pulmonary venous return, persistent patent ductus arteriosus, and coarctation of the aorta, were explained. Based on these data we did not recommend any specific further or cardiac evaluation, though we would be happy to see her back should new concerns arise. Thank you for allowing me to participate in the care of your patient and please do not hesitate to contact me if I can be any further assistance. During this patient visit I have reviewed prior notes and imaging including from referring maternal medicine specialists, devoted time to counseling/coordination of care regarding results of the echocardiogram, clincal manifestations of the identified disease, prognosis, test results and treatment options, formulated and provided my recommendations to other caregivers by verbal and written communication as appropriate and assisted in coordination of care as needed. I spent a total of 55 minutes on the date of the service which included preparing to see the patient, [id number] patient care, completing clinical documentation, obtaining and/or reviewing separately obtained history, performing a medically appropriate examination, counseling and educating the patient/family/caregiver, ordering medications, tests, or procedures, communicating with other HCPs (not separately reported), independently interpreting results (not separately reported), communicating results to the patient/family/caregiver, and care coordination (not separately reported). Sincerely, Dr. Saulo Paniagua [facility] 02-29-2024 History of Presen t illness Narrative Ms. Eliana Simpson CLIENT CONSULTANT COSMETICIAN NAME: Rosendo Roth CLINIC Number.: [id number] Date of : 1990 Date of Visit: February 29, 2024 Dear Tatiana: Ms. Rosendo Roth was seen for echocardiogram and pediatric cardiology consultation on February 29, 2024. She is a 33 year old woman, referred due to double bubble and single umbilical artery seen on ultrasound. She herself has no significant past medical history. There is no family history of congenital heart disease. echocardiogram on February 29, 2024 at 23 weeks 2 days gestation shows atrial situs solitus with levocardia. SVC and IVC return normally to the right atrium. One right and one left pulmonary vein were seen returning normally into the left atrium. The atria were normal in size and there was normal right to left shunting at the atrial level. The left and right ventricles were normal in size and shortening. No ventricular hypertrophy. The ventricular septum appeared intact. Normal mitral and tricuspid valves without significant regurgitation. The left and right ventricular outflow tracts were widely patent. The aortic and ductal arches were widely patent. Pulmonary arteries appear to be confluent but may be roberto/cross in origin (normal variant.) heart rate and rhythm were regular and no pericardial effusion was seen. Normal Doppler of umbilical artery, umbilical vein, ductus venosus. In summary, the echocardiogram today showed normal intracardiac anatomy with normal ventricular function and normal heart rate and rhythm. We discussed these findings with Ms. Rosendo Roth. In addition, the limitations of the echocardiogram and echocardiography in general, including the inability to exclude ASDs, some VSDs, minor valvar abnormalities, partial anomalous pulmonary venous return, persistent patent ductus arteriosus, and coarctation of the aorta, were explained. Based on these data we did not recommend any specific further or cardiac evaluation, though we would be happy to see her back should new concerns arise. Thank you for allowing me to participate in the care of your patient and please do not hesitate to contact me if I can be any further assistance. During this patient visit I have reviewed prior notes and imaging including from referring maternal medicine specialists, devoted time to counseling/coordination of care regarding results of the echocardiogram, clincal manifestations of the identified disease, prognosis, test results and treatment options, formulated and provided my recommendations to other caregivers by verbal and written communication as appropriate and assisted in coordination of care as needed. I spent a total of 55 minutes on the date of the service which included preparing to see the patient, [id number] patient care, completing clinical documentation, obtaining and/or reviewing separately obtained history, performing a medically appropriate examination, counseling and educating the patient/family/caregiver, ordering medications, tests, or procedures, communicating with other HCPs (not separately reported), independently interpreting results (not separately reported), communicating results to the patient/family/caregiver, and care coordination (not separately reported). Sincerely, Dr. Saulo Paniagua documented in this encounter [facility] 02-22-2024 Telephone encounter Note Rosendo called in asking for her NIPT results are back. Results given per her request. I explained to her that the results are negative but not 100%. She was appreciative. She accepted appointments for echo and genetics. FU appts with [facility] will be scheduled. [facility] 02-22-2024 Miscellaneous Notes Rosendo called in asking for her NIPT results are back. Results given per her request. I explained to her that the results are negative but not 100%. She was appreciative. She accepted appointments for echo and genetics. FU appts with [facility] will be scheduled. documented in this encounter [facility] 02-21-2024 Telephone encounter Note Patient sched. [facility] 02-21-2024 Miscellaneous Notes Patient sched. LM Addended by: ROSETTE JOE on: 02/14/2024 04:13 PM Modules accepted: Orders I sent refill. Please confirm her current dosing at home (I believe should be 25 mcg 4 days per week and 50 mcg 2 days per week) We need to check TSH again within the next week Reviewed chart. Refill appropriate. RX sent. [facility]ill on Levothyroxine 25mcg. Please fill if appropriate. Thank you! Prescription Request: Last medication check: none Last physical exam: 11/29/2023 (New PT) Next scheduled appointment: 11/28/2024 Last date of refill on this medication: 12/01/2023 documented in this encounter [facility] 02-18-2024 Telephone encounter Note Sched lab drawn 02/21/24 and will verify levothyroxine dose then - please sign order for labs [facility] 02-18-2024 Miscellaneous Notes Sched lab drawn 02/21/24 and will verify levothyroxine dose then - please sign order for labs Message released to patient as written. I sent refill. Please confirm her current dosing at home (I believe should be 25 mcg 4 days per week and 50 mcg 2 days per week) We need to check TSH again within the next week Patient's further questions if applicable: None-Made apptto have labs drawn Were all questions from office addressed or relayed to the patient from encounter: Yes Lm for pt to return call- give pt information below Images from the original note were not included. Andres Ventura, We had gotten a request from your pharmacy to refill your Levothyroxine. Although below is Lisbeth's message, can you please confirm the following. RUSLAN Richards CNP 02/14/24 4:12 PM Note I sent refill. Please confirm her current dosing at home (I believe should be 25 mcg 4 days per week and 50 mcg 2 days per week) We need to check TSH again within the next week Also, we will need to get you scheduled for a nurse visit as well to get these labs drawn. Thanks! Taryn Please see previous message to patient and see if you can get in contact with her. We need to check the TSH yue. 30 tablets sent in for pt on 02/14/24 and pharmacy is asking for 90 day script documented in this encounter [facility] 02-18-2024 Telephone encounter Note Message released to patient as written. I sent refill. Please confirm her current dosing at home (I believe should be 25 mcg 4 days per week and 50 mcg 2 days per week) We need to check TSH again within the next week Patient's further questions if applicable: None-Made apptto have labs drawn Were all questions from office addressed or relayed to the patient from encounter: Yes [facility] 02-18-2024 Telephone encounter Note [facility] 02-18-2024 Miscellaneous Notes LM Addended by: ROSETTE JOE on: 02/14/2024 04:13 PM Modules accepted: Orders I sent refill. Please confirm her current dosing at home (I believe should be 25 mcg 4 days per week and 50 mcg 2 days per week) We need to check TSH again within the next week Reviewed chart. Refill appropriate. RX [facility] 25mcg. Please fill if appropriate. Thank you! Prescription Request: Last medication check: none Last physical exam: 11/29/2023 (New PT) Next scheduled appointment: 11/28/2024 Last date of refill on this medication: 12/01/2023 documented in this encounter [facility] 02-18-2024 Telephone encounter Note Lm for pt to return call- give pt information below [facility] 02-18-2024 Telephone encounter Note Images from the original note were not included. Andres Ventura, We had gotten a request from your pharmacy to refill your Levothyroxine. Although below is Lisbeth's message, can you please confirm the following. RUSLAN Richards CNP 02/14/24 4:12 PM Note I sent refill. Please confirm her current dosing at home (I believe should be 25 mcg 4 days per week and 50 mcg 2 days per week) We need to check TSH again within the next week Also, we will need to get you scheduled for a nurse visit as well to get these labs drawn. Thanks! Taryn [facility] 02-18-2024 Telephone encounter Note Please see previous message to patient and see if you can get in contact with her. We need to check the TSH yue. [facility] [employer] [facility] 02-18-2024 Telephone encounter Note 30 tablets sent in for pt on 02/14/24 and pharmacy is asking for 90 day script [facility] [employer] [facility] 02-17-2024 Telephone encounter Note Call to Rosendo at the request of Dr Duran to introduce myself as patient care nursing assistant and the Care Center. Discussion of the services offered including support, education, coordination of care and appointment scheduling. Rosendo is very overwhelmed given the new diagnosis found on her ultrasound. She is awaiting NIPT results. She would like to wait to speak to genetics until those results have returned. Emotional support given. My contact information was provided and Rosendo was invited to call with any questions or concerns. Also reviewed the multi-disciplinary team meetings in which patient's case will be discussed to optimize care planning. Patient's questions answered to the best of my ability. [facility] 02-17-2024 Miscellaneous Notes Call to Rosendo at the request of Dr Duran to introduce myself as patient care nursing assistant and the [facility]. Discussion of the services offered including support, education, coordination of care and appointment scheduling. Rosendo is very overwhelmed given the new diagnosis found on her ultrasound. She is awaiting NIPT results. She would like to wait to speak to genetics until those results have returned. Emotional support given. My contact information was provided and Rosendo was invited to call with any questions or concerns. Also reviewed the multi-disciplinary team meetings in which patient's case will be discussed to optimize care planning. Patient's questions answered to the best of my ability. documented in this encounter [facility] 02-15-2024 Progress note Formatting of t his note might be different from the original. S: Rosendo Roth is a 33 year old female who presents at 21 weeks gestation for a routine visit. Just completed anatomy US and possible abnormality with stomach visualized. MFM recommended patient complete NIPT blood work today. patient care nursing assistant/ MFM to reach out to patient. Patient reports N/V improved. Positive movements. Denies headache, visual changes, chest pain, shortness of breath, vaginal bleeding, leakage of fluid, or dysuria. O: See flow sheet Gen: No apparent distress Abd: Gravid, non tender ASSESSMENT/PLAN: 1. 21 weeks gestation of - ICD9: V22.2, ICD10: Z3A.21 (primary diagnosis) 2. Supervision of high risk in second trimester - ICD9: V23.9, ICD10: O09.92 3. Hypothyroidism, unspecified type - ICD9: 244.9, ICD10: E03.9 - Repeat TSH today - NIPT- today - MFM to contact patient to review OB US findings and develop plan of care - Support provided - RTO 4 weeks for DELBERT Simpson APRN.CNM [facility] 02-15-2024 Miscellaneous Notes S: Rosendo Roth is a 33 year old female who presents at 21 weeks gestation for a routine visit. Just completed anatomy US and possible abnormality with stomach visualized. MFM recommended patient complete NIPT blood work today. patient care nursing assistant/ MFM to reach out to patient. Patient reports N/V improved. Positive movements. Denies headache, visual changes, chest pain, shortness of breath, vaginal bleeding, leakage of fluid, or dysuria. O: See flow sheet Gen: No apparent distress Abd: Gravid, non tender ASSESSMENT/PLAN: 1. 21 weeks gestation of - ICD9: V22.2, ICD10: Z3A.21 (primary diagnosis) 2. Supervision of high risk in second trimester - ICD9: V23.9, ICD10: O09.92 3. Hypothyroidism, unspecified type - ICD9: 244.9, ICD10: E03.9 - Repeat TSH today - NIPT- today - MFM to contact patient to review OB US findings and develop plan of care - Support provided - RTO 4 weeks for DELBERT Simpson APRN.CNM documented in this encounter [facility] 02-15-2024 Instructions Neelam Vazquez MA - 02/15/2024 10:01 AM EST SEQUENTIAL SCREENINGS The [facility] offers sequential screenings for women who are interested in screenings for chromosomal abnormalities and certain defects during a . The sequential screen combines ultrasound and blood tests to determine the risk of chromosomal abnormalities, including Down's Syndrome (Trisomy 21) and Trisomy 18, as well as open neural tube defects including spina bifida. Ultrasound examination is performed between 11 weeks and 13 weeks gestational age. Blood tests are drawn after the ultrasound and again later in the between 15 and 21 weeks gestational age. Please let your physician know if you are interested in this testing. It will require an appointment with our wastewater technician. This is not an ultrasound performed by a physician in our office during a routine visit. SIGNS AND SYMPTOMS OF LABOR 1. Contractions every 10 minutes or more often 2. Clear, pink, or brownish fluid (water) leaking from vagina 3. Feeling that baby is pushing down, pressure 4. Low, dull backache 5. Cramps that feel like a period 6. Cramps with or without diarrhea If you notice any of the above symptoms, contact our office at [phone] and ask to speak with a nurse. After hours, you can call doctors registry at [phone] OR call [facility] at [phone] and ask to have the doctor workers' compensation hearings officer paged. If you consider this an emergency, dial 1-4 or go to your nearest emergency department. NEED HELP? Are you dealing with a violent or abusive relationship? Are you a victim of rape or sexual assult? Call [facility] ([place]) 24 hour Crisis Hotline: 292.340.3821 or 532-659-5953. MANUAL Your Guide to a Healthy manual is now on-line. Visit [email or web address] to download your free copy documented in this encounter [facility] 02-14-2024 Note Addended by: ROSETTE ABDUL on: 02/14/2024 04:13 PM Modules accepted: Orders [facility] 02-14-2024 Note Addended by: ROSETTE ABDUL on: 02/14/2024 04:13 PM Modules accepted: Orders [facility] 02-14-2024 Note Addended by: ROSETTE ABDUL on: 02/14/2024 04:13 PM Modules accepted: Orders [facility] 02-14-2024 Note Addended by: ROSETTE ABDUL on: 02/14/2024 04:13 PM Modules accepted: Orders [facility] 02-14-2024 Note Addended by: ROSETTE ABDUL on: 02/14/2024 04:13 PM Modules accepted: Orders [facility] 02-14-2024 Miscellaneous Notes Addended by: ROSETTE JOE on: 02/14/2024 04:13 PM Modules accepted: Orders I sent refill. Please confirm her current dosing at home (I believe should be 25 mcg 4 days per week and 50 mcg 2 days per week) We need to check TSH again within the next week Reviewed chart. Refill appropriate. [facility] 25[facility]. Please fill if appropriate. Thank you! Prescription Request: Last medication check: none Last physical exam: 11/29/2023 (New PT) Next scheduled appointment: 11/28/2024 Last date of refill on this medication: 12/01/2023 documented in this encounter [employer] [facility] 02-14-2024 Telephone encounter Note I sent refill. Please confirm her current dosing at home (I believe should be 25 mcg 4 days per week and 50 mcg 2 days per week) We need to check TSH again within the next week [employer] [facility] 02-14-2024 Telephone encounter Note Reviewed chart. Refill appropriate. RX sent. [facility] 02-14-2024 Telephone encounter Note [facility] Lev[facility] 25mcg. Please fill if appropriate. Thank you! Prescription Request: Last medication check: none Last physical exam: 11/29/2023 (New PT) Next scheduled appointment: 11/28/2024 Last date of refill on this medication: 12/01/2023 [facility] 01-07-2024 Progress note Formatting of t his note might be different from the original. EH - S: Rosendo is a 33 year old female who presents at 15w5d for a routine visit. Feeling movement. Denies headache, visual changes, chest pain, shortness of breath, vaginal bleeding, leakage of fluid, or dysuria. O: See flow sheet Gen: No apparent distress Abd: Gravid, nontender ASSESSMENT/PLAN: 1. Supervision of high risk in second trimester - ICD9: V23.9, ICD10: O09.92 (primary diagnosis) - Considering flu vaccine - Mood stable - Hives issue has resolved, has made some lifestyle changes 2. 16 weeks gestation of - ICD9: V22.2, ICD10: Z3A.16 - Anatomy ultrasound next visit - Declines genetic screening 3. Third degree perineal laceration - ICD9: 664.20, ICD10: O70.20 - Plans for vaginal delivery - Reviewed risks/benefits - Has done pelvic floor therapy 4. Hypothyroidism, unspecified type - ICD9: 244.9, ICD10: E03.9 - Managed by PCP - TSH 3.57 on 12/29 - Taking 50 mcg Synthroid 2x per week (Wednesday and Wednesday), 25 mcg the rest of the days of the week 5. Nausea and vomiting during - ICD9: 643.90, ICD10: O21.9 - Struggling with eating and nausea - Taking Zofran PRN - Recommend Vitamin B6 and Unisom regimen PTL precautions reviewed. RTO in 4 weeks or sooner as needed. Priscila Castro APRN.COSMETICIAN [facility] 01-07-2024 Miscellaneous Notes EH - S: Rosendo is a 33 year old female who presents at 15w5d for a routine visit. Feeling movement. Denies headache, visual changes, chest pain, shortness of breath, vaginal bleeding, leakage of fluid, or dysuria. O: See flow sheet Gen: No apparent distress Abd: Gravid, nontender ASSESSMENT/PLAN: 1. Supervision of high risk in second trimester - ICD9: V23.9, ICD10: O09.92 (primary diagnosis) - Considering flu vaccine - Mood stable - Hives issue has resolved, has made some lifestyle changes 2. 16 weeks gestation of - ICD9: V22.2, ICD10: Z3A.16 - Anatomy ultrasound next visit - Declines genetic screening 3. Third degree perineal laceration - ICD9: 664.20, ICD10: O70.20 - Plans for vaginal delivery - Reviewed risks/benefits - Has done pelvic floor therapy 4. Hypothyroidism, unspecified type - ICD9: 244.9, ICD10: E03.9 - Managed by PCP - TSH 3.57 on 12/29 - Taking 50 mcg Synthroid 2x per week (Wednesday and Wednesday), 25 mcg the rest of the days of the week 5. Nausea and vomiting during - ICD9: 643.90, ICD10: O21.9 - Struggling with eating and nausea - Taking Zofran PRN - Recommend Vitamin B6 and Unisom regimen PTL precautions reviewed. RTO in 4 weeks or sooner as needed. Priscila Castro APRN.CNP documented in this encounter [facility] 01-07-2024 Instructions Priscila Castro APRN.CNP - 01/07/2024 1:27 PM EST MORNING SICKNESS IN by Laura Blank M.D. for [employer] As you may already know, morning sickness can often be more appropriately called evening sickness or epvvu-onntti-gg-the-day sickness. While there are the zahraa few, most women (50-90%) experience some degree of nausea, some have vomiting, and a few develop a severe form of vomiting during called hyperemesis gravidarum. What causes the nausea and vomiting of ? We can't explain why some people feel fine and others are green for months. Even the same woman may feel vastly different in each . There is some relationship between nausea and the level of the hormone hCG. In twin pregnancies, and in other situations where the hCG is greater than expected, nausea and vomiting tend to be worse. In a destined for miscarriage, hCG levels tend to be low, and nausea is often less severe. This being said, a lack of nausea doesn't guarantee that the is destined for miscarriage. The fact that nausea and vomiting are often signs of a healthy can offer a silver lining in the dark cloud of miserable nausea. How long will the nausea last? Fortunately, for most women, nausea and vomiting are a first trimester event, peaking at week 9-10 and waning by week 14-16. When you are feeling bad the weeks can go by slowly but most moms do feel tremendously better by the middle of the . Whether morning sickness is a brief experience or lasts through most of the , there are treatments that can make the weeks or months more tolerable. What can you do about it? Diet: See what works for you. Try eating bland dry foods, and avoid fatty or spicy foods. It is okay to eat a less than perfectly balanced diet in the first trimester. Have your liquids separately from dry foods. Try sports drinks, water, clear juices, Wilver-aid, or non-caffeinated tea. Avoid carbonated beverages that fill up your stomach. Try eating lots of little meals. If you tend to feel sick when you first wake up, leave crackers next to the bed for a quick snack before rising. Keeping healthy snacks with you all day to nibble when you feel queasy can sometimes even prevent nausea from starting. vitamins and nausea: Pre- vitamins can sometimes worsen nausea in . While folate is necessary, especially early in the , it comes as a smaller pill that many people find more tolerable than the complete vitamin pill. Ask your practitioner if it is okay to temporarily replace vitamins and iron with just a folate pill if you find a significant worsening in the level of your nausea from the vitamins. Alternative therapies: Acupressure may be used to treat nausea in , and is not known to have any risks for the fetus. Wristbands (marketed for seasickness) that put pressure on an acupressure point at the wrist are often available at drugstores or travel stores. Kemal root is used for nausea in many traditional cultures. Some women take fresh grated kemal or kemal tablets. It is possible that the pill form contains other ingredients or contaminants, so you may want to try fresh kemal first. Medications: Emetrol is the only nausea medication approved for use in . It is available over the counter and is soothing to the stomach. A prescription medication called Bendectin was available in the -1979's and was shown to be safe in , but the company stopped marketing it in the [place] due to the costs of liability coverage. Bendectin contained 10 milligrams of vitamin B6 and 10 milligrams of Doxylamine. Two tablets were given at bedtime and a total of up to 4 tablets could be used in a 24-hour period. Interestingly, Unisom , which contains a higher dose (25 mg.) of the same medication, Doxylamine, is currently marketed as an pevh-lii-auubwyt sleeping pill. Ask your practitioner if creating a vitamin B6/Doxylamine combination with otzk-yrg-ryxwyzx medications would be safe for you. Prescription medications like Compazine and Phenergan can be used if the benefits outweigh possible risks, but these have not been clearly shown to be safe in . Zofran , an expensive anti-nausea medication often used to treat nausea from chemotherapy, can also be used. Can I throw up so much it harms the baby? The act of vomiting cannot hurt your fetus, which is protected inside the uterus. If you get dehydrated or develop a metabolic imbalance, this can be unhealthy. As long as you can keep down liquids, you and your baby will generally do all right. Eat when you feel able. If you are unable to keep anything down, or if you notice potential signs of dehydration such as lightheadedness, or concentrated and/or infrequent urination, call your practitioner. Some women need brief hospital admission for intravenous fluids and anti-nausea medications if their condition becomes severe. This severe form of nausea and vomiting is called Hyperemesis Gravidarum. As with many symptoms of , remind yourself that this, too, shall pass, and you'll have a wonderful baby to show for it! TREATMENT OPTIONS, SHORT VERSION: Frequent small meals Hydrate throughout day [employer] wrist pressure point applicators Kemal root (powdered, in capsules) 250mg four times a day Vitamin B6 25 mg tablet three times a day Also may be taken with half a tablet of Unisom three times a day (Doxylamine 12.5 mg) If severe (weight loss, dehydration), call us and come in for IV hydration and possible medication in the form of injections. Prescription medications such as Phenergan, Compazine, Reglan SEQUENTIAL SCREENINGS The [facility] offers sequential screenings for women who are interested in screenings for chromosomal abnormalities and certain defects during a . The sequential screen combines ultrasound and blood tests to determine the risk of chromosomal abnormalities, including Down's Syndrome (Trisomy 21) and Trisomy 18, as well as open neural tube defects including spina bifida. Ultrasound examination is performed between 11 weeks and 13 weeks gestational age. Blood tests are drawn after the ultrasound and again later in the between 15 and 21 weeks gestational age. Please let your physician know if you are interested in this testing. It will require an appointment with our wastewater technician. This is not an ultrasound performed by a physician in our office during a routine visit. SIGNS AND SYMPTOMS OF LABOR 1. Contractions every 10 minutes or more often 2. Clear, pink, or brownish fluid (water) leaking from vagina 3. Feeling that baby is pushing down, pressure 4. Low, dull backache 5. Cramps that feel like a period 6. Cramps with or without diarrhea If you notice any of the above symptoms, contact our office at [phone] and ask to speak with a nurse. After hours, you can call doctors registry at [phone] OR call [facility] at [phone] and ask to have the doctor workers' compensation hearings officer paged. If you consider this an emergency, dial 9-1-9 or go to your nearest emergency department. NEED HELP? Are you dealing with a violent or abusive relationship? Are you a victim of rape or sexual assult? Call [facility] ([place]) 24 hour Crisis Hotline: 276.158.6121 or 686-620-7078. MANUAL Your Guide to a Healthy manual is now on-line. Visit [email or web address] to download your free copy documented in this encounter [facility] 12-31-2023 Telephone encounter Note Images from the original note were not included. Message released to patient as written. Rita Grace MA MS 12/31/23 9:03 AM Note ----- Message from Joseph Candelaria MD sent at 12/31/2023 5:23 AM EST ----- TSH and free T4 indicate normal thyroid levels Left a message to return call. Patient's further questions if applicable: Pt understood message. No further questions. Were all questions from office addressed or relayed to the patient from encounter: N/A [facility] 12-31-2023 Miscellaneous Notes Images from the original note were not included. Message released to patient as written. Rita Grace MA MS 12/31/23 9:03 AM Note ----- Message from Joseph Candelaria MD sent at 12/31/2023 5:23 AM EST ----- TSH and free T4 indicate normal thyroid levels Left a message to return call. Patient's further questions if applicable: Pt understood message. No further questions. Were all questions from office addressed or relayed to the patient from encounter: N/A ----- Message from Joseph Candelaria MD sent at 12/31/2023 5:23 AM EST ----- TSH and free T4 indicate normal thyroid levels Left a message to return call. documented in this encounter [facility] 12-31-2023 Telephone encounter Note ----- Message from Joseph Candelaria MD sent at 12/31/2023 5:23 AM EST ----- TSH and free T4 indicate normal thyroid levels Left a message to return call. [facility] 12-13-2023 Telephone encounter Note Left message for patient to call office. Clementine Haque RN [facility] 12-13-2023 Miscellaneous Notes Left message for patient to call office. Clementine Haque RN Images from the original note were not included. Darek Pichardo MD P [facility] [employer] Pool Add to record Notify pt elevated TSH and will increase medication dosing. Will need repeat TSH 4 weeks See result note TSH and levothyroxine sent documented in this encounter [facility] 12-13-2023 Telephone encounter Note Images from the original note were not included. Darek Pichardo MD P [facility] [employer] [place] Add to record Notify pt elevated TSH and will increase medication dosing. Will need repeat TSH 4 weeks [facility] 12-13-2023 Telephone encounter Note See result note TSH and levothyroxine sent [facility] 12-10-2023 Progress note Formatting of t his note might be different from the original. S: Rosendo Roth is a 33 year old female who presents at 06/25/2024, by Ultrasound for a routine visit. Denies headache, visual changes, chest pain, shortness of breath, vaginal bleeding, leakage of fluid, or dysuria. Feeling well, no complaints. O: See flow sheet Gen: No apparent distress Abd: Gravid, nontender Nausea getting better. Declined NIPT Gets random hives on her feet. Resolves with benadryl ASSESSMENT/PLAN: 1. 11 weeks gestation of - ICD9: V22.2, ICD10: Z3A.11 (primary diagnosis) 2. Encounter for supervision of normal in multigravida in first trimester - ICD9: V22.1, ICD10: Z34.81 Getting labs today Yajaira Serrano MD [facility] 12-10-2023 Miscellaneous Notes S: Rosendo Roth is a 33 year old female who presents at 06/25/2024, by Ultrasound for a routine visit. Denies headache, visual changes, chest pain, shortness of breath, vaginal bleeding, leakage of fluid, or dysuria. Feeling well, no complaints. O: See flow sheet Gen: No apparent distress Abd: Gravid, nontender Nausea getting better. Declined NIPT Gets random hives on her feet. Resolves with benadryl ASSESSMENT/PLAN: 1. 11 weeks gestation of - ICD9: V22.2, ICD10: Z3A.11 (primary diagnosis) 2. Encounter for supervision of normal in multigravida in first trimester - ICD9: V22.1, ICD10: Z34.81 Getting labs today Yajaira Serrano MD documented in this encounter [facility] 12-10-2023 Instructions Ann Marie Ledesma MA - 12/10/2023 1:28 PM EDT SEQUENTIAL SCREENINGS The [facility] offers sequential screenings for women who are interested in screenings for chromosomal abnormalities and certain defects during a . The sequential screen combines ultrasound and blood tests to determine the risk of chromosomal abnormalities, including Down's Syndrome (Trisomy 21) and Trisomy 18, as well as open neural tube defects including spina bifida. Ultrasound examination is performed between 11 weeks and 13 weeks gestational age. Blood tests are drawn after the ultrasound and again later in the between 15 and 21 weeks gestational age. Please let your physician know if you are interested in this testing. It will require an appointment with our wastewater technician. This is not an ultrasound performed by a physician in our office during a routine visit. SIGNS AND SYMPTOMS OF LABOR 1. Contractions every 10 minutes or more often 2. Clear, pink, or brownish fluid (water) leaking from vagina 3. Feeling that baby is pushing down, pressure 4. Low, dull backache 5. Cramps that feel like a period 6. Cramps with or without diarrhea If you notice any of the above symptoms, contact our office at [phone] and ask to speak with a nurse. After hours, you can call doctors registry at [phone] OR call [facility] at [phone] and ask to have the doctor workers' compensation hearings officer paged. If you consider this an emergency, dial [phone] or go to your nearest emergency department. NEED HELP? Are you dealing with a violent or abusive relationship? Are you a victim of rape or sexual assult? Call [facility] ([place]) 24 hour Crisis Hotline: 808.871.5427 or 046-391-7959. MANUAL Your Guide to a Healthy manual is now on-line. Visit [email or web address] to download your free copy documented in this encounter [facility] 12-01-2023 Telephone encounter Note Meds and labs pended, please update sig as well. [facility] 12-01-2023 Miscellaneous Notes Meds and labs pended, please update sig as well. Message released to patient as written. Patient's further questions if applicable: Were all questions from office addressed or relayed to the patient from encounter: Yes, please send new script to the pharm on file. Repeat lab work scheduled for 12/29. ----- Message from RUSLAN Richards CNP sent at 11/30/2023 6:35 AM EDT ----- Lipid panel- cholesterol levels are good TSH- slightly elevated (meaning you are not getting enough levothyroxine) T4-low normal (meaning you need more of the levothyroxine) Recommend taking levothyroxine 25 mcg 5 days a week and 50 mcg 2 days a week and rechecking TSH in 4 weeks. Left a message to return call. Directions for CAC in the event patient calls back: If the patient is agreeable to starting the new medication, please: 1. Verify what pharmacy RX will be sent to. 2. Schedule patient for nurse visit to repeat labs in 4 weeks. 3. Route this TE back to the office clinical pool so we can place lab orders and send in rx. If the patient is not agreeable to starting the new medication then no nurse visit is needed. Thank you! documented in this encounter [facility] 12-01-2023 Telephone encounter Note Message released to patient as written. Patient's further questions if applicable: Were all questions from office addressed or relayed to the patient from encounter: Yes, please send new script to the pharm on file. Repeat lab work scheduled for 12/29. [facility] 11-30-2023 Telephone encounter Note ----- Message from RUSLAN Richards CNP sent at 11/30/2023 6:35 AM EDT ----- Lipid panel- cholesterol levels are good TSH- slightly elevated (meaning you are not getting enough levothyroxine) T4-low normal (meaning you need more of the levothyroxine) Recommend taking levothyroxine 25 mcg 5 days a week and 50 mcg 2 days a week and rechecking TSH in 4 weeks. Left a message to return call. Directions for CAC in the event patient calls back: If the patient is agreeable to starting the new medication, please: 1. Verify what pharmacy RX will be sent to. 2. Schedule patient for nurse visit to repeat labs in 4 weeks. 3. Route this TE back to the office clinical pool so we can place lab orders and send in rx. If the patient is not agreeable to starting the new medication then no nurse visit is needed. Thank you! [facility] 11-29-2023 Evaluation + Plan note Associated Problem(s): Hypothyroidism Continue levothyroxine 25 mcg daily. Upon chart review it seems she was being treated for subclinical hypothyroidism- not overt hypothyroidism. At this time we will check TSH and free T4. If TSH >2.5, recommend increasing weekly dose by 30% and rechecking TSH in 4 weeks due to increased need during [facility] 11-29-2023 Miscellaneous Notes Associated Problem(s): Hypothyroidism Continue levothyroxine 25 mcg daily. Upon chart review it seems she was being treated for subclinical hypothyroidism- not overt hypothyroidism. At this time we will check TSH and free T4. If TSH >2.5, recommend increasing weekly dose by 30% and rechecking TSH in 4 weeks due to increased need during Associated Problem(s): Less than 8 weeks gestation of Continue follow up with whale trainer Associated Problem(s): Anxiety and depression Symptoms well controlled. Follow up with psychiatry as directed. documented in this encounter [facility] 11-29-2023 Evaluation + Plan note Associated Problem(s): Less than 8 weeks gestation of Continue follow up with whale trainer [facility] 11-29-2023 Evaluation + Plan note Associated Problem(s): Anxiety and depression Symptoms well controlled. Follow up with psychiatry as directed. [facility] 11-29-2023 History of Presen t illness Narrative Patient was identified by name and Date of . NEED TO GO OVER MEDICATIONS. Health Maintenance Due Topic TSH Level-pended MMR Vaccines -declined Pneumococcal Vaccine-declined Depression Monitoring-completed Varicella Vaccines -had as a child Hepatitis B Vaccines -declined Influenza Vaccine -declined COVID-19 Vaccine-declined Images from the original note were not included. 11/29/2023 Rosendo Roth (: 1990) is a 33 y.o. female , New patient, here for evaluation of the following chief complaint(s): New Patient and Health Maintenance ( TSH Level-pended/ MMR Vaccines -declined/ Pneumococcal Vaccine-declined/ Depression Monitoring-completed/ Varicella Vaccines -declined/ Hepatitis B Vaccines -declined/ Influenza Vaccine -declined/ COVID-19 Vaccine-declined//) ASSESSMENT/PLAN: 1. Hypothyroidism, unspecified type Assessment & Plan: Continue levothyroxine 25 mcg daily. Upon chart review it seems she was being treated for subclinical hypothyroidism- not overt hypothyroidism. At this time we will check TSH and free T4. If TSH >2.5, recommend increasing weekly dose by 30% and rechecking TSH in 4 weeks due to increased need during Orders: - TSH - T4, free 2. Less than 8 weeks gestation of Assessment & Plan: Continue follow up with whale trainer 3. Exercise-induced asthma 4. Anxiety and depression Assessment & Plan: Symptoms well controlled. Follow up with psychiatry as directed. 5. Screening for cholesterol level - Lipid panel Follow up for as directed pending test results. SUBJECTIVE/OBJECTIVE: HPI - Rosendo Roth presents as new patient, previous primary care provider Dr. Bridget Decker, [facility], last seen February 2023 by previous provider. Specialists/other providers? Yes, describe: [facility] and whale trainer Chief complaint(s): New Patient and Health Maintenance ( TSH Level-pended/ MMR Vaccines -declined/ Pneumococcal Vaccine-declined/ Depression Monitoring-completed/ Varicella Vaccines -declined/ Hepatitis B Vaccines -declined/ Influenza Vaccine -declined/ COVID-19 Vaccine-declined//) roll bucker - [facility] in [place]. Has had 1st visit. YUSUF 06/24/2024, Next Wednesday is the next visit. Would like to establish with provider in this area. [place] and [place] provider. Biggest concern today is hypothyroidism. She was dx in 09/2021 and started on levothyroxine 25 mcg. Her initial TSH was 5.81 and T4 was normal. Her last TSH was normal 1.01 on 09/21/2022. She has continued to take levothyroxine 25 mcg daily. Denies any other concerns today. Psychiatry- sees for depression and stable on sertraline 50 mg daily. Exercise induced asthma- reports not needing inhaler for several years. Has one at home. Denies any other times that her asthma flares up. Past Medical History: Diagnosis Date Asthma exercise induced- Depression medication Irritable bowel syndrome constipation Past Surgical History: Procedure Laterality Date BREAST ENHANCEMENT SURGERY 2020 TONSILLECTOMY (HISTORICAL) Family History Problem Relation Name Age of Onset Stroke Maternal Grandfather Hypertension Maternal Grandfather Osteoporosis Maternal Grandmother Social History Socioeconomic History Marital status: Spouse name: Cruzito Number of children: 1 Years of education: Not on file Highest education level: Master's degree (e.g., MA, MS, [place], MEd, ORTHODONTIST ASSISTANT, [employer]ONY) Occupational History Not on file Tobacco Use Smoking status: Never Smokeless tobacco: Never Substance and Sexual Activity Alcohol use: Yes Drug use: No Sexual activity: Yes Partners: Male Comment: Other Topics Concern Not on file Social History Narrative Lives at home with Cruzito, son - Fin- 15 months, and cat- Camron. 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 Cruzito works for [employer]. Social Determinants of Health Financial Resource Strain: Not on file Food Insecurity: Not on file Transportation Needs: Not on file Physical Activity: Not on file Stress: Not on file Social Connections: Not on file Intimate Partner Violence: Not on file Housing Stability: Not on file Prior to Admission medications Medication Sig Start Date End Date Taking? Authorizing Provider betamethasone, augmented, (Diprolene AF) 0.05 % cream Apply topically to affected area of rash 1-2 times daily on left leg. 07/29/23 Yes Historical Provider, clobetasol (Temovate) 0.05 % external solution APPLY TO AFFECTED AREA 1 TO 2 TIMES DAILY WHEN FLARED. 06/07/23 Yes Historical Provider, clotrimazole-betamethasone (Lotrisone) cream APPLY TOPICALLY 2 TIMES A DAY TO AFFECTED AREAS 03/10/23 Yes Historical Provider, levothyroxine (Synthroid, Levoxyl) 25 MCG tablet Take 25 mcg by mouth daily. as directed 08/20/22 Yes Historical Provider, ondansetron ODT (Zofran-ODT) 4 MG disintegrating tablet Take 4 mg by mouth every 8 hours as needed. 11/12/23 Yes Historical Provider, Vit-Fe Fumarate-FA ( PO) Take by mouth. Yes Historical Provider, sertraline (Zoloft) 50 MG tablet Take 1 tablet (50 mg) by mouth daily. 09/06/23 Yes Namita Santiago, CLIENT CONSULTANT - COSMETICIAN triamcinolone (Kenalog) 0.1 % cream APPLY TOPICALLY TO AREAS OF RASH ON THE BODY 1 TO 2 TIMES A DAY NEEDED 06/07/23 Yes Historical Provider, Review of Systems Constitutional: Positive for fatigue (with ). Negative for activity change, appetite change and fever. HENT: Negative. Negative for congestion. Eyes: Negative. Eye exam on Wednesday- wears glasses and contacts Respiratory: Negative. Cardiovascular: Negative. Gastrointestinal: Positive for constipation (occasional) and nausea (with ). Negative for abdominal pain, blood in stool, diarrhea and vomiting. Genitourinary: Negative for difficulty urinating and menstrual problem. Musculoskeletal: Negative. Skin: Negative. Sees senior energy trader Neurological: Negative for dizziness, seizures, syncope, light-headedness and headaches. Psychiatric/Behavioral: Negative for agitation, decreased concentration, self-injury, sleep disturbance and suicidal ideas. The patient is not nervous/anxious. Vitals: 11/29/23 1001 BP: 98/65 Pulse: 72 Resp: 20 Temp: 36.9 C (98.5 F) TempSrc: Infrared SpO2: 98% Weight: 145 lb 6.4 oz (66 kg) Height: 5' 8 (1.727 m) Physical Exam Constitutional: General: She is not in acute distress. Appearance: Normal appearance. She is not ill-appearing. HENT: Head: Normocephalic and atraumatic. Right Ear: Tympanic membrane normal. Left Ear: Tympanic membrane normal. Nose: Congestion present. Mouth/Throat: Mouth: Mucous membranes are moist. Pharynx: Oropharynx is clear. No posterior oropharyngeal erythema. Eyes: Conjunctiva/sclera: Conjunctivae normal. Cardiovascular: Rate and Rhythm: Normal rate and regular rhythm. Pulses: Normal pulses. Heart sounds: Normal heart sounds. Pulmonary: Effort: Pulmonary effort is normal. Breath sounds: Normal breath sounds. Musculoskeletal: Right lower leg: No edema. Left lower leg: No edema. Lymphadenopathy: Cervical: No cervical adenopathy. Skin: General: Skin is warm and dry. Neurological: Mental Status: She is alert and oriented to person, place, and time. Psychiatric: Mood and Affect: Mood normal. Behavior: Behavior normal. Thought Content: Thought content normal. Judgment: Judgment normal. An electronic signature was used to authenticate this note. RUSLAN Macdonald CNP 11/29/2023 11:54 AM documented in this encounter [facility] 11-29-2023 History of Presen t illness Narrative Patient was identified by name and Date of . NEED TO GO OVER MEDICATIONS. Health Maintenance Due Topic TSH Level-pended MMR Vaccines -declined Pneumococcal Vaccine-declined Depression Monitoring-completed Varicella Vaccines -had as a child Hepatitis B Vaccines -declined Influenza Vaccine -declined COVID-19 Vaccine-declined Images from the original note were not included. 11/29/2023 Rosendo Roth (: 1990) is a 33 y.o. female , New patient, here for evaluation of the following chief complaint(s): New Patient and Health Maintenance ( TSH Level-pended/ MMR Vaccines -declined/ Pneumococcal Vaccine-declined/ Depression Monitoring-completed/ Varicella Vaccines -declined/ Hepatitis B Vaccines -declined/ Influenza Vaccine -declined/ COVID-19 Vaccine-declined//) ASSESSMENT/PLAN: 1. Hypothyroidism, unspecified type Assessment & Plan: Continue levothyroxine 25 mcg daily. Upon chart review it seems she was being treated for subclinical hypothyroidism- not overt hypothyroidism. At this time we will check TSH and free T4. If TSH >2.5, recommend increasing weekly dose by 30% and rechecking TSH in 4 weeks due to increased need during Orders: - TSH - T4, free 2. Less than 8 weeks gestation of Assessment & Plan: Continue follow up with whale trainer 3. Exercise-induced asthma 4. Anxiety and depression Assessment & Plan: Symptoms well controlled. Follow up with psychiatry as directed. 5. Screening for cholesterol level - Lipid panel Follow up for as directed pending test results. SUBJECTIVE/OBJECTIVE: MARIVEL - Rosendo Roth presents as new patient, previous primary care provider Dr. Bridget Decker, [facility], last seen February 2023 by previous provider. Specialists/other providers? Yes, describe: [facility] and whale trainer Chief complaint(s): New Patient and Health Maintenance ( TSH Level-pended/ MMR Vaccines -declined/ Pneumococcal Vaccine-declined/ Depression Monitoring-completed/ Varicella Vaccines -declined/ Hepatitis B Vaccines -declined/ Influenza Vaccine -declined/ COVID-19 Vaccine-declined//) roll bucker - [facility] in [place]. Has had 1st visit. YUSUF 06/24/2024, Next Wednesday is the next visit. LMP approx 09/11/2023. Would like to establish with provider in this area. [place] living [place] and was going to provider. Biggest concern today is hypothyroidism. She was dx in 09/2021 and started on levothyroxine 25 mcg. Her initial TSH was 5.81 and T4 was normal. Her last TSH was normal 1.01 on 09/21/2022. She has continued to take levothyroxine 25 mcg daily. Denies any other concerns today. Psychiatry- sees for depression and stable on sertraline 50 mg daily. Exercise induced asthma- reports not needing inhaler for several years. Has one at home. Denies any other times that her asthma flares up. Past Medical History: Diagnosis Date Asthma exercise induced- Depression medication Irritable bowel syndrome constipation Past Surgical History: Procedure Laterality Date BREAST ENHANCEMENT SURGERY 2020 TONSILLECTOMY (HISTORICAL) Family History Problem Relation Name Age of Onset Stroke Maternal Grandfather Hypertension Maternal Grandfather Osteoporosis Maternal Grandmother Social History Socioeconomic History Marital status: Spouse name: Cruzito Number of children: 1 Years of education: Not on file Highest education level: Master's degree (e.g., MA, MS, [place], MEd, ORTHODONTIST ASSISTANT, [employer]ONY) Occupational History Not on file Tobacco Use Smoking status: Never Smokeless tobacco: Never Substance and Sexual Activity Alcohol use: Yes Drug use: No Sexual activity: Yes Partners: Male Comment: Other Topics Concern Not on file Social History Narrative Lives at home with Cruzito, son - Fin- 15 months, and cat- Camron. 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 Cruzito works for [employer]. Social Determinants of Health Financial Resource Strain: Not on file Food Insecurity: Not on file Transportation Needs: Not on file Physical Activity: Not on file Stress: Not on file Social Connections: Not on file Intimate Partner Violence: Not on file Housing Stability: Not on file Prior to Admission medications Medication Sig Start Date End Date Taking? Authorizing Provider betamethasone, augmented, (Diprolene AF) 0.05 % cream Apply topically to affected area of rash 1-2 times daily on left leg. 07/29/23 Yes Historical Provider, clobetasol (Temovate) 0.05 % external solution APPLY TO AFFECTED AREA 1 TO 2 TIMES DAILY WHEN FLARED. 06/07/23 Yes Historical Provider, clotrimazole-betamethasone (Lotrisone) cream APPLY TOPICALLY 2 TIMES A DAY TO AFFECTED AREAS 03/10/23 Yes Historical Provider, levothyroxine (Synthroid, Levoxyl) 25 MCG tablet Take 25 mcg by mouth daily. as directed 08/20/22 Yes Historical Provider, ondansetron ODT (Zofran-ODT) 4 MG disintegrating tablet Take 4 mg by mouth every 8 hours as needed. 11/12/23 Yes Historical Provider, Vit-Fe Fumarate-FA ( PO) Take by mouth. Yes Historical Provider, sertraline (Zoloft) 50 MG tablet Take 1 tablet (50 mg) by mouth daily. 09/06/23 Yes Namita Santiago APRN - COSMETICIAN triamcinolone (Kenalog) 0.1 % cream APPLY TOPICALLY TO AREAS OF RASH ON THE BODY 1 TO 2 TIMES A DAY NEEDED 06/07/23 Yes Historical Provider, Review of Systems Constitutional: Positive for fatigue (with ). Negative for activity change, appetite change and fever. HENT: Negative. Negative for congestion. Eyes: Negative. Eye exam on Wednesday- wears glasses and contacts Respiratory: Negative. Cardiovascular: Negative. Gastrointestinal: Positive for constipation (occasional) and nausea (with ). Negative for abdominal pain, blood in stool, diarrhea and vomiting. Genitourinary: Negative for difficulty urinating and menstrual problem. Musculoskeletal: Negative. Skin: Negative. Sees senior energy trader Neurological: Negative for dizziness, seizures, syncope, light-headedness and headaches. Psychiatric/Behavioral: Negative for agitation, decreased concentration, self-injury, sleep disturbance and suicidal ideas. The patient is not nervous/anxious. Vitals: 11/29/23 1001 BP: 98/65 Pulse: 72 Resp: 20 Temp: 36.9 C (98.5 F) TempSrc: Infrared SpO2: 98% Weight: 145 lb 6.4 oz (66 kg) Height: 5' 8 (1.727 m) Physical Exam Constitutional: General: She is not in acute distress. Appearance: Normal appearance. She is not ill-appearing. HENT: Head: Normocephalic and atraumatic. Right Ear: Tympanic membrane normal. Left Ear: Tympanic membrane normal. Nose: Congestion present. Mouth/Throat: Mouth: Mucous membranes are moist. Pharynx: Oropharynx is clear. No posterior oropharyngeal erythema. Eyes: Conjunctiva/sclera: Conjunctivae normal. Cardiovascular: Rate and Rhythm: Normal rate and regular rhythm. Pulses: Normal pulses. Heart sounds: Normal heart sounds. Pulmonary: Effort: Pulmonary effort is normal. Breath sounds: Normal breath sounds. Musculoskeletal: Right lower leg: No edema. Left lower leg: No edema. Lymphadenopathy: Cervical: No cervical adenopathy. Skin: General: Skin is warm and dry. Neurological: Mental Status: She is alert and oriented to person, place, and time. Psychiatric: Mood and Affect: Mood normal. Behavior: Behavior normal. Thought Content: Thought content normal. Judgment: Judgment normal. An electronic signature was used to authenticate this note. Rosette NamitaRUSLAN rBunson CNP 12/01/2023 5:31 PM documented in this encounter [facility] 11-12-2023 Instructions Ann Marie Ledesma MA - 11/12/2023 8:15 AM EDT Please select the following link to access the [facility] Your Guide to a Healthy . [email or web address] documented in this encounter [facility] 11-11-2023 Telephone encounter Note OB intake completed [facility] 11-11-2023 Miscellaneous Notes OB intake completed Patient called back. She will have her phone on her this afternoon for nurse to call her back for questions. Clementine Haque RN Attempted to call patient to go over new ob intake questions. No answer; had to leave a voicemail. Joie Polo MA documented in this encounter [facility] 11-11-2023 Note HNO ID: [id number] Author: ARLENE PABLO APRN.CNP Service: ? Author Type: Nurse Practitioner Type: Progress Notes Filed: 11/12/2023 09:43 Note Text: *Patient has a history of hypothyroidism treated by [facility]. She is aware to take thyroid medication and vitamin at different times. Last TSH and free T4 were done September 22, 2023. * Patient has a history of exercise-induced asthma. She has not used an inhaler since 2021. *Patient has a history of anxiety and depression treated by [facility]. She was diagnosed at age 19. Doing well on medication. States she did have a history of depression. Denies any suicidal thoughts since age 19. * Patient delivered her previous child August 12, 2022 at [facility]. Patient has a history of third-degree laceration. She did have pelvic floor physical therapy. *Patient's mother born with heart valve abnormality. Patient does not know specifics. INITIAL OB ASSESSMENT HPI: Rosendo is a 33 year old White here to establish Obstetrical Care. Patient's last menstrual period was 09/11/2023 (approximate). from OB Dating Form. was planned Complaints: No OB History T1 L1 SAB0 IAB0 Ectopic0 Multiple0 Live Births1 # 1 - Date: 08/12/22, Sex: Male, Weight: 3.26 kg (7 lb 3 oz), GA: 38w5d, Type: Vaginal, Spontaneous, Apgar1: None, Apgar5: None, Living: Living, Comments: 3rd degree laceration # 2 - Date: None, Sex: None, Weight: None, GA: None, Type: None, Apgar1: None, Apgar5: None, Living: None, Comments: None Previous history: Prior : never History of 4th degree laceration: No History of shoulder dystocia: No History of Hypertensive disorders including pre-eclampsia or gestational hypertension: No History of gestational diabetes: No Patient's Risk Screening for delivery: Have you had a prior aly between 20w and 36w6d? No How many pregnancies have you had before? 1 Did you have a previous baby with a GBS Infection? No Please select all that apply for any prior : N/A MEDICAL/PSYCHOSOCIAL HISTORY: History of hemorrhage or bleeding concerns: No Thyroid Disease: No History of chronic hypertension: No History of pre-existing diabetes: No No results found for: ABORHD No weight on file for this encounter. Last Pap: History of abnormal pap: No Prior treatment for cervical dysplasia: none. Last HPV: History of STDs: None Partner History of STDs: None Did you have a partner with Herpes? No Tobacco use: No E-Cigarette/Vaping Use: No Caffeine use: Yes, less than 200mg of coffee a day Drug use: No Alcohol use: No Multivitamin with Folic acid: Yes Would refuse blood transfusion if medically necessary: No Social Needs: How often does this describe you? I don't have enough money to pay my bills: Never Within the past 12 months, have you worried that your food would run out before you had money to buy more? Never In the past 12 months, has lack of reliable transportation kept you from going to medical appointments or work, or from getting things needed for daily living? Never In the past 12 months, have you had any concerns about having a place to live, or about the condition or quality of your housing? Never Would you like more information on any of the following (please check all that apply)? Not interested Social History: Do you have any history of depression, anxiety, PTSD, or other mood problems? Yes Do you have a history of abuse or trauma that may impact your experience? No Are you currently employed? Yes Depression/Anxiety Screening: denies symptoms of depression. OB Depression and Anxiety Screening- This Encounter (since 11/10/2023) Over the past 2 weeks have you felt down, depressed, or hopeless? Negative Over the past two weeks, have you felt little interest or pleasure in doing things?? Negative Feeling nervous, anxious or on edge 0-Not at all Not being able to stop or control worrying 0-Not al all Anxiety Pre-Screening Total (If >/= 3 additional questions will be reviewed) 0 Genetic Screening: Partner present: No Patient verbalized knowledge of partner family health history: No Do you or your partner have any personal or family history of defects not previously discussed: No Do you have history of a complicated by anomaly, genetic condition, or demise: No Low Dose ASA Screening: Screening for low dose aspirin use for the prevention of pre-eclampsia: High risk factors: None Moderate risk ractors: None OB Risk Screening: Completed, no positive findings documented. 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 [facility] 11-11-2023 History of Presen t illness Narrative *Patient has a history of hypothyroidism treated by [facility]. She is aware to take thyroid medication and vitamin at different times. Last TSH and free T4 were done September 22, 2023. * Patient has a history of exercise-induced asthma. She has not used an inhaler since 2021. *Patient has a history of anxiety and depression treated by [facility]. She was diagnosed at age 19. Doing well on medication. States she did have a history of depression. Denies any suicidal thoughts since age 19. * Patient delivered her previous child August 12, 2022 at [facility]. Patient has a history of third-degree laceration. She did have pelvic floor physical therapy. *Patient's mother born with heart valve abnormality. Patient does not know specifics. INITIAL OB ASSESSMENT HPI: Rosendo is a 33 year old White here to establish Obstetrical Care. Patient's last menstrual period was 09/11/2023 (approximate). from OB Dating Form. was planned Complaints: No OB History T1 L1 SAB0 IAB0 Ectopic0 Multiple0 Live Births1 # 1 - Date: 08/12/22, Sex: Male, Weight: 3.26 kg (7 lb 3 oz), GA: 38w5d, Type: Vaginal, Spontaneous, Apgar1: None, Apgar5: None, Living: Living, Comments: 3rd degree laceration # 2 - Date: None, Sex: None, Weight: None, GA: None, Type: None, Apgar1: None, Apgar5: None, Living: None, Comments: None Previous history: Prior : never History of 4th degree laceration: No History of shoulder dystocia: No History of Hypertensive disorders including pre-eclampsia or gestational hypertension: No History of gestational diabetes: No Patient's Risk Screening for delivery: Have you had a prior aly between 20w and 36w6d? No How many pregnancies have you had before? 1 Did you have a previous baby with a GBS Infection? No Please select all that apply for any prior : N/A MEDICAL/PSYCHOSOCIAL HISTORY: History of hemorrhage or bleeding concerns: No Thyroid Disease: No History of chronic hypertension: No History of pre-existing diabetes: No No results found for: ABORHD No weight on file for this encounter. Last Pap: History of abnormal pap: No Prior treatment for cervical dysplasia: none. Last HPV: History of STDs: None Partner History of STDs: None Did you have a partner with Herpes? No Tobacco use: No E-Cigarette/Vaping Use: No Caffeine use: Yes, less than 200mg of coffee a day Drug use: No Alcohol use: No Multivitamin with Folic acid: Yes Would refuse blood transfusion if medically necessary: No Social Needs: How often does this describe you? I don't have enough money to pay my bills: Never Within the past 12 months, have you worried that your food would run out before you had money to buy more? Never In the past 12 months, has lack of reliable transportation kept you from going to medical appointments or work, or from getting things needed for daily living? Never In the past 12 months, have you had any concerns about having a place to live, or about the condition or quality of your housing? Never Would you like more information on any of the following (please check all that apply)? Not interested Social History: Do you have any history of depression, anxiety, PTSD, or other mood problems? Yes Do you have a history of abuse or trauma that may impact your experience? No Are you currently employed? Yes Depression/Anxiety Screening: denies symptoms of depression. OB Depression and Anxiety Screening- This Encounter (since 11/10/2023) Over the past 2 weeks have you felt down, depressed, or hopeless? Negative Over the past two weeks, have you felt little interest or pleasure in doing things? Negative Feeling nervous, anxious or on edge 0-Not at all Not being able to stop or control worrying 0-Not al all Anxiety Pre-Screening Total (If >/= 3 additional questions will be reviewed) 0 Genetic Screening: Partner present: No Patient verbalized knowledge of partner family health history: No Do you or your partner have any personal or family history of defects not previously discussed: No Do you have history of a complicated by anomaly, genetic condition, or demise: No Low Dose ASA Screening: Screening for low dose aspirin use for the prevention of pre-eclampsia: High risk factors: None Moderate risk ractors: None OB Risk Screening: Completed, no positive findings documented. 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 [employer] Gender: Male PAST MEDICAL HISTORY Diagnosis Date anxiety/depression Exercise-induced asthma has not used an inhaler since 2021 Hypothyroidism IBS (irritable bowel syndrome) no issues since 2018 depression Third degree perineal laceration PAST SURGICAL HISTORY Procedure Laterality Date ENLARGE BREAST WITH IMPLANT PAST SURGICAL HISTORY OF wisdom teeth PAST SURGICAL HISTORY OF mole excision x 2 TONSILLECTOMY & ADENOIDECTOMY <AGE 13 Current Outpatient Medications Medication Sig Dispense Refill levothyroxine (SYNTHROID) 25 mcg tablet Take 1 tablet by mouth once daily. VIT 49-IRON FUM-FOLIC ORAL Take by mouth. sertraline (ZOLOFT) 50 mg tablet Take 50 mg by mouth once daily. No current facility-administered medications for this visit. Allergies As of Date: 11/12/2023 Allergen Noted Reaction ANIMAL DANDER 11/11/2023 Other: See Comments GRASS POLLEN 11/11/2023 Other: See Comments HOUSE DUST 11/11/2023 Other: See Comments reviewed none Does patient have penicillin allergy: No REVIEW OF SYSTEMS: GENERAL: Negative for: Fever or Chills HEENT: Negative for: Headache, Impaired Vision, Ringing in Ears, Nosebleeds NECK: Negative for: Swelling, Pain, Stiffness RESPIRATORY: Negative for: Cough, Shortness of breath, Wheezing GASTROINTESTINAL: Negative for: Heartburn, Constipation, Blood in stool and Positive for: Nausea and Vomiting, diarrhea MUSCULOSKELETAL: Negative for: Muscle or joint pain, stiffness, Joint swelling NEUROLOGIC/PSYCHIATRIC: Negative for: Weakness, Paralysis, Numbness, Tingling, Tremor, Anxiety, Depression, Memory loss SKIN: Negative for: Rash, Itching GENITOURINARY: Negative for: vaginal itching, vaginal discharge, hematuria or dysuria SENSITIVE EXAM: The sensitive examination was discussed with the Patient or Patient's Authorized Senior Storage Administrator. As applicable, any other physician, advance practice provider, medical student, or other health professional student that will be observing or involved in the sensitive examination for educational or training purposes was discussed with the Patient or Authorized Senior Storage Administrator. The Patient or Authorized Senior Storage Administrator has agreed to proceed with the sensitive examination. (Sensitive examination includes inspection and/or palpation of the breasts, pelvis, prostate and anorectal regions). PHYSICAL EXAM: LMP 09/11/2023 GENERAL: pleasant in no apparent distress DERMATOLOGY: Normal, without lesions, non-icteric, and non-hirsute NECK: Supple, full range of motion, no adenopathy, and thyroid normal CHEST: Normal inspiratory effort BREAST: soft, non-tender, symmetric, no dominant mass, normal nipple-areolar complex, no lymphadenopathy, and no nipple discharge ABDOMEN: soft, non-tender, and no masses NEURO: alert and oriented x3,exam grossly non-focal PELVIS: External genitalia normal without lesions. Perineal body intact. No vaginal or cervical lesions. Cervix closed. No adnexal masses or tenderness. Clinical Pelvimetry: Pelvimetry clinically assessed as adequate Limited OB ultrasound exam: single intrauterine , positive cardiac activity, and POCUS performed. +cardiac activity, CRL NOT consistent with LMP. Arlene Pablo APRN.COSMETICIAN ASSESSMENT: 33 year old at 8w5d wks gestational age PLAN: 1) Patient oriented to practice. Patient given new OB orientation folder. Discussed nutrition, folic acid supplementation, dietary guidelines, exercise, smoking, alcohol, caffeine, and drug use. Discussed gestational weight gain guidelines. Discussed routine OB labs including STD/HIV. Discussed how to access Your guide to a health and the Bottom Scrubber. Reviewed midwifery and senior relationship manager services that are available. 2) Screening: Hemoglobin A1C: ordered Baby Aspirin: The patient has been counseled about the potential benefits of low dose aspirin in and our recommendation that this be offered to all patients, regardless of whether they meet the high risk criteria specified above. She Accepts Aneuploidy Screening: Discussed aneuploidy screening, nuchal translucency/first trimester early anatomy ultrasound and NIPT. The risks/benefits and limitations of NIPT/aneuploidy screening were reviewed including the potential for false negative and false positive results. The availability of genetic counseling was reviewed. Information on aneuploidy screening was provided. The patient is uncertain. She will call back if she wants to proceed with screening. Pt aware of timing. Myriad Carrier Screening: Discussed myriad carrier screening. We discussed the availability of professional-society guided carrier screening and reviewed the conditions screened and limitations of screening. The availability of genetic counseling was reviewed. Information on carrier screening was provided. The patient Declines 3) Patient offered option of Virtual Visits. Patient unsure. May consider in future. 4) Thyroid Disease: TSH ordered Follow up in 4 weeks or sooner prn. Arlene Pablo APRN.COSMETICIAN documented in this encounter [facility] 11-11-2023 Telephone encounter Note Patient called back. She will have her phone on her this afternoon for nurse to call her back for questions. Clementine Haque RN [facility] 11-05-2023 Telephone encounter Note Attempted to call patient to go over new ob intake questions. No answer; had to leave a voicemail. Joie Polo MA [facility] 10-26-2023 Telephone encounter Note Name of caller: Rosendo Relation to patient: patient Contact phone number: [phone] Appointment scheduled with: Rosette LOPEZ Appointment date & time: 11/29/23 10:20am Reason for visit (are you having any symptoms) : hypothyroidism, 6-7 weeks Transportation issues/ concerns: no Special accommodations? ( wheel chair, etc) : no Current medications: yes Any refills need: yes Any chronic conditions the provider should be aware of: no [facility] 10-26-2023 Miscellaneous Notes Name of caller: Rosendo Relation to patient: patient Contact phone number: [phone] Appointment scheduled with: Rosette LOPEZ Appointment date & time: 11/29/23 10:20am Reason for visit (are you having any symptoms) : hypothyroidism, 6-7 weeks Transportation issues/ concerns: no Special accommodations? ( wheel chair, etc) : no Current medications: yes Any refills need: yes Any chronic conditions the provider should be aware of: no documented in this encounter [facility] 03-10-2023 History of Presen t illness Narrative Subjective Patient ID: Rosendo Roth is a 32 y.o. female who presents for Annual Exam, Depression, Hypothyroidism, and Rash. HPI Annual physical Eats a generally healthy diet Exercises Denies any chest pain,SOB No Abdominal pain No black or bloody stools Urination/BM normal Had a baby in July. She is . Has had difficulty with depression in the past. Doing well with Sertraline. No chest pain/SOB Hypothyroidism Taking Synthroid 25 mcg Taking on an empty stomach No significant weight loss/gain No heat/cold intolerances No increase in hair loss/dry skin Skin issues. Admits to redness, patchy red spots, dry flaky skin. Noted a few days ago. Has tried Hydrocortisone cream, no relief. Admits to ringworm a few months ago. No other concern / question Review of systems ; Patient seen today for exam denies any problems with headaches or vision, denies any shortness of breath chest pain nausea or vomiting, no black stool no blood in the stool no heartburn type symptoms denies any problems with constipation or diarrhea, and no dysuria-type symptoms The patient's allergies medications were reviewed with them today The patient's social family and surgical history or also reviewed here today, along with her past medical history. Objective Alert and active in no acute distress HEENT TMs clear oropharynx negative nares clear no drainage noted neck supple With no adenopathy Heart regular rate and rhythm without murmur and no carotid bruits Lungs- clear to auscultation bilaterally, no wheeze or rhonchi noted Thyroid -negative masses or nodularity Abdomen- soft times four quadrants , bowel sounds positive no masses or organomegaly, negative tenderness guarding or rebound Neurological exam unremarkable- DTRs in upper and lower extremities within normal limits. skin -positive circular like rash on her lower legs and upper arm consistent with tinea BP 110/64 Pulse 65 Temp 37.2 C (98.9 F) (Temporal) Ht 1.727 m (5' 8) Wt 70.8 kg (156 lb) BMI 23.72 kg/m No Known Allergies Assessment/Plan Problem List Items Addressed This Visit Subclinical hypothyroidism Routine general medical examination at a health care facility Other Visit Diagnoses Rash Tinea Recommend Aquaphor on hands before bed. Lotrisone cream prescribed today for tinea. If anything worsens or changes please call us at once, follow up in the office as planned. Scribe Attestation By signing my name below, I, Elizabeth Sunshine MA, Scribe attest that this documentation has been prepared under the direction and in the presence of Bridget Abdul DO. documented in this encounter [facility] Work Phone: 02-04-2023 History of Presen t illness Narrative [facility] Department of Urogynecology Namita Dye MD, MPH [phone] ASSESSMENT AND PLAN: 32 y.o. female presenting in the [facility] clinic following 3a perineal laceration s/p on 08/12/2022. Currently attending PFPT with Meg Gonzalez to assess RAKAN with urge and stress with urinary sx improvement. Diagnoses: #1 Third degree perineal laceration #2 Mixed urinary incontinence, urge and stress Plan: 1. Third degree perineal laceration (3a) - We discussed she is considered to be in the healing period for 6 months after delivery. - She no longer has dyspareunia after she has worked on massage. 2. Mixed urinary incontinence, urge and stress - She has had good sx improvement since starting PFPT and feels it has helped. Endorses having control of her bladder. - Continue HEP. Follow-up PRN with Dr. Dye. Scribe Attestation: I, Gala Pike, am scribing for virtually, and in the presence Namita Dye MD MPH on 02/04/23 at 2:34 PM. Problem List Items Addressed This Visit None I Dr. Dye, personally performed the services described in the documentation as scribed in my presence and confirm it is both complete and accurate. Namita Dye MD, MPH, FACOG Established HISTORY OF PRESENT ILLNESS: Rosendo Roth is a 32 y.o. female who presents in [facility] for follow up on 3a perineal laceration s/p on 08/12/2022. Record Review: - 10/01/22 Dr. Namita Dye note reviewed: 3a perineal lac - Overall healing well, advised to use lubricant with intercourse since she is which can cause vaginal dryness. RAKAN - Continue PFPT. - 09/10/2022 Dr. Dye note reviewed: 32yo with a 3a perineal laceration s/p vaginal delivery. She was endorsing RAKAN with stress and urge - she was referred to PFPT and was given Truly Carlos's name. Her exam showed a small skin bridge that was 1cm in height but unremarkable and a 2mm separation near her rectum with PDS suture poking through. RTC in x1 month. - Per OBGYN discharge summary on 08/14/2022, she had hypothyroidism and was on Levothyroxine. Patient was discharged with MiraLAX, Colace, her Albuterol, and Tylenol. - S/p on 08/12/2022. Urinary Symptoms: - PFPT was very helpful for her. She feels her bladder control is good. Bowel Symptoms: - Reports having good bowel control. : - Denies dyspareunia. She did have dyspareunia, but worked on massage which has helped. - She has discomfort when pushing on her abdominal muscles. Pain does not feel like a trigger point or charley horse that is worsening. - She has been trying to lose weight by working out, but says she has been unable to lose weight so far. Past Medical History: Past Medical History: Diagnosis Date Urinary tract infection, site not specified 03/14/2019 Acute UTI Past Surgical History: No past surgical history on file. Medications: Prior to Admission medications Medication Sig Start Date End Date Taking? Authorizing Provider levothyroxine (Synthroid, Levoxyl) 25 mcg tablet TAKE 1 TABLET BY MOUTH EVERY DAY DIRECTED 10/12/22 Bridget Abdul DO norethindrone (Micronor) 0.35 mg tablet Take 1 tablet (0.35 mg) by mouth once daily. 12/10/22 12/10/23 SMITH Martinez, RUSLAN-COSMETICIAN no115/iron/folic acid ( 19 ORAL) Take by mouth. Historical Provider, sertraline (Zoloft) 50 mg tablet Take 1 tablet (50 mg) by mouth once daily. Historical Provider, MD DELGADO Review of Systems PHYSICAL EXAM: BP 113/71 (BP Location: Right arm, Patient Position: Sitting, BP Cuff Size: Adult) Pulse 65 Resp 18 Ht 1.626 m (5' 4.02) Wt 58.5 kg (129 lb) BMI 22.13 kg/m No LMP recorded. Declines banking consultant for physical exam. Well developed, well nourished, in no apparent distress. Neurologic/Psychiatric: Awake, Alert and Oriented times 3. Affect normal. Data and DIAGNOSTIC STUDIES REVIEWED No results found. No results found for: URINECULTURE, UAMICCOMM Lab Results Component Value Date GLUCOSE 82 10/10/2021 CALCIUM 9.2 10/10/2021 NA 141 10/10/2021 K 4.3 10/10/2021 CO2 27 10/10/2021 CL 108 (H) 10/10/2021 BUN 10 10/10/2021 CREATININE 0.81 10/10/2021 Lab Results Component Value Date WBC 16.3 (H) 08/12/2022 HGB 13.3 08/12/2022 HCT 38.0 08/12/2022 MCV 93 08/12/2022 PLT 230 08/12/2022 documented in this encounter [facility] Work Phone: 02-04-2023 Evaluation note Diagnosis Type 3a perineal laceration- Primary documented in this encounter [facility] Work Phone: 1(484) 126-786508-11-2023 History of Present illness Narrative* Testing results: PVR 96ml and PVR results available and reviewed, but UA results not available. * 32 year old female patient who presents in [facility] clinic for follow up on 3a perineal lacerations/p on 08/12/2022. She was previously referred to PFPT for RAKAN with urge and stress. * Perineal Symptoms: * - Denies feeling any perineal pain. * - No constipation. * - Denies ABL and flatal incontinence. * Urinary Symptoms: * - Started going to PFPT for her mixed urinary incontinence sx and has gone to PT twice so far - sheis happy with seeing Truly Gonzalez and notes that it has been very helpful to improve her urinary sx.She is doing internal massages and Kegel exercises. * - Her urinary incontinence is significantly improved since going to PFPT. * : * - She is sleeping better now and her baby is sleeping better too. * - Currently and pumping to bottle feed. * - Has returned to intercourse - the first time was painful and notes that this has significantly improved after the initial intercourse. * Records Review: * - 09/10/2022 Dr. Dye note reviewed: 32yo with a 3a perineal laceration s/p vaginal delivery. She was endorsing RAKAN with stress and urge - she was referred to PFPT and was given Truly Gonzalez's name. Her exam showed a small skin bridge that was 1cm in height but unremarkable and a 2mm separation near her rectum with PDS suture poking through. RTC in x1 month. * - Per OBGYN discharge summary on 08/14/2022, she had hypothyroidism and was on Levothyroxine. Patient was discharged with MiraLAX, Colace, her Albuterol, and Tylenol. [id number] [address] [place] Work Phone: [phone]) 251-857006-23-2023 NoteSend Summary: Note Recipients: Discharge: Summary: Admission Date: .12-Aug-2022 06:25:00 Discharge Date: 14-Aug-2022 Attending Physician at Discharge: Ashlyn Grajeda Admission Reason: Delivery Final Discharge Diagnoses: Third degree perineal laceration during delivery, unspecified subtype Procedures: Date: 12-Aug-2022 20:38:00 Procedure Name: Laceration repair Condition at Discharge: Satisfactory Disposition at Discharge: .Home Vital Signs: T PRBPMAPSpO2 [id number]% Date/Time08/14 8: 8: 8: 8: 8: 8:08 Range(36.3C - 36.7C ) (62 - 87 ) (16 - 18 ) (100 - 118 )/ (63 - 77 ) (75 - 90 ) (96% - 98% ) Date: Weight/Scale Type:Height: 12-Aug-2022 08:5376.9 kg / pgovakfg523.4 cm Physical Exam: General: well appearing, well-nourished, Obstetric: abdomen soft/non-tender, fundus firm below umbilicus, lochia light Skin: No rashes/lesions/erythema Breast: No masses, nipple discharge Neuro: A/Ox3, conversational GI: +BS, +flatus Respiratory: Even and unlabored on RA, LSCTA BL Cardiovascular: No edema, discoloration, or pain in BLE Psych: appropriate mood and affect perineal pain well controlled denies symptoms of depression/anxiety Hospital Course: 32 year old at 38.5 weeks by 6.5 week u/s presents to triage for contractions that began at 2230 on 08/11 and have gotten worse over the course of the night until they were every 2-3mins apart at 0430 this morning. Bloody show noted by patient. Denies LOF. Endorses good movement. notable for: anxiety/depression; was on Prozac, discontinued when began attempting to conceive, no meds currently exercise-induced asthma; uses rescue inhaler PRN hypothyroidism; on Synthroid; TSH 1.59 and T4 .95 on 07/24 GBS negative Now PPD#2 s/p on 08/12 - continue routine care - pain well controlled on po medications - dvt risk score 2, for ppx SCDs - Rh: +, no indication for rhogam - Hgb: 13.3 Maternal Well-Being - emotional support provided - bonding with infant - denies symptoms of depression/anxiety, discussed PPD - Plans to f/u with psychiatry 2-3 weeks Feeding - /pumping encouraged; consult prn Contraception - POPs Dispo - appropriate for d/c home, meeting all milestones - for f/u in [facility] clinic 2 weeks, 4-6 weeks with Primary OB provider Ashlyn Grajeda APRN-COSMETICIAN Discharge Information: and Continuing Care: Lab Results - Pending: None Radiology Results - Pending: None [place] Suicide Risk: negative Discharge Instructions: Activity: Return to normal activity as tolerated Nutrition/Diet: Regular Follow Up Appointments: Follow-Up - OB Provider: Physician/Dept/Service: OB Provider Melissa Fang Call to Schedule in: checkup Scheduled Date/Time: 21-Sep-2022 09:45 Location: [address] [place] [address] Discharge Medications: Home Medication levothyroxine 25 mcg (0.025 mg) oral capsule - 1 cap(s) orally once a day PNV oral tablet - 1 tab(s) orally once a day ibuprofen 600 mg oral tablet - 1 tab(s) orally every 6 hours -.Meds to Beds Danyell 0.35 mg oral tablet - 1 tab(s) orally once a day -.Meds to Beds PRN Medication polyethylene glycol 3350 oral powder for reconstitution - 17 gram(s) orally 2 times a day, As Needed -.Meds to Beds Colace 100 mg oral capsule - 1 cap(s) orally 2 times a day, As Needed -.Meds to Beds Albuterol (Eqv-Proventil HFA) 90 mcg/inh inhalation aerosol - 2 puff(s) inhaled every 6 hours, As Needed acetaminophen 325 mg oral capsule - 3 cap(s) orally every 6 hours, As Needed -.Meds to Beds DNR Status: Code StatusCode Status order at time of discharge: Full Code Electronic Signatures: Ashlyn Grajeda (CLIENT CONSULTANT-COSMETICIAN) (Signed 14-Aug-2022 14:19) Authored: Send Summary, Summary Content, Ongoing Care, DNR Status, Note Completion Last Updated: 14-Aug-2022 14:19 by Ashlyn Grajeda (CLIENT CONSULTANT-COSMETICIAN)[facility]06-21-2023 NotePre-procedure Verification and Time Out: Pre-Procedure Verification and Time Out: Procedure Locationbedside PRE-PROCEDURE Verificationcompleted TIME OUT - Final Verificationcompleted immediately prior to procedure start General Information: Anesthesia Critical Care: Non-Anesthesia Date/Time of Procedure: 12-Aug-2022 16:30 Indication(s)/Pre Procedure Diagnoses: Perineal laceration 3a Post-Procedure Diagnosis: Same Procedure Name: Laceration repair Findings: Laceration involving <50% of external anal sphincter Procedure performed by: Loly Courtney [employer] Director(s): Paco Garcia Estimated Blood Loss (mL): 5 Specimen: no Informed Consent: written consent obtained, verbal consent obtained Procedure Details: Procedure Details: Patient was already in the dorsal lithotomy position on evaluation. Perineal laceration was found to be 3a. External anal sphincter was repaired with four interrupted figure of eight stitches of 3-0 PDS in the PISA fashion. 2nd degree was then repaired by BHAVIN Davey, see delivery note for additional details. She will receive a dose of Ancef and Flagyl. Tolerance: good Complications: None apparent Prep: Patient Position: lithotomy Site Prep: usual sterile procedure followed Anesthesia: Anesthesia: Epidural Attestation: Note Completion: I am a:Resident/Fellow Attending AttestationI was present for singh portions of the procedure and the procedure lasted longer than 5 minutes. Electronic Signatures: Sandra Courtney) (Signed 13-Aug-2022 10:13) Authored: Note Completion Co-Signer: Pre-procedure Verification and Time Out, General Information, Procedure Details, Prep/Sedation, Note Completion Hannah Garcia (Resident)) (Signed 12-Aug-2022 20:43) Authored: Pre-procedure Verification and Time Out, General Information, Procedure Details, Prep/Sedation, Note Completion Last Updated: 13-Aug-2022 10:13 by Sandra Courtney)[facility]06-21-2023 History of Present illness Narrative* The patient is being seen for follow up. The patient is status post vaginal delivery. Obstetrical complications include third degree tear. Delivery date was 08/12/2022. The baby is a boy. The baby's name is RUFUS. weight was 7 lbs, 3 oz. The patient did not have any complications. He was circumcised. The baby is currently living at home. The baby is and bottle feeding. She is a 1 Para 1. The patient has had no menses since delivery. For contraception, she uses oral contraceptives. Symptoms: irregular bleeding. The patient is currently experiencing symptoms. No associated symptoms are reported. * Established patient presenting for visit * Patient had an on 08/12 complicated by a third degree laceration. She was seen in the [facility] clinic - overall healing well at that time. She was given a referral for pelvic PT * Anxiety/depression - restarted zoloft 50mg, mood doing btter since starting this a few weeks ago, follows with her psychiatrist * Hypothyroidism - on synthroid * POPs for contraception - started it 2 weeks ago * Pap history: neg pap/HPV 12/2021 [facility] [facility] DO Work Phone: [phone]) 767-261906-21-2023 History of Present illness Narrative* Testing results: PVR 96ml and PVR results available and reviewed, but UA results not available. * 32 year old female patient who presents in [facility] clinic for follow up on 3a perineal lacerations/p on 08/12/2022. She was previously referred to PFPT for RAKAN with urge and stress. * Perineal Symptoms: * - Denies feeling any perineal pain. * - No constipation. * - Denies ABL and flatal incontinence. * Urinary Symptoms: * - Started going to PFPT for her mixed urinary incontinence sx and has gone to PT twice so far - sheis happy with seeing Meg Gonzalez and notes that it has been very helpful to improve her urinary sx.She is doing internal massages and Kegel exercises. * - Her urinary incontinence is significantly improved since going to PFPT. * : * - She is sleeping better now and her baby is sleeping better too. * - Currently and pumping to bottle feed. * - Has returned to intercourse - the first time was painful and notes that this has significantly improved after the initial intercourse. * Records Review: * - 09/10/2022 Dr. Dye note reviewed: 32yo with a 3a perineal laceration s/p vaginal delivery. She was endorsing RAKAN with stress and urge - she was referred to PFPT and was given Meg Gonzalez's name. Her exam showed a small skin bridge that was 1cm in height but unremarkable and a 2mm separation near her rectum with PDS suture poking through. RTC in x1 month. * - Per OBGYN discharge summary on 08/14/2022, she had hypothyroidism and was on Levothyroxine. Patient was discharged with MiraLAX, Colace, her Albuterol, and Tylenol. [id number] DO Work Phone: [phone] 339-411606-21-2023 NoteClinical Event: Clinical Event Note: TopicLabor Progress Note Details S: patient laying in left lateral, sleeping and comfortable with epidural. O: Cervical Exam: deferred FHR Baseline: 145 Variability: mod Accels: + Decels: - TOCO: Q2-4mins; toco not tracing adequately at this time due to patient laying in left lateral Membrane status: intact A: 32 year old at 38.5 weeks latent labor category 1 tracing GBS negative P: SVE PRN encourage frequent position changes augment with pitocin/AROM PRN anticipate K RUSLAN Batres CNM Electronic Signatures: Francy Batres (RUSLAN-BHAVIN) (Signed 12-Aug-2022 11:51) Authored: Clinical Event Note Last Updated: 12-Aug-2022 11:51 by Francy Batres (SMITH)[facility]06-21-2023 NoteHPI/OB History: Care Provider: Melissa Fang Descriptive Info: HPI S: 32 year old at 38.5 weeks by 6.5 week u/s presents to triage for contractions that began at 2230 on 08/11 and have gotten worse over the course of the night until they were every 2-3mins apart at 0430 this morning. Bloody show noted by patient. Denies LOF. Endorses good movement. 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 or social history Labs: Labs: Labs: Blood Typed Date: 05-Jan-2022 Blood Type: O positive Blood Type Comments: Selected manually 'O positive' at 12-Aug-2022 08:32 Antibody Screen Results: negative Rhogam Comments: Selected manually 'O positive' at 12-Aug-2022 08:32 Chlamydia Date: 26-Dec-2021 Chlamydia Results: negative Gonorrhea Date: 26-Dec-2021 Gonorrhea Results: negative Group B Strep Date: 24-Jul-2022 Strep Results: negative GCT (dd-mmm-yy): 26-May-2022 GCT result: 73 HBsAG Date: 05-Jan-2022 HBsAG Results: negative HIV Date: 05-Jan-2022 HIV Results: negative Rubella Date: 05-Jan-2022 Rubella Results: immune Rubella Comments: Result Value POSITIVE Syphilis (mmm-dd-yyyy): 26-May-2022 Syphilis Results: negative Antepartum/: Antepartum/PP: Date Earliest [id number] EGA at that study (weeks)6.5 YUSUF by [id number] Final [id number] Current EGA:38.5 Patient is > or = 35.0 wks EGAyes Determined byLeopolds EFW (kg)3.402 kilogram(s) EFW (lb)7 pound(s) EFW (oz)8 ounce(s) Presentationcephalic presentation verified bybedside ultrasound, cervical exam Vaginal BleedingYes Contractions/Abdominal PainYes Discharge/Loss of FluidNo MovementGood Hemorrhage Low Risk Factors (T&S)patient with no medium or high risk factors Hemorrhage Risk Assessmenthemorrhage risk completed on admission Hemorrhage Risk ScorePatient is at Low Risk for an OB hemorrhage. Order Type Screen. TOLACno Did this patient receive progesterone in any form to prevent premature deliveryno Does patient desire postplacental IUDuncertain Social History: Social History: Smoking Statusnever smoker (1) Alcohol Usedenies(1) Drug Usedenies (1) Drug 2 Usedenies (1) Allergies: No Known Allergies: Medications Prior to Admission: levothyroxine 25 mcg (0.025 mg) oral capsule: 1 cap(s) orally once a day. Review of Systems: Constitutional: NEGATIVE: Fever, Chills, Anorexia, Weight Loss, Malaise Eyes: NEGATIVE: Blurry Vision, Drainage, Diploplia, Redness, Vision Loss/ Change ENMT: NEGATIVE: Nasal Discharge, Nasal Congestion, Ear Pain, Mouth Pain, Throat Pain Respiratory: NEGATIVE: Dry Cough, Productive Cough, Hemoptysis, Wheezing, Shortness of Breath Cardiac: NEGATIVE: Chest Pain, Dyspnea on Exertion, Orthopnea, Palpitations, Syncope Gastrointestinal: POSITIVE: Nausea, Vomiting, Abdominal Pain; NEGATIVE: Diarrhea, Constipation; COMMENTS: ctx Genitourinary: NEGATIVE: Discharge, Dysuria, Flank Pain, Frequency, Hematuria Musculoskeletal: NEGATIVE: Decreased ROM, Pain, Swelling, Stiffness, Weakness Neurological: NEGATIVE: Dizziness, Confusion, Headache, Seizures, Syncope Psychiatric: NEGATIVE: Mood Changes, Anxiety, Hallucinations, Sleep Changes, Suicidal Ideas Skin: NEGATIVE: Mass, Pain, Pruritus, Rash, Ulcer Endocrine: NEGATIVE: Heat Intolerance, Cold Intolerance, Sweat, Polyuria, Thirst Hematologic/Lymph: NEGATIVE: Anemia, Bruising, Easy Bleeding, Night Sweats, Petechiae Allergic/Immunologic: NEGATIVE: Anaphylaxis, Itchy/ Teary Eyes, Itching, Sneezing, Swelling Breast: NEGATIVE: Pain, Mass, Discharge, Nipple Itching, Gynecomastia Objective: Objective Information: T PRBPMAPSpO2 [id number]% Date/Time08/12 6: 7: 6: 7: 7: 7:32 Range(36.9C - 36.9C ) (52 - 90 ) (18 - 18 ) (79 - 123 )/ (40 - 79 ) (54 - 95 ) (94% - 100% ) Highest temp of 36.9 C was recorded at 08/12 6:39 Pain reported at 08/12 7:10: 0 = None Physical Exam by System: Constitutional: alert, oriented Obstetric: Cervical Exam: /-1 at 0710 with bloody show; made change to /-1 at 0819 with continued bloody show when called to triage by RN due to patient asking for pain medication and vomiting FHR Baseline: 125 Variability: mod Accels: + Decels: - TOCO: Q2-3mins; palpating moderate Membrane status: intact Respiratory/Thorax: normal respiratory effort Extremities: no calf tenderness, reflexes 2+ Psychological: appropriate affect Skin: no rashes (more content not included)...[facility] 12-26-2021 NoteAccession #: [id number] Date of Procedure: 12/26/2021 Pathologist: [facility], Cytology Date Reported: 01/02/2022 Date Received: 12/26/2021 Submitting Physician: MELISSA FANG MD FINAL CYTOLOGICAL INTERPRETATION A. THINPREP PAP CERVICAL: Specimen adequacy: SATISFACTORY FOR EVALUATION. Quality Indicator: Endocervical/transformation zone component is present. General Categorization: NEGATIVE FOR INTRAEPITHELIAL LESION OR MALIGNANCY. HIGH RISK HPV TEST RESULT: HPV GENOTYPE 16 NEGATIVE HPV GENOTYPE 18 NEGATIVE HPV GENOTYPE OTHER NEGATIVE Reference Range: Negative Testing for high-risk (HR) type of human papilloma virus (HPV) is performed by the Rosalina geronimo HPV Test. The geronimo HPV Test is a qualitative polymerase chain reaction that amplifies DNA of HPV16, HPV18 and 12 other high-risk HPV types (31, 33, 35, 39, 45, 51, 52, 56, 58, 59, 66, and 68) associated with cervical cancer and its precursor lesions. A positive result indicates the presence of HPV DNA due to one or more of the 14 genotypes: 16, 18, 31, 33, 35, 39, 45, 51, 52, 56, 58, 59, 66, and 68. Negative results indicate HPV DNA concentrations are undetectable or below the pre-set threshold for detection. False negative results may be associated with unoptimized sampling. A negative HR HPV result does not exclude the possibility of future cytologic HSIL or underlying CIN2-3 or cancer. This test is approved for cervical specimens by the [place] Food and Drug Administration. Results of this test should be interpreted in conjunction with the patient?s Pap test results. Please refer to ASC current guidelines for the use of HPV DNA testing, result interpretation, and patient management. The performance of this test was verified by the [facility] at [facility]. The lab is certified under the Clinical Laboratory Amendments of 1988 (CLIA 88) as qualified to perform high complexity clinical laboratory testing. This specimen has been analyzed by the ThinPrep Imaging System ([employer] an automated imaging and review system, which assists the laboratory in evaluating cells on ThinPrep Pap tests. Following automated imaging, selected lemons from every slide were reviewed by a technical data analyst and/or pathologist. Electronically Signed Out By [facility], Cytology//JIMMY By the signature on this report, the individual or group listed as making the Final Interpretation/Diagnosis certifies that they have reviewed this case. Diagnostic interpretation performed at [facility] [id number] [facility] [id number] Educational Note: Cervical cytology is a screening procedure primarily for squamous cancers and precursors and has associated false-negative and false-positive results as evidenced by published data. Your patient?s test should be interpreted in this context, together with patient?s history and clinical findings. Regular sampling and follow-up of unexplained clinical signs and symptoms are recommended to minimize false negative results. Clinical History Date of Last Menstrual Period: 10/23/2021 Other Clinical Conditions: COTEST HPV(Genotype) except for ASC-H, HSIL, Carcinoma - Include HPV Genotype testing Clinical Diagnosis History: care - (Z34.90) Source of Specimen A: THINPREP PAP CERVICAL [facility] Department of Pathology [id number] [address]Comment on above:Performed By: #### GCCHA #### [facility] [address] [place], [place] [id number] noteNo assessment information availableWMarietta Memorial Hospital Work Phone: Evaluation note* Constitutional: alert, orientedSkin: no rashes or lesionsRespiratory/Thorax: normal respiratory effortExtremities: no calf tenderness, reflexes 2+Psychological: appropriate affect [facility]* Diagnosis Routine general medical examination at a health care facility- Primary Subclinical hypothyroidism Other specified acquired hypothyroidism Rash Rash and other nonspecific skin eruption Tinea Dermatophytosis of unspecified site documented in this encounter [facility] Work Phone: Evaluation note* Diagnosis Encounter for supervision of normal in multigravida in first trimester- Primary Hypothyroidism, unspecified type Third degree perineal laceration Third-degree perineal laceration, unspecified as to episode of care in History of depression 7 weeks gestation of state, incidental [facility] [place] [facility]* Diagnosis Hypothyroidism, unspecified type- Primary Less than 8 weeks gestation of Exercise-induced asthma Exercise induced bronchospasm Anxiety and depression Screening for cholesterol level [facility] [place] [facility]* Diagnosis Hypothyroidism, unspecified type- Primary [facility] [place] [facility]* Diagnosis 11 weeks gestation of - Primary state, incidental Encounter for supervision of normal in multigravida in first trimester [facility] [place] [facility]* Diagnosis Hypothyroidism, unspecified type- Primary documented in this encounter [facility] note* Diagnosis Supervision of high risk in second trimester- Primary Unspecified high-risk 16 weeks gestation of state, incidental Third degree perineal laceration Third-degree perineal laceration, unspecified as to episode of care in Hypothyroidism, unspecified type Nausea and vomiting during documented [facility] [place] [facility]* Diagnosis Hypothyroidism, unspecified type- Primary Less than 8 weeks gestation of Exercise-induced asthma Exercise induced bronchospasm Anxiety and depression Screening for cholesterol level Hypothyroidism, unspecified type documented in this encounter 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 note* Diagnosis Hypothyroidism, unspecified type- Primary Less than 8 weeks gestation of Exercise-induced asthma Exercise induced bronchospasm Anxiety and depression Screening for cholesterol level Hypothyroidism, unspecified type documented in this encounter [facility] note* Diagnosis Hypothyroidism, unspecified type- Primary Less than 8 weeks gestation of Exercise-induced asthma Exercise induced bronchospasm Anxiety and depression Screening for cholesterol level Hypothyroidism, unspecified type documented in this encounter [facility] note* Diagnosis Maternal care for (suspected) abnormality and damage, unspecified, fetus 1 [O35.9XX1]- Primary documented in this encounter [facility] note* Diagnosis Maternal care for other (suspected) abnormality and damage, fetus 1- Primary documented in this encounter [facility] note* Diagnosis Supervision of high risk in second trimester- Primary Unspecified high-risk Screening for diabetes mellitus 25 weeks gestation of state, incidental documented in this encounter [facility] note* Diagnosis abnormality in antepartum , single or unspecified fetus- Primary [facility] Diagnosis Hypothyroidism, unspecified type- Primary Less than 8 weeks gestation of Exercise-induced asthma Exercise induced bronchospasm Anxiety and depression Screening for cholesterol level Hypothyroidism, unspecified type documented in this encounter [facility] note* Diagnosis Suspected anomaly, antepartum, single or unspecified fetus- Primary documented in [facility] [place] [facility]* Diagnosis Supervision of high risk in third trimester- Primary Unspecified high-risk documented in this encounter [facility] note* Diagnosis Abnormal ultrasound- Primary Abnormal findings on screening Supervision of high risk in third trimester Unspecified high-risk documented in this encounter [facility] note* Diagnosis 29 weeks gestation of - Primary state, incidental Supervision of high risk in second trimester Unspecified high-risk Need for vaccination Need for prophylactic vaccination and inoculation against unspecified single disease documented in this encounter [facility] note* Diagnosis High-risk in third trimester- Primary Hypothyroidism, unspecified type Abnormal ultrasonic finding on screening of mother Abnormal findings on screening 30 weeks gestation of state, incidental documented in this encounter [facility] note* Diagnosis Need for observation and evaluation of for sepsis- Primary Observation and evaluation of newborns and infants for suspected infectious condition not found documented in this encounter [facility] note* Diagnosis Hypothyroidism, unspecified type- Primary Less than 8 weeks gestation of Exercise-induced asthma Exercise induced bronchospasm Anxiety and depression Screening for cholesterol level CHRISTOPHER (generalized anxiety disorder) Generalized anxiety disorder Recurrent major depressive disorder, in full remission (HCC) documented in this encounter [facility] note* Diagnosis care and examination (HCC)- Primary Routine follow-up Screening for cervical cancer Screening for malignant neoplasm of the cervix Encounter for screening for human papillomavirus (HPV) Special screening examination for human papillomavirus (HPV) documented in this encounter [facility] note* Diagnosis Hypothyroidism, unspecified type- Primary Less than 8 weeks gestation of Exercise-induced asthma Exercise induced bronchospasm Anxiety and depression Screening for cholesterol level Hypothyroidism, unspecified type documented in this encounter [facility] note* Diagnosis Hypothyroidism, unspecified type- Primary Less than 8 weeks gestation of Exercise-induced asthma Exercise induced bronchospasm Anxiety and depression Screening for cholesterol level Hypothyroidism, unspecified type- Primary documented in this encounter [facility] note* Diagnosis Irregular intermenstrual bleeding- Primary Metrorrhagia documented in this encounter [facility] note* Diagnosis Hypothyroidism, unspecified type- Primary Less than 8 weeks gestation of Exercise-induced asthma Exercise induced bronchospasm Anxiety and depression Screening for cholesterol level Annual physical exam- Primary Routine general medical examination at a health care facility Acquired hypothyroidism Unspecified hypothyroidism Anxiety and depression Screening for lipid disorders Screening for diabetes mellitus Influenza vaccine refused documented in this encounter [facility] note* Diagnosis Hypothyroidism, unspecified type- Primary Less than 8 weeks gestation of Exercise-induced asthma Exercise induced bronchospasm Anxiety and depression Screening for cholesterol level Annual physical exam- Primary Routine general medical examination at a health care facility Acquired hypothyroidism Unspecified hypothyroidism Anxiety and depression Screening for lipid disorders Screening for diabetes mellitus Influenza vaccine refused Hypothyroidism, unspecified type documented in this encounter Summ HealthHistory of Present illness [id number] female with a 2-day history of dysuria and urinary frequency. No fever or blood in the urine. She does typically get UTIs yearly. Review of systems is otherwise negative for constitutional, ear nose and throat, neck, heart, lungs, and abdomen.[facility] Work Phone: History of Present illness [id number] female with a 2-day history of dysuria and urinary frequency. No fever or blood in the urine. She does typically get UTIs yearly. Review of systems is otherwise negative for constitutional, ear nose and throat, neck, heart, lungs, and abdomen.[facility] Work Phone: History of Present illness Narrative* ESTABLISH CARE * FATIGUE * HIVES * WEIGHT GAIN * Presents today to for above reasons * Pt last PCP was: Unknown. 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 * Pt states she can sometimes sleep 14 hours * Pt has been dx'd with IBS and will sometimes have flair up. Has not occurred in 8 years * Pt feels this all stress related. * Pt also gets stress hives * Would like to discuss options * Pt sees Dr. Cruz for psych, at [facility] in [place] * Taking current medications which were reviewed. * Problem list discussed. * Over all doing well * Eating okay * Drinking plenty of fluids * Stays active. * No other problems/concerns [facility] [place] [address] Work Phone: History of Present illness Narrative* Testing results: UA results available and reviewed, but PVR results not available. * General symptoms: The patient is currently not experiencing vaginal symptoms, The patient is currently not experiencing pelvic symptoms and The patient is currently not experiencing urinary symptoms. * 32 year old female patient who presents to the clinic today for third degree laceration. * Delivered: 08/12/22 delivery complicated by third degree laceration. Marcella Fang was her doctor. * Gestational age: 38.5 weeks * Delivery type: * weight: Male baby weighed 3.26 kilograms * Laceration type: 3a perineal laceration * Mood/Sleep: She is getting some sleep now and has a routine with her baby. The first 2 weeks were difficult and she had little sleep. Her , mother, and mother in law help with the baby. She started Zoloft last Wednesday. has been on prozax in the past, before and stopped this during her * Pain control: She takes Tylenol and Motrin as needed, but has not taken any pain medication for thelast few days. Occasionally has soreness with sitting. Denies pelvic pain. Endorses soreness and itching at the perineum. * Breast Feeding: yes, she also pumps as well * Bowel regimen: Patient is on MiraLAX once daily. She discontinued Colace. BMs 1x daily; soft and easy to pass. * UI: Leaks with stress such as laugh or sneeze. She occasionally would have YOU during , but YOU has worsened after delivery. She tries to do Kegels, but is unable to hold her urine. She wears pads for discharge after delivery, not due to urinary leakage. Patient does leak with urge, which is new after her delivery. * ABL: denies, but reports she is passing more gas than usual * flatal incontinence: denies * Feels she empties her bladder completely. * Interval History: * - She has a family hx of depression. * - Patient was on Prozac for years and discontinued once she got . * Records Review: * - Per discharge summary on 08/14/22, she had hypothyroidism and was on Levothyroxine. Patient was discharged with MiraLAX, Colace, her Albuterol, and Tylenol. [id number] Work Phone: History of Present illness NarrativeTesting results: PVR by bladder scan=96ml.[id number] Work Phone: Hospital Discharge instructions* Activity:Return to normal activity as tolerated. * Patient Instructions:Pelvic Rest: DO NOT place anything in vagina until cleared by OB Provider. * Follow-Up - OB Provider:Physician/Dept/Service: OB Provider, Melissa Calixto to Schedule in: checkupScheduled Date/Time: 21-Sep-2022 09:45Location: [address], [place], [place] [address]Phone Number: * Gold Form - Other Clinicians:Nursing Instructions: The [place] [employer] recommends that pacifier use is best avoided during the initiation of and used only after is well established. In some infants, early pacifier use may interfere with establishment of good practices, whereas in others it may indicate the presence of a problem that requires intervention. Use of a pacifier may cause problems with latching, and lead to decreased milk supply by missing feeding opportunities. Pacifiers may be used during painful procedures, but are not otherwise recommended while the is learning to breastfeed. Other Clinician Instructions: Any woman can have complications after the of a baby including a blood clot, a heart problem, hypertensive disorder/eclampsia, depression, hemorrhage, or infection. Notify all providers of your delivery date up to one year after .* Call 911 or go to nearest emergency room right away if you have: PAIN or pressure in chest; OBSTRUCTED breathing or shortness of breath; SEIZURES; THOUGHTS of hurting yourself or your baby; heart palpitations/racing; change in alertness/confusion.Call your provider if you have: BLEEDING, soaking through a pad/hour, or blood clots the size of an eggor bigger; INCISION (episiotomy stitches or site) that is not healing (increased redness,pain, drainage/pus, or separation); RED or swollen leg/calf that is painful or warm to touch, especially in one leg more than the other; TEMPERATURE of 100.4 F or higher or chills; HEADACHE that doesnot get better with medicine, rest or hydration, or bad headache with vision changes like spots or flashing lights; increased swelling of face, hands or legs; severe cramps or upper right belly pain;red or swollen breast that is painful or warm to touch; an unusual, foul odor from your vaginal discharge; pain, burning, or difficulty during urination; severe constipation (more than 5 days); feelings of depression (such as depressed mood, loss of interest in enjoyable things, unable to care for yourself, trouble sleeping, lack of appetite, or feeling worthless). If you can t reach your provider or symptoms worsen, call 911 or go to nearest emergency room. *Information obtained from [facility] s:Save Your Life: Get Care for These POST- Warning SignsA few days after your discharge, one of our care coordinators may be calling you to see how things have been going at home. This phone call also gives you the opportunity to clarify any information on your discharge instructions or ask any questions that may have come up since leaving the hospital. [facility] (narrative)* Diagnostic Procedure Only (Routine) - Authorized Specialty Diagnoses / Procedures Referred By Contac t Referred To Contact [facility] Diagnoses Supervision of high risk in second trimester 16 weeks gestation of Procedures OBSTETRIC ULTRASOUND WHI US PREG UTERUS AFTER 1ST TRIMEST GESTATION Priscila Castro APRN.MOUNA [address] [place] [address] [address] Referral ID Status Reason Start Date Expiration Date Visits Requested Visits Authorized [id number] Authorized Auto-Generat ed Referral 4 01/06/2025 1 1 [facility] Chief Complaint * ESTABLISH CARE * FATIGUE * HIVES * WEIGHT GAIN Pt here for third degree tear during delivery,pelvic floor therapy* PPV * EPDS= 9 * Declined 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 Chief Complaint and Reason for Visit Chief Complaint DECREASED MOVE MENT Reason for Referral Specialty Diagnoses / Procedures Referred By Contac t Referred To Contact Diagnoses Suspected anomaly, antepartum, single or unspecified fetus Procedures CONSULT TO MEDICAL GENETICS - MEDICAL GENETICS COUNSELING EACH 30 [place]UTES [place], [place] [address] [place] [address] [address] Referral ID Status Reason Start Date Expiration Date Visits Requested Visits Authorized [id number] Authorized PCP Requested Referral Auto-Generate d Referral 4 02/14/2025 1 1 Specialty Diagnoses / Procedures Referred By Contac t Referred To Contact [facility] Diagnoses Suspected anomaly, antepartum, single or unspecified fetus Procedures OBSTETRIC ULTRASOUND WHI US PREG UTERUS AFTER 1ST [place] [address] [place] [address] [address] Referral ID Status Reason Start Date Expiration Date Visits Requested Visits Authorized [id number] New Request Auto-Generat ed Referral 4 02/14/2025 1 1 Specialty Diagnoses / Procedures Referred By Contac t Referred To Contact [facility] Diagnoses Suspected anomaly, antepartum, single or unspecified fetus [place] [address] [place] [address] [address] Referral ID Status Reason Start Date Expiration Date Visits Requested Visits Authorized [id number] New Request Auto-Generat ed Referral 4 02/14/2025 1 1 Summary Purpose Family History No Family History Records FoundNo Family History Records FoundNo Family History Records FoundNo Family History Records FoundNo Family History Records FoundNo Family History Records FoundNo Family History Records FoundNo Family History Records FoundNo Family History Records FoundNo Family History Records Found Advance Directives No Advanced Directives Records FoundNo Advanced Directives Records FoundNo Advanced Directives Records FoundNo Advanced Directives Records FoundNo Advanced Directives Records FoundNo Advanced Directives Records FoundNo Advanced Directives Records FoundNo Advanced Directives Records FoundNo Advanced Directives Records FoundNo Advanced Directives Records Found Additional Source Comments Care Teams (unrecognized sec tion and content) Team Status: Active Member Role Status Dates No Primary Care Physician Primary Care Provider Active Team Status: Inactive Member Role Status Dates No Primary Care Physician Primary Care Provider Active Dr. Bridget Perez MD Attending Provider Active Casing Builder Relationship Specialty Start Date End Date Bridget Abdul DO [address] [place] [address] PCP - General Family Medicine 07/26/22 Casing Builder Relationship Specialty Start Date End Date TommyBridget corona DO [address] [place] [address] PCP - General Family Medicine 07/26/22 Casing Builder Relationship Specialty Start Date End Date Tomas Paredes MD [address] [place] [id number] PCP - General 08/20/15 Casing Builder Relationship Specialty Start Date End [place] [address] PCP - General Family Medicine 11/29/23 Casing Builder Relationship Specialty Start Date End [place] [address] PCP - General Family Medicine 11/29/23 Casing Builder Relationship Specialty Start Date End [place] [address] PCP - General Family Medicine 11/29/23 Casing Builder Relationship Specialty Start Date End Date Esmer Crowley RN Judge Medicine 02/17/24 Casing Builder Relationship Specialty Start Date End Date Jsoeph Candelaria MD [address] [place] [address] PCP - General Family Medicine 11/29/23 Casing Builder Relationship Specialty Start Date End [place] [address] PCP - General Family Medicine 11/29/23 Casing Builder Relationship Specialty Start Date End Date Esmer Crowley field software engineerJudge Medicine 02/17/24 Casing Builder Relationship Specialty Start Date End Date SpaEsmer ramos field software engineerJudge Medicine 02/17/24 Casing Builder Relationship Specialty Start Date End Date Esmer Crowley field software engineerJudge Medicine 02/17/24 Casing Builder Relationship Specialty Start Date End Date SpaEsmer ramos field software engineerJudge Medicine 02/17/24 Casing Builder Relationship Specialty Start Date End Date Esmer Crowley field software engineerJudge Medicine 02/17/24 Casing Builder Relationship Specialty Start Date End Date Esmer Crowley field software engineerJudge Medicine 02/17/24 Casing Builder Relationship Specialty Start Date End Date Esmer Crowley field software engineerJudge Medicine 02/17/24 Casing Builder Relationship Specialty Start Date End Date Esmer Crowley field software engineerJudge Medicine 02/17/24 Casing Builder Relationship Specialty Start Date End Date SpaEsmer ramos field software engineerJudge Medicine 02/17/2404/22/24 Casing Builder Relationship Specialty Start Date End Date Joseph Candelaria MD [address] [place] [address] PCP - General Family Medicine 11/29/23 Casing Builder Relationship Specialty Start Date End Date Esmer Crowley field software engineerJudge Medicine 02/17/2404/22/24 Casing Builder Relationship Specialty Start Date End Date Joseph Candelaria MD [address] [place] [address] PCP - General Family Medicine 11/29/23 Rosette Joe APRN - CNP [address] [place], [place] [id number] Nurse Practitioner Nurse Practitioner [facility] 09/14/24 Casing Builder Relationship Specialty Start Date End Date Joseph Candelaria MD [address] [place] [address] PCP - General Family Medicine 11/29/23 Rosette Joe APRN - CNP [address] [place] [address] Nurse Practitioner Nurse Practitioner [facility] 09/14/24 Casing Builder Relationship Specialty Start Date End Date Joseph Candelaria MD [address] [place] [address] PCP - General Family Medicine 11/29/23 Rosette Joe APRN - CNP [address] [place] [address] Nurse Practitioner Nurse Practitioner [facility] 09/14/24 Casing Builder Relationship Specialty Start Date End Date Joseph Candelaria MD [address] [place] [address] PCP - General Family Medicine 11/29/23 Rosette Joe APRN - CNP [address] [place] [address] Nurse Practitioner Nurse Practitioner [facility] 09/14/24 Goals (unrecognized section and content) Goals may be documented in a n alternate section <item> Privacy Markings (unrecogniz ed section and content) Section Author: Zoë Maki PROHIBITION ON REDISCLOSURE OF CONFIDENTIAL INFORMATION This notice accompanies a disclosure of information concerning a client made to you with the consent of such client. INFORMATION SOURCE (unrecogn ized section and content) DATE CREATED AUTHOR 10/03/2022 [facility] DATE CREATED AUTHOR AUTHOR'S ORGANIZ ATION 10/07/2022 [facility] DATE CREATED AUTHOR AUTHOR'S ORGANIZ ATION 10/14/2022 [facility] DATE CREATED AUTHOR AUTHOR'S ORGANIZ ATION 02/06/2023 [facility] DATE CREATED AUTHOR AUTHOR'S ORGANIZ ATION 03/14/[address] [facility] DATE CREATED AUTHOR AUTHOR'S ORGANIZ ATION 02/19/2024 [facility] DATE CREATED AUTHOR AUTHOR'S ORGANIZ ATION 04/11/2024 [facility] DATE CREATED AUTHOR AUTHOR'S ORGANIZ ATION 05/14/2024 [facility] DATE CREATED AUTHOR AUTHOR'S ORGANIZ ATION 11/08/2024 [facility] DATE CREATED AUTHOR AUTHOR'S ORGANIZ ATION 01/01/2025 [facility] Reason for Visit (unrecogniz ed section and content) Reason Comments Urinary Incontinence Reason Comments Annual Exam Depression Hypothyroidism Rash Reason Onset Date Comments New Patient 10/26/2023 Reason Comments Appointment Reason Comments Initial OB Visit Reason Comments New Patient Health Maintenance TSH Level-pended MMR Vaccines -declined Pneumococcal Vaccine-declined Depression Monitoring-completed Varicella Vaccines -declined Hepatitis B Vaccines -declined Influenza Vaccine -declined COVID-19 Vaccine-declined Reason Onset Date Comments Results 11/30/2023 Reason Onset Date Comments Care 12/10/2023 Reason Comments Orders Reason Onset Date Comments Results 12/31/2023 Reason Onset Date Comments Care 01/07/2024 Reason Onset Date Comments Med Refill 02/14/2024 Reason Onset Date Comments Care 02/15/2024 Reason Comments US Specialty Diagnoses / Procedures Referred By Contac t Referred To Contact [facility] Diagnoses Supervision of high risk in second trimester 16 weeks gestation of Procedures OBSTETRIC ULTRASOUND WHI US PREG UTERUS AFTER 1ST TRIMEST GESTATION Priscila Castro APRN.COSMETICIAN [address] 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 Reason Onset Date Comments Med Refill 02/18/2024 Reason Comments Results Reason Comments Genetics Care Reason Onset Date Comments Care 03/14/2024 Reason Comments Care Plan Care Coordination Reason Onset Date Comments Med Refill 03/21/2024 Reason Comments US Specialty Diagnoses / Procedures Referred By Contac t Referred To Contact [facility] Diagnoses Suspected anomaly, antepartum, single or unspecified fetus Procedures OBSTETRIC ULTRASOUND WHI US PREG UTERUS AFTER 1ST [place] [address] [place] [address] [address] Referral ID Status Reason Start Date Expiration Date V isits Requested Visits Authorized [id number] Closed Auto-Generate d Referral 02/15/2024 02/14/2025 1 1 Reason Comments Care US 25 weeks gestation Specialty Diagnoses / Procedures Referred By Contac t Referred To Contact [facility] Diagnoses Supervision of high risk in third trimester Procedures OBSTETRIC ULTRASOUND WHI US PREG UTERUS AFTER 1ST [place] [address] [address] [address] Phone: tel: fax: [address] [address] Referral ID Status Reason Start Date Expiration Date V isits Requested Visits Authorized [id number] Closed Auto-Generate d Referral 04/10/2024 04/10/2025 1 1 Reason Onset Date Comments Care 04/11/2024 Reason Onset Date Comments Care 04/17/2024 Reason Comments Ob Delivery Note Reason Onset Date Comments Med Refill 04/23/2024 Reason Comments Routine Reason Comments Med Refill Reason Onset Date Comments Results 06/21/2024 Lab Orders 06/21/2024 TSH due beginnin g december Reason Comments Contraception Reason Comments Annual Exam Blood Work Health Maintenance Flu vaccine- refuse Reason Onset Date Comments Results 11/29/2024 Source Comments (unrecognize d section and content) In the event this informatio n is protected by the Federal Confidentiality of Alcohol and Drug Abuse Patient Records regulations: The Federal rules restrict any use of the information to criminally investigate or prosecute any alcohol or drug abuse patient.[facility] the event this information is protected by the Federal Confidentiality of Alcohol and Drug Abuse Patient Records regulations: The Federal rules restrict any use of the information to criminally investigate or prosecute any alcohol or drug abuse patient.[facility] HospitalIn the event this information is protected by the Federal Confidentiality of Alcohol and Drug Abuse Patient Records regulations: The Federal rules restrict any use of the information to criminally investigate or prosecute any alcohol or drug abuse patient.[facility] HospitalIn the event this information is protected by the Federal Confidentiality of Alcohol and Drug Abuse Patient Records regulations: The Federal rules restrict any use of the information to criminally investigate or prosecute any alcohol or drug abuse patient.[facility] HospitalIn the event this information is protected by the Federal Confidentiality of Alcohol and Drug Abuse Patient Records regulations: The Federal rules restrict any use of the information to criminally investigate or prosecute any alcohol or drug abuse patient.[facility] HospitalIn the event this information is protected by the Federal Confidentiality of Alcohol and Drug Abuse Patient Records regulations: The Federal rules restrict any use of the information to criminally investigate or prosecute any alcohol or drug abuse patient.[facility] HospitalIn the event this information is protected by the Federal Confidentiality of Alcohol and Drug Abuse Patient Records regulations: The Federal rules restrict any use of the information to criminally investigate or prosecute any alcohol or drug abuse patient.[facility] HospitalIn the event this information is protected by the Federal Confidentiality of Alcohol and Drug Abuse Patient Records regulations: The Federal rules restrict any use of the information to criminally investigate or prosecute any alcohol or drug abuse patient.[facility] HospitalIn the event this information is protected by the Federal Confidentiality of Alcohol and Drug Abuse Patient Records regulations: The Federal rules restrict any use of the information to criminally investigate or prosecute any alcohol or drug abuse patient.[facility] HospitalIn the event this information is protected by the Federal Confidentiality of Alcohol and Drug Abuse Patient Records regulations: The Federal rules restrict any use of the information to criminally investigate or prosecute any alcohol or drug abuse patient.[facility] HospitalIn the event this information is protected by the Federal Confidentiality of Alcohol and Drug Abuse Patient Records regulations: The Federal rules restrict any use of the information to criminally investigate or prosecute any alcohol or drug abuse patient.[facility] HospitalIn the event this information is protected by the Federal Confidentiality of Alcohol and Drug Abuse Patient Records regulations: The Federal rules restrict any use of the information to criminally investigate or prosecute any alcohol or drug abuse patient.[facility] HospitalIn the event this information is protected by the Federal Confidentiality of Alcohol and Drug Abuse Patient Records regulations: The Federal rules restrict any use of the information to criminally investigate or prosecute any alcohol or drug abuse patient.[facility] HospitalIn the event this information is protected by the Federal Confidentiality of Alcohol and Drug Abuse Patient Records regulations: The Federal rules restrict any use of the information to criminally investigate or prosecute any alcohol or drug abuse patient.[facility] HospitalIn the event this information is protected by the Federal Confidentiality of Alcohol and Drug Abuse Patient Records regulations: The Federal rules restrict any use of the information to criminally investigate or prosecute any alcohol or drug abuse patient.[facility] HospitalIn the event this information is protected by the Federal Confidentiality of Alcohol and Drug Abuse Patient Records regulations: The Federal rules restrict any use of the information to criminally investigate or prosecute any alcohol or drug abuse patient.[facility] HospitalIn the event this information is protected by the Federal Confidentiality of Alcohol and Drug Abuse Patient Records regulations: The Federal rules restrict any use of the information to criminally investigate or prosecute any alcohol or drug abuse patient.[facility] HospitalIn the event this information is protected by the Federal Confidentiality of Alcohol and Drug Abuse Patient Records regulations: The Federal rules restrict any use of the information to criminally investigate or prosecute any alcohol or drug abuse patient.[facility] HospitalIn the event this information is protected by the Federal Confidentiality of Alcohol and Drug Abuse Patient Records regulations: The Federal rules restrict any use of the information to criminally investigate or prosecute any alcohol or drug abuse patient.[facility] HospitalIn the event this information is protected by the Federal Confidentiality of Alcohol and Drug Abuse Patient Records regulations: The Federal rules restrict any use of the information to criminally investigate or prosecute any alcohol or drug abuse patient.[facility]In the event this information is protected by the Federal Confidentiality of Alcohol and Drug Abuse Patient Records regulations: The Federal rules restrict any use of the information to criminally investigate or prosecute any alcohol or drug abuse patient.[facility] HospitalIn the event this information is protected by the Federal Confidentiality of Alcohol and Drug Abuse Patient Records regulations: The Federal rules restrict any use of the information to criminally investigate or prosecute any alcohol or drug abuse patient.[facility] HospitalIn the event this information is protected by the Federal Confidentiality of Alcohol and Drug Abuse Patient Records regulations: The Federal rules restrict any use of the information to criminally investigate or prosecute any alcohol or drug abuse patient.[facility] HospitalIn the event this information is protected by the Federal Confidentiality of Alcohol and Drug Abuse Patient Records regulations: The Federal rules restrict any use of the information to criminally investigate or prosecute any alcohol or drug abuse patient.[facility] HospitalIn the event this information is protected by the Federal Confidentiality of Alcohol and Drug Abuse Patient Records regulations: The Federal rules restrict any use of the information to criminally investigate or prosecute any alcohol or drug abuse patient.[facility] HospitalIn the event this information is protected by the Federal Confidentiality of Alcohol and Drug Abuse Patient Records regulations: The Federal rules restrict any use of the information to criminally investigate or prosecute any alcohol or drug abuse patient.[facility] HospitalIn the event this information is protected by the Federal Confidentiality of Alcohol and Drug Abuse Patient Records regulations: The Federal rules restrict any use of the information to criminally investigate or prosecute any alcohol or drug abuse patient.[facility] HospitalIn the event this information is protected by the Federal Confidentiality of Alcohol and Drug Abuse Patient Records regulations: The Federal rules restrict any use of the information to criminally investigate or prosecute any alcohol or drug abuse patient.[facility] FOR RECORDS PERTAINING TO PATIENTS WHO ARE OR HAVE BEEN ENROLLED IN A CHEMICAL DEPENDENCY/SUBSTANCEABUSE PROGRAM, SOME INFORMATION MAY BE OMITTED. This clinical summary was aggregated from multiple sources. Caution should be exercised in using it in the provision of clinical care. This summary normalizes information from multiple sources, and as a consequence, information in this document may materially change the coding, format and clinical context of patient data. In addition, data may be omitted in some cases. CLINICAL DECISIONS SHOULD BE BASED ON THE PRIMARY CLINICAL RECORDS. [facility] [employer] [facility]. provides no warranty or guarantee of the accuracy or completeness of information in this document.
[2025-02-03 19:38] LABS: Hematocrit 41.7 % (37-47); Hemoglobin 14.4 g/dL (12.0-15.0); Immature Granulocytes Count 0.040 X10^3/uL (0.0-0.0); Mean Corp Hgb Conc 34.5 g/dL (32-36); Mean Corpuscular Volume 92.3 fL (81-99); Mean Platelet Vol. 9.6 fl (6.2-12.0); NRBC Flagged by Analyzer 0 % (0-5); POSITIVE DIFFERENTIAL YES; Platelet Count 226 K/mm3 (150-450); RBC Distribution Width CV 11.5 % (11.6-14.6); RBC Distribution Width SD 38.9 fl (35.1-43.9); Red Blood Count 4.52 M/mm3 (4.2-5.4); White Blood Count 12.9 K/mm3 (4.4-11.0)
[2025-02-03 19:49] LABS: Internal QC Validated? YES +Cl - CLEAR BKGD; Pregnancy, Serum, hCG Quali. NEGATIVE Negative
[2025-02-03 19:59] LABS: AST(SGOT) 18 U/L (<=31); Alanine Aminotransfer ALT/SGPT 13 U/L (<=34); Albumin, Serum 4.3 g/dL (3.5-5.0); Alkaline Phosphatase 57 U/L (35-104); Anion Gap 12 (5-15); BUN 15 mg/dL (4-19); BUN/Creat Ratio 22.4 RATIO (10-20); Bilirubin, Direct 0.36 mg/dL (0.00-0.30); Calcium,Total 8.9 mg/dL (7.6-11.0); Carbon Dioxide 21.4 mmol/L (21.0-32.0); Chloride 106 mmol/L (98-108); Estimated Creatinine Clearance 122.30 ml/min (50-250); Globulin 2.8 g/dL (2.2-4.2); Glucose 112 mg/dL (70-99); Lipase 14 U/L (13-75); Potassium 3.9 mmol/L (3.3-5.1)
--- NOTE | 2025-02-03 20:13 | CT_ITS ---
PROCEDURE: ABDOMEN/PELVIS W IV CONT ONLY 02/03/2025 REASON FOR EXAM: RLQ PAIN TECHNIQUE: Procedure Code: [id number] Modality: CT Procedure: ABDOMEN/PELVIS W IV CONT ONLY Coronal and Sagittal reconstruction series were provided. CONTRAST: VOLUME: mL One or more dose reduction techniques were used (e.g., Automated exposure control, adjustment of the mA and/or kV according to patient size, use of iterative reconstruction technique. FINDINGS: The visualized lung bases are clear. Bilateral breast implants are incompletely imaged. The liver, gallbladder, pancreas, spleen, adrenal glands, kidneys, and urinary bladder appear unremarkable. Fluid is noted within the endocervical canal. Please correlate with the patient's menstrual cycle. No evidence of a bowel obstruction. Mildly thickened loops of jejunum are noted within the left upper quadrant, suggestive of mild jejunitis. The appendix is partially visualized and grossly unremarkable. No overt inflammatory changes are noted in the pericecal region. No intraperitoneal free air or free fluid. No abdominal nor pelvic lymphadenopathy. No acute osseous abnormality. No acute fracture. CT/Abdomen/Pelvis W IV Cont ONLY IMPRESSION: Mildly thickened loops of jejunum within the left upper quadrant, suggestive of mild jejunitis. Fluid within the endocervical canal. Please correlate with the patient's menst rual cycle. Reading Location: [id number]
[2025-02-03 21:00] VITALS: BP 117/70; PULSE 80; RESP 16; O2SAT 99
[2025-02-03 21:38] VITALS: BP 117/70; PULSE 80; RESP 16; TEMP 36.8; O2SAT 99
== END 2025-02-03 21:39 | disposition home or self-care (01) ==
PROVIDERS: Emergency Provider Emergency Medicine; PCP Family Medicine; Visit Provider Emergency Medicine
DX: R10.9 Unspecified abdominal pain (principal); R19.7 Diarrhea, unspecified; R11.10 Vomiting, unspecified; F32.A Depression, unspecified; F41.9 Anxiety disorder, unspecified; Z79.899 Other long term (current) drug therapy; E03.9 Hypothyroidism, unspecified; Z79.890 Hormone replacement therapy
CPT/HCPCS: 74177; 80048; 80076; 83690; 84703; 85025; 96361; 96374; 99283; Q9967; J2405